=== PATIENT | male | born 1935 | race African-American/Black ===

== ENCOUNTER 2020-05-22 12:48 | Inpatient (IN) | payer MEDICARE ==
[2020-05-22] MEDS ORDERED: ACETAMINOPHEN 325 MG TABLET PO ONE (14:28)
--- NOTE | 2020-05-22 14:30 | ER Document Report ---
ED Medical Screen (RME) - General Chief Complaint: Weakness Stated Complaint: WEAKNESS,CHILLS,NO TASTE Time Seen by Provider: 05/22/20 14:18 Primary Care Provider: AMANDA HERNANDEZ MD [Primary Care Provider] - Follow up as needed Mode of Arrival: Wheelchair Information source: Patient, Relative Notes: HPI; 84-year-old male was brought to emergency room by his daughter complaining of decreased appetite, body aches, chills, loss of taste and smell for the past 5 days. Denies any fevers. No nausea, no vomiting, no shortness of breath, no chest pain complaining of generalized weakness. No COVID-19 exposure. PE: Alert and oriented x3. Lungs: Scattered rhonchi no wheezes no rales, heart: Tachycardic without murmurs, rubs, gallops. I have greeted and performed a rapid initial assessment of this patient. A comprehensive ED assessment and evaluation of the patient, analysis of test results and completion of the medical decision making process will be conducted by additional ED providers. I have specifically instructed the patient or family members with the patient to immediately return to any nursing staff should anything change in the patient's condition or with their chief complaint. TRAVEL OUTSIDE OF THE [place] IN LAST 30 DAYS: No - Related Data Allergies/Adverse Reactions: No Known Allergies Allergy (Unverified 04/03/11 12:44) Past Medical History - Past Medical History Cardiac Medical History: Reports: Hx Hypertension Pulmonary Medical History: Denies: Hx Tuberculosis GI Medical History: Reports: Hx Gastroesophageal Reflux Disease Musculoskeltal Medical History: Reports Hx Arthritis Past Surgical History: Denies: Hx Pacemaker - Immunizations Hx Diphtheria, Pertussis, Tetanus Vaccination: Yes Doctor's Discharge - Discharge Referrals: AMANDA HERNANDEZ MD [Primary Care Provider] - Follow up as needed
--- NOTE | 2020-05-22 16:14 | RADIOLOGY REPORT (SQ) ---
EXAM DESCRIPTION: CHEST SINGLE VIEW IMAGES COMPLETED DATE/TIME: 05/22/2020 2:32 pm REASON FOR STUDY: weakness COMPARISON: 04/09/2011 EXAM PARAMETERS: NUMBER OF VIEWS: One view. TECHNIQUE: Single frontal radiographic view of the chest acquired. RADIATION DOSE: NA LIMITATIONS: None. FINDINGS: LUNGS AND PLEURA: Lungs are hyperinflated. No opacities, masses or pneumothorax. No pleur al effusion. MEDIASTINUM AND HILAR STRUCTURES: No masses. Contour normal. HEART AND VASCULAR STRUCTURES: Heart normal in size. Normal vasculature. BONES: No acute findings. HARDWARE: None in the chest. OTHER: No other significant finding. IMPRESSION: NO ACUTE RADIOGRAPHIC FINDING IN THE CHEST. TECHNICAL DOCUMENTATION: JOB ID: [id number] 2010 [employer]- All Rights Reserved Reading location - IP/workstation name: [email or web address]
[2020-05-22] MEDS ORDERED: NORMAL SALINE 1000 ML 1,000 ML IV ONE (17:22)
--- NOTE | 2020-05-22 17:24 | ER Document Report ---
ED General - General Chief Complaint: General Weakness Stated Complaint: WEAKNESS,CHILLS,NO TASTE Time Seen by Provider: 05/22/20 14:18 Mode of Arrival: Wheelchair Information source: Patient Notes: This 84-year-old man presents to the emergency department with a history of decreased appetite and states that the smell of food makes him sick. He has had no nausea no vomiting or diarrhea. He has been very weak and lying around all week and sleeping. He also denies fever or contact with a known coronavirus positive individual. His family has insisted that he come to the emergency department for further evaluation and treatment. He denies chest pain or shortness of breath he denies cough or fever. TRAVEL OUTSIDE OF THE [place] IN LAST 30 DAYS: No - Related Data Allergies/Adverse Reactions: No Known Allergies Allergy (Verified 05/22/20 16:36) Past Medical History - General Information source: Patient, Relative - Social History Smoking Status: Former Smoker Chew tobacco use (# tins/day): No Frequency of alcohol use: None Drug Abuse: None Family History: Reviewed & Not Pertinent Patient has homicidal ideation: No - Past Medical History Cardiac Medical History: Reports: Hx Hypertension Pulmonary Medical History: Denies: Hx Tuberculosis GI Medical History: Reports: Hx Gastroesophageal Reflux Disease Musculoskeletal Medical History: Reports Hx Arthritis Past Surgical History: Denies: Hx Pacemaker - Immunizations Hx Diphtheria, Pertussis, Tetanus Vaccination: Yes Review of Systems - Review of Systems Notes: Constitutional: + Generalized weakness, + loss of appetite HENT: Negative for sore throat. Eyes: Negative for visual changes. Cardiovascular: Negative for chest pain. Respiratory: Negative for shortness of breath. Gastrointestinal: Negative for abdominal pain, vomiting or diarrhea. Genitourinary: Negative for dysuria. Musculoskeletal: Negative for back pain. Skin: Negative for rash. Neurological: Negative for headaches, weakness or numbness. 10 point ROS negative except as marked above and in HPI. Physical Exam - Vital signs Vitals: Temp Pulse Resp BP Pulse Ox 101.3 F H 111 H 22 H 135/87 H 95 05/22/20 15:58 05/22/20 15:58 05/22/20 15:58 05/22/20 15:58 05/22/20 15:58 - Notes Notes: PHYSICAL EXAMINATION: Physical Exam: General: Well-nourished well-developed 84-year-old man in no acute distress HEENT: NC/AT, pupils equal round and reactive to light, MM moist,nares clear, oropharynx clear, airway patent Neck: supple, no adenopathy, no masses. Good range of motion Lungs: clear, no wheezing, no rales no rhonchi CVS: Regular rate and rhythm no murmur gallop or rub Abdomen: Soft, active, nontender, no masses, no hepatosplenomegaly Ext: No edema, clubbing or cyanosis. Neuro: Alert and responsive, moving all 4 extremities on command, cranial nerves intact, no focal findings Skin: Intact no open lesions, no rash Course - Re-evaluation Re-evalutation: 05/23/20 00:28 Patient had presented with generalized weakness, loss of appetite, poor intake. While at the hospital his O2 sat which was at 95% decreased down to 89% on room air. Patient is now on 3 L of O2. His coronavirus test is positive CT scan reveals bibasilar changes greater on the right than left? Infiltrate., he was febrile 101, white blood cell count was normal. A ferritin, CRP, sed rate, LDH, and D-dimer are added to his lab work. I spoken with Dr Cordoba will admit the patient to [facility]. I will add Zithromax to the Decadron for treatment. Given the patient's age he is high risk. 05/22/20 22:35 05/23/20 00:28 - Vital Signs Vital signs: Temp Pulse Resp BP Pulse Ox 98.7 F 70 31 H 138/59 H 93 05/23/20 16:26 05/23/20 16:26 05/23/20 17:01 05/23/20 17:00 05/23/20 17:01 - Laboratory Results Result Diagrams: 05/22/20 16:22 05/22/20 16:22 Laboratory Results Interpreted: 05/22/20 05/22/20 05/22/20 16:22 16:22 16:22 RBC 5.62 H RDW 16.8 H Lymph % (Auto) 7.0 L Seg Neutrophils % 88.6 H ESR D-Dimer BUN 23 H Creatinine 1.40 H Est GFR ( Amer) 59 L Est GFR (MDRD) Non-Af 48 L Glucose 113 H Lactic Acid 3.8 H Ferritin C-Reactive Protein Urine Protein Urine Ketones 12/26/20 12/26/20 12/26/20 16:22 19:50 22:55 RBC RDW Lymph % (Auto) Seg Neutrophils % ESR 23 H D-Dimer BUN Creatinine Est GFR ( Amer) Est GFR (MDRD) Non-Af Glucose Lactic Acid Ferritin 1150.00 H C-Reactive Protein 219.9 H Urine Protein 100 H Urine Ketones TRACE H 05/22/20 22:55 RBC RDW Lymph % (Auto) Seg Neutrophils % ESR D-Dimer 0.65 H BUN Creatinine Est GFR ( Amer) Est GFR (MDRD) Non-Af Glucose Lactic Acid Ferritin C-Reactive Protein Urine Protein Urine Ketones Critical Laboratory Results Reviewed: Yes Attending or Supervising Physician who Reviewed Labs: ARLEY BOCANEGRA - Lactic acid of 3.8 - Radiology Results Radiology Results Interpreted: 05/22/20 22:35 Chest X-Ray 05/22/20 14:26 IMPRESSION: NO ACUTE RADIOGRAPHIC FINDING IN THE CHEST. Abdomen/Pelvis CT 05/22/20 17:23 IMPRESSION: Mild basilar atelectasis or infiltration, greater on the right. No acute abnormality is seen within the abdomen or pelvis. Additional, chronic-appearing findings are noted as above. TECHNICAL DOCUMENTATION: Quality ID # 436: Final reports with documentation of one or more dose reduction techniques (e.g., Automated exposure control, adjustment of the mA and/or kV according to patient size, use of iterative reconstruction technique) copyright 2011 [employer]- All Rights Reserved Critical Radiology Results Reviewed: Yes Attending or Supervising Physician who Reviewed Radiology: ARLEY BOCANEGRA - EKG Interpretation by Wi Rate: Tachycardia - EKG interpreted by Dr. Bocanegra: Sinus tachycardia, rate 117, CT interval 192 ms, QT 316, QTc 441, left axis deviation, no acute ST or T wave abnormalities, no ischemic findings, , there is no prior EKG for comparison. Interpretation: Abnormal EKG Critical Care Note - Critical Care Note Total time excluding time spent on procedures (mins): 60 - Critical care time spent obtaining history from patient or surrogate, discussions with consultants, development of treatment plan with patient or surrogate, evaluation of patient's response to treatment, examination of patient, ordering and performing treatments and interventions, ordering and review of laboratory studies, re-evaluation of patient's condition, ordering and review of radiographic studies and review of old charts Discharge - Discharge Clinical Impression: COVID-19 virus infection, Hypoxia, Elevated lactic acid level Pneumonia Qualifiers: Pneumonia type: due to unspecified organism Laterality: bilateral Lung location: lower lobe of lung Qualified Code(s): J18.9 - Pneumonia, unspecified organism Fever Qualifiers: Fever type: unspecified Qualified Code(s): R50.9 - Fever, unspecified Condition: Good Disposition: ADMITTED INPATIENT Admitting Provider: [facility] Admitted: [facility]
[2020-05-22 17:35] LABS: ABSOLUTE LYMPHOCYTES (AUTO) 0.5 10^3/uL (0.5-4.7); ABSOLUTE MONOCYTES (AUTO) 0.3 10^3/uL (0.1-1.4); ABSOLUTE NEUT (AUTO) 6.5 10^3/uL (1.7-8.2); BASOPHILS % (AUTO) 0.5 % (0-2); EOSINOPHILS % (AUTO) 0.1 % (0-6); HEMATOCRIT 47.3 % (37.9-51.0); HEMOGLOBIN 15.6 g/dL (13.5-17.0); MEAN CORPUSCULAR HEMOGLOBIN 27.8 pg (27.0-33.4); MEAN CORPUSCULAR VOLUME 84 fl (80-97); MONOCYTES % (AUTO) 3.8 % (3-13); RED BLOOD COUNT 5.62 10^6/uL (4.35-5.55); RED CELL DISTRIBUTION WIDTH 16.8 % (11.5-14.0); SEGMENTED NEUTROPHILS % (AUTO) 88.6 % (42-78); TOTAL CELLS COUNTED % (AUTO) 100 %; WHITE BLOOD COUNT 7.4 10^3/uL (4.0-10.5)
[2020-05-22 17:45] LABS: ALBUMIN 3.5 g/dL (3.5-5.0); ALKALINE PHOSPHATASE 74 U/L (38-126); ANION GAP 13 (5-19); ASPARTATE AMINO TRANSFERASE 41 U/L (17-59); BILIRUBIN,DIRECT 0.3 mg/dL (0.0-0.4); BILIRUBIN,TOTAL 0.6 mg/dL (0.2-1.3); BLOOD UREA NITROGEN 23 mg/dL (7-20); CALCIUM 8.9 mg/dL (8.4-10.2); CARBON DIOXIDE 25 mmol/L (22-30); CHLORIDE 102 mmol/L (98-107); GLUCOSE 113 mg/dL (75-110); POTASSIUM 4.1 mmol/L (3.6-5.0); TOTAL PROTEIN 7.1 g/dL (6.3-8.2)
[2020-05-22 17:54] LABS: PLATELET COUNT 200 10^3/uL (150-450)
[2020-05-22] MEDS ORDERED: NORMAL SALINE IV ONE (19:29)
--- NOTE | 2020-05-22 20:26 | RADIOLOGY REPORT (SQ) ---
EXAM DESCRIPTION: CT ABDOMEN PELVIS WITH IV CONTRAST COMPLETED DATE/TME: 05/22/2020 19:25 CLINICAL HISTORY: 84 years, Male, Weakness, nausea COMPARISON: None. TECHNIQUE: Postcontrast images of the abdomen and pelvis were obtained utilizing 100 mL Omnipaque 350 intravenously. Images stored on PACS. All CT scanners at this facility use dose modulation, iterative reconstruction, and/or weight based dosing when appropriate to reduce radiation dose to as low as reasonably achievable (ALARA). [facility]: Dose Right [facility]: CareDose [facility]: Dose Right [facility]: Teradose 4D [facility]: [employer] LIMITATIONS: None. FINDINGS: Initial images through the lung bases reveal mild bibasilar atelectasis or infiltration, greater on the right. Heart size is normal. There are no effusions within the lower chest. There is a small hiatal hernia. There are bilateral renal hypodensities, measuring up to 1.7 cm on the right and 0.8 cm on the left. Largest hypodensity within the right kidney has an internal Hounsfield density of 8, consistent with a cyst. The smaller renal hypodensities are too small to further characterize but most likely represent cysts as well. The spleen, adrenals, pancreas, and liver are within normal limits. Gallbladder is dilated to 4.4 cm but is otherwise grossly unremarkable. There is no evidence of abnormal biliary ductal dilation. There is no abnormal bowel dilation. There is colonic diverticulosis without evidence of diverticulitis. The prostate gland is mildly enlarged at 5 cm for which clinical correlation is recommended. There is no free fluid, free air, or lymphadenopathy. The appendix appears within normal limits. There is multilevel degenerative change about the spine. There is a small fat-containing umbilical hernia appear IMPRESSION: Mild basilar atelectasis or infiltration, greater on the right. No acute abnormality is seen within the abdomen or pelvis. Additional, chronic-appearing findings are noted as above. TECHNICAL DOCUMENTATION: Quality ID # 436: Final reports with documentation of one or more dose reduction techniques (e.g., Automated exposure control, adjustment of the mA and/or kV according to patient size, use of iterative reconstruction technique) copyright 2011 [employer]- All Rights Reserved
[2020-05-22 20:36] LABS: APPEARANCE,URINE SLIGHTLY-CLOUDY; BILIRUBIN,URINE NEGATIVE (NEGATIVE); COLOR,URINE DARK YELLOW; GLUCOSE, URINE NEGATIVE (NEGATIVE); KETONES,URINE TRACE mg/dL (NEGATIVE); PROTEIN,URINE 100 mg/dL (NEGATIVE); URINE SPECIFIC GRAVITY 1.026; UROBILINOGEN,URINE NEGATIVE mg/dL (<2.0)
--- NOTE | 2020-05-22 22:09 | EKG REPORT ---
SEVERITY:- ABNORMAL ECG - SINUS TACHYCARDIA LEFT ANTERIOR FASCICULAR BLOCK ABNRM R PROG, CONSIDER ASMI OR LEAD PLACEMENT : Confirmed by: Yomi Rodriguez MD 22-May-2020 22:08:59
[2020-05-22] MEDS ORDERED: DEXAMETHASONE SOD PHOS INJ 10 MG/1 ML VIAL IV ONE (22:19)
[2020-05-22] MEDS ORDERED: AZITHROMYCIN INJ 500 MG VIAL IV ONE (22:21)
[2020-05-22 23:29] LABS: C-REACTIVE PROTEIN 219.9 mg/L (<10.0)
[2020-05-23] MEDS: NORMAL SALINE 1000 ML 1,000 ML IV PRN ×2 (06:09→21:57)
[2020-05-23] MEDS ORDERED: NORMAL SALINE 250 ML IV PRN (07:58)
[2020-05-23] MEDS: ASPIRIN 81 MG TABLET, ENT COATED PO SCH (09:47)
[2020-05-23] MEDS: FAMOTIDINE 20 MG TABLET PO SCH ×2 (09:47→21:55)
[2020-05-23] MEDS: CHOLECALCIFEROL (D3) 1,000 UNIT (25 MCG) TABLET PO SCH (09:47)
[2020-05-23] MEDS: ASCORBIC ACID 500 MG TABLET PO SCH ×2 (09:47→18:56)
[2020-05-23] MEDS: ENOXAPARIN SODIUM INJ 40 MG/0.4 ML DISP.SYRIN SUBCUT SCH (09:48)
[2020-05-23] MEDS: DEXAMETHASONE SOD PHOS INJ 10 MG/1 ML VIAL IV SCH (09:48)
[2020-05-23] MEDS: ZINC SULFATE 220 MG CAPSULE PO SCH (09:49)
[2020-05-23] MEDS ORDERED: IVERMECTIN 3 MG TABLET PO ONE (10:00)
--- NOTE | 2020-05-23 14:24 | PDOC H&P ---
History of Present Illness Admission Date/PCP: 05/23/20 00:37 AMANDA HERNANDEZ MD Patient complains of: Generalized weakness History of Present Illness: DARSHANA SCOTT SR is a 84 year old male patient of Dr. Hernandez who presented to the ED with several days history of generalized weakness, lack on interest in his usual activity with family claiming that patient was just laying around at home. He reported loss of taste and poor oral intake for several days. He denied any nausea, vomiting, diarrhea, or abdominal pain. No fever or chills. He denied any dysuria, hematuria, or flank pain. He denied exposure to guerrero virus infected person or outside of his usual abode environment. His initial ED evaluation revealed positive COVID-19 infection status, elevated lactic acid level, elevated inflammatory indices, and slightly elevated D-Dimer. He was advised hospitalization for further evaluation and management. His morbidities are as listed below. Past Medical History Cardiac Medical History: Reports: Hypertension Pulmonary Medical History: Denies: Tuberculosis Renal/ Medical History: Reports: Other - BPH with LUTS GI Medical History: Reports: Gastroesophageal Reflux Disease Musculoskeltal Medical History: Reports: Arthritis Past Surgical History Past Surgical History: Denies: Pacemaker Social History Smoking Status: Former Smoker Electronic Cigarette use?: No Hx Recreational Drug Use: No Hx Prescription Drug Abuse: No - Advance Directive Resuscitation Status: Full Code Family History Parental Family History Reviewed: Yes Children Family History Reviewed: Yes Sibling(s) Family History Reviewed.: Yes Medication/Allergy Home Medications: Finasteride 5 mg PO DAILY 04/03/11 Omeprazole [Prilosec] 20 mg PO DAILY 04/03/11 Prednisone [Deltasone 10 mg Tablet] 10 mg PO DAILY 04/03/11 Amlodipine Besylate [Norvasc 10 mg Tablet] 10 mg PO DAILY 05/23/20 Metoprolol Succinate [Toprol Xl] 200 mg PO DAILY 05/23/20 Tamsulosin HCl [Flomax 0.4 mg Cap.sr] 0.4 mg PO DAILY 05/23/20 Valsartan/Hydrochlorothiazide [Valsartan-Hctz 160-12.5 mg Tab] 1 each PO DAILY 05/23/20 Allergies/Adverse Reactions: No Known Allergies Allergy (Verified 05/22/20 16:36) Review of Systems Constitutional: PRESENT: fatigue, weakness. ABSENT: chills, fever(s), headache(s) Eyes: ABSENT: visual disturbances Ears: ABSENT: hearing changes Nose, Mouth, and Throat: ABSENT: headache(s), sore throat Cardiovascular: ABSENT: chest pain, dyspnea on exertion, edema, orthropnea, palpitations Respiratory: ABSENT: cough, hemoptysis Gastrointestinal: ABSENT: abdominal pain, constipation, diarrhea, hematemesis, hematochezia, nausea, vomiting Genitourinary: ABSENT: dysuria, hematuria Musculoskeletal: ABSENT: joint swelling Integumentary: ABSENT: rash, wounds Neurological: ABSENT: abnormal gait, abnormal speech, confusion, dizziness, focal weakness, syncope Psychiatric: ABSENT: anxiety, depression, homidical ideation, suicidal ideation Endocrine: ABSENT: cold intolerance, heat intolerance, polydipsia, polyuria Hematologic/Lymphatic: ABSENT: easy bleeding, easy bruising, lymphadenopathy Allergic/Immunologic: ABSENT: seasonal rhinorrhea Physical Exam Vital Signs: Temp Pulse Resp BP Pulse Ox 98.7 F 87 17 114/60 96 05/23/20 06:10 05/22/20 19:43 05/23/20 07:01 05/23/20 07:00 05/23/20 07:01 Intake & Output 05/22/20 05/23/20 05/24/20 06:59 06:59 06:59 Intake Total 3370 Balance 3370 Weight 79 kg General appearance: PRESENT: mild distress - with worsening desaturation in his oxygen level with exertion Head exam: PRESENT: atraumatic, normocephalic Eye exam: PRESENT: conjunctiva pink, EOMI, PERRLA. ABSENT: scleral icterus Ear exam: PRESENT: normal external ear exam Mouth exam: PRESENT: dry mucosa, neck supple, tongue midline Neck exam: PRESENT: full ROM. ABSENT: carotid bruit, JVD, lymphadenopathy, thyr omegaly Respiratory exam: PRESENT: clear to auscultation sherin, decreased breath sounds - at lung bases Cardiovascular exam: PRESENT: RRR, +S1, +S2. ABSENT: diastolic murmur, rubs, systolic murmur Vascular exam: PRESENT: normal capillary refill. ABSENT: pallor GI/Abdominal exam: PRESENT: normal bowel sounds, soft. ABSENT: distended, guarding, mass, organolmegaly, rebound, tenderness Rectal exam: PRESENT: deferred Extremities exam: ABSENT: pedal edema Neurological exam: PRESENT: alert, awake, oriented to person, oriented to place, oriented to time, oriented to situation, CN II-XII grossly intact. ABSENT: motor sensory deficit Psychiatric exam: PRESENT: appropriate affect, normal mood. ABSENT: homicidal ideation, suicidal ideation Skin exam: PRESENT: dry, intact, warm. ABSENT: cyanosis, rash Results Laboratory Results: 05/22/20 16:22 05/22/20 16:22 05/22/20 05/22/20 05/22/20 16:22 16:22 16:22 WBC 7.4 RBC 5.62 H Hgb 15.6 Hct 47.3 MCV 84 MCH 27.8 MCHC 33.0 RDW 16.8 H Plt Count 200 Seg Neutrophils % 88.6 H Sodium 140.1 Potassium 4.1 Chloride 102 Carbon Dioxide 25 Anion Gap 13 BUN 23 H Creatinine 1.40 H Est GFR ( Amer) 59 L Glucose 113 H Lactic Acid 3.8 H Calcium 8.9 Ferritin Total Bilirubin 0.6 AST 41 Alkaline Phosphatase 74 C-Reactive Protein Total Protein 7.1 Albumin 3.5 Urine Color Urine Appearance Urine pH Ur Specific [place] Urine Protein Urine Glucose (UA) Urine Ketones Urine Blood Urine RBC (Auto) 05/22/20 05/22/20 05/22/20 16:22 19:50 21:35 WBC RBC Hgb Hct MCV MCH MCHC RDW Plt Count Seg Neutrophils % Sodium Potassium Chloride Carbon Dioxide Anion Gap BUN Creatinine Est GFR ( Amer) Glucose Lactic Acid 1.9 Calcium Ferritin 1150.00 H Total Bilirubin AST Alkaline Phosphatase C-Reactive Protein 219.9 H Total Protein Albumin Urine Color DARK YELLOW Urine Appearance SLIGHTLY-CLOUDY Urine pH 5.0 Ur Specific [place] 1.026 Urine Protein 100 H Urine Glucose (UA) NEGATIVE Urine Ketones TRACE H Urine Blood NEGATIVE Urine RBC (Auto) 1 05/22/20 16:22 Troponin I 0.029 Impressions: Chest X-Ray 05/22/20 14:26 IMPRESSION: NO ACUTE RADIOGRAPHIC FINDING IN THE CHEST. Abdomen/Pelvis CT 05/22/20 17:23 IMPRESSION: Mild basilar atelectasis or infiltration, greater on the right. No acute abnormality is seen within the abdomen or pelvis. Additional, chronic-appearing findings are noted as above. TECHNICAL DOCUMENTATION: Quality ID # 436: Final reports with documentation of one or more dose reduction techniques (e.g., Automated exposure control, adjustment of the mA and/or kV according to patient size, use of iterative reconstruction technique) copyright 2011 [employer]- All Rights Reserved Assessment & Plan - Diagnosis (1) COVID-19 virus infection Is this a current diagnosis for this admission?: Yes Plan: See covering admitting attending physician orders for details about care plan. (2) Pneumonia due to COVID-19 virus Is this a current diagnosis for this admission?: Yes Plan: See covering admitting attending physician orders for details about care plan. (3) HTN (hypertension) Qualifiers: Hypertension type: essential hypertension Qualified Code(s): I10 - Essential (primary) hypertension Is this a current diagnosis for this admission?: Yes Plan: See covering admitting attending physician orders for details about care plan. (4) BPH loc w urin obs/LUTS Is this a current diagnosis for this admission?: Yes Plan: See covering admitting attending physician orders for details about care plan. (5) Hypoxia Is this a current diagnosis for this admission?: Yes Plan: See covering admitting attending physician orders for details about care plan. (6) GERD (gastroesophageal reflux disease) Qualifiers: Esophagitis presence: esophagitis presence not specified Qualified Code(s): K21.9 - Gastro-esophageal reflux disease without esophagitis Is this a current diagnosis for this admission?: Yes Plan: See covering admitting attending physician orders for details about care plan. - Time Time Spent: 50 to 70 Minutes Medications reviewed and adjusted accordingly: Yes Anticipated Discharge Disposition: Home with Home Health Anticipated Discharge Timeframe: within 72 hours - Inpatient Certification Based on my medical assessment, after consideration of the patient's comorbidities, presenting symptoms, or acuity I expect that the services needed warrant INPATIENT care.: Yes I certify that my determination is in accordance with my understanding of Medicare's requirements for reasonable and necessary INPATIENT services [42 CFR 412.3e].: Yes Medical Necessity: Significant Comorbidiites Make Outpatient Treatment Too Risky, Need Close Monitoring Due to Risk of Patient Decompensation, Need For IV Fluids, Need For Continuous Telemetry Monitoring, Need for IV Antibiotics, Risk of Complication if Not Cared For in Hospital, Risk of Diagnosis Which Will Require Inpatient Eval/Care/Monitoring Post Hospital Care: D/C [facility] [employer] Documentation - Plan Summary Plan Summary: See covering admitting attending physician orders for details about care plan.
[2020-05-23] MEDS: MELATONIN 5 MG TABLET PO SCH (21:55)
[2020-05-23] MEDS: AZITHROMYCIN 500 MG in DEXTROSE 5%-WATER 250 ML IV SCH (21:59)
[2020-05-24 05:58] LABS: ABSOLUTE LYMPHOCYTES (AUTO) 0.7 10^3/uL (0.5-4.7); ABSOLUTE MONOCYTES (AUTO) 0.3 10^3/uL (0.1-1.4); ABSOLUTE NEUT (AUTO) 9.6 10^3/uL (1.7-8.2); BASOPHILS % (AUTO) 0.1 % (0-2); HEMATOCRIT 39.3 % (37.9-51.0); LYMPHOCYTES % (AUTO) 6.2 % (13-45); MEAN CORPUSCULAR HEMOGLOBIN 28.7 pg (27.0-33.4); MEAN CORPUSCULAR HGB CONC 34.2 g/dL (32.0-36.0); MEAN CORPUSCULAR VOLUME 84 fl (80-97); MONOCYTES % (AUTO) 3.1 % (3-13); PLATELET COUNT 270 10^3/uL (150-450); RED BLOOD COUNT 4.68 10^6/uL (4.35-5.55); RED CELL DISTRIBUTION WIDTH 16.7 % (11.5-14.0); SEGMENTED NEUTROPHILS % (AUTO) 90.6 % (42-78); TOTAL CELLS COUNTED % (AUTO) 100 %; WHITE BLOOD COUNT 10.6 10^3/uL (4.0-10.5)
[2020-05-24 05:59] LABS: HEMOGLOBIN 13.5 g/dL (13.5-17.0)
[2020-05-24 06:10] LABS: ALBUMIN 2.8 g/dL (3.5-5.0); ALKALINE PHOSPHATASE 60 U/L (38-126); ANION GAP 9 (5-19); ASPARTATE AMINO TRANSFERASE 42 U/L (17-59); BILIRUBIN,DIRECT 0.2 mg/dL (0.0-0.4); BILIRUBIN,TOTAL 0.4 mg/dL (0.2-1.3); BLOOD UREA NITROGEN 14 mg/dL (7-20); CALCIUM 8.3 mg/dL (8.4-10.2); CARBON DIOXIDE 24 mmol/L (22-30); CHLORIDE 107 mmol/L (98-107); CHOLESTEROL 118.08 mg/dL (0-200); GLUCOSE 114 mg/dL (75-110); POTASSIUM 3.9 mmol/L (3.6-5.0); TOTAL PROTEIN 5.9 g/dL (6.3-8.2); TRIGLYCERIDES 88 mg/dL (<150)
[2020-05-24 06:21] LABS: DIRECT LDL 32 mg/dL (<100)
[2020-05-24] MEDS: FINASTERIDE 5 MG TABLET PO SCH (09:40)
[2020-05-24] MEDS: CHOLECALCIFEROL (D3) 1,000 UNIT (25 MCG) TABLET PO SCH (09:40)
[2020-05-24] MEDS: TAMSULOSIN HCL 0.4 MG CAP.SR.24H PO SCH (09:40)
[2020-05-24] MEDS: ASPIRIN 81 MG TABLET, ENT COATED PO SCH (09:40)
[2020-05-24] MEDS: ASCORBIC ACID 500 MG TABLET PO SCH ×2 (09:40→18:29)
[2020-05-24] MEDS: FAMOTIDINE 20 MG TABLET PO SCH ×2 (09:40→22:22)
[2020-05-24] MEDS: DEXAMETHASONE SOD PHOS INJ 10 MG/1 ML VIAL IV SCH (09:40)
[2020-05-24] MEDS: ENOXAPARIN SODIUM INJ 40 MG/0.4 ML DISP.SYRIN SUBCUT SCH (09:40)
[2020-05-24] MEDS: AMLODIPINE BESYLATE 10 MG TABLET PO SCH (09:40)
[2020-05-24] MEDS: ZINC SULFATE 220 MG CAPSULE PO SCH (09:40)
[2020-05-24] MEDS: NORMAL SALINE 1000 ML 1,000 ML IV PRN ×2 (10:06→22:25)
[2020-05-24] MEDS ORDERED: REMDESIVIR 200 MG in NORMAL SALINE 250 ML IV ONE (11:00)
--- NOTE | 2020-05-24 20:23 | PDOC PROGRESS REPORT ---
Subjective Date:: 05/24/20 Subjective:: Patient was admitted yesterday for the management of Covid pneumonia, is seen to day by the bedside, he complain of lack of energy, loss of appetite, no desire to eat Reason For Visit: COVID PNEUMONIA, HTN Physical Exam Vital Signs: Temp Pulse Resp BP Pulse Ox 98.7 F 74 34 H 128/65 H 89 L 05/24/20 10:00 05/24/20 14:00 05/24/20 11:25 05/24/20 11:25 05/24/20 11:25 Intake & Output 05/23/20 05/24/20 05/25/20 06:59 06:59 06:59 Intake Total 3370 1453 1250 Output Total 700 225 Balance 3370 753 1025 Weight 79 kg 90.3 kg General appearance: PRESENT: no acute distress Eye exam: PRESENT: PERRLA Respiratory exam: PRESENT: clear to auscultation sherin Cardiovascular exam: PRESENT: +S1, +S2 GI/Abdominal exam: PRESENT: soft Neurological exam: PRESENT: alert Results Laboratory Results: 05/24/20 04:33 05/24/20 04:33 05/24/20 05/24/20 04:33 04:33 WBC 10.6 H RBC 4.68 Hgb 13.5 D Hct 39.3 MCV 84 MCH 28.7 MCHC 34.2 RDW 16.7 H Plt Count 270 Seg Neutrophils % 90.6 H Sodium 139.9 Potassium 3.9 Chloride 107 Carbon Dioxide 24 Anion Gap 9 BUN 14 Creatinine 0.95 Est GFR ( Amer) > 60 Glucose 114 H Calcium 8.3 L Total Bilirubin 0.4 AST 42 Alkaline Phosphatase 60 Total Protein 5.9 L Albumin 2.8 L Triglycerides 88 Cholesterol 118.08 LDL Cholesterol Direct 32 VLDL Cholesterol 18.0 HDL Cholesterol 49 05/22/20 21:35 Blood Blood Culture (PCR) - Final 05/22/20 16:22 Troponin I 0.029 Impressions: Chest X-Ray 05/22/20 14:26 IMPRESSION: NO ACUTE RADIOGRAPHIC FINDING IN THE CHEST. Abdomen/Pelvis CT 05/22/20 17:23 IMPRESSION: Mild basilar atelectasis or infiltration, greater on the right. No acute abnormality is seen within the abdomen or pelvis. Additional, chronic-appearing findings are noted as above. TECHNICAL DOCUMENTATION: Quality ID # 436: Final reports with documentation of one or more dose reduction techniques (e.g., Automated exposure control, adjustment of the mA and/or kV according to patient size, use of iterative reconstruction technique) copyright 2011 [employer]- All Rights Reserved Assessment & Plan - Diagnosis (1) COVID-19 virus infection Is this a current diagnosis for this admission?: Yes Plan: Patient will continue IV remdesivir, dexamethasone (2) Anorexia Is this a current diagnosis for this admission?: Yes Plan: Start Megace to encourage food intake (3) Pneumonia Qualifiers: Pneumonia type: due to unspecified organism Laterality: bilateral Lung location: lower lobe of lung Qualified Code(s): J18.9 - Pneumonia, unspecified organism Is this a current diagnosis for this admission?: Yes (4) Hypoxia Is this a current diagnosis for this admission?: Yes - Time Time Spent with patient: 35 or more minutes Level of Care: IMCU Medications reviewed and adjusted accordingly: Yes Anticipated discharge: Home Anticipated DC Timeframe: within 72 hours - Inpatient Certification Based on my medical assessment, after consideration of the patient's comorbidities, presenting symptoms, or acuity I expect that the services needed warrant INPATIENT care.: Yes I certify that my determination is in accordance with my understanding of Medicare's requirements for reasonable and necessary INPATIENT services [42 CFR 412.3e].: Yes
[2020-05-24] MEDS: MELATONIN 5 MG TABLET PO SCH (22:22)
[2020-05-24] MEDS: AZITHROMYCIN 500 MG in DEXTROSE 5%-WATER 250 ML IV SCH (22:22)
[2020-05-24] MEDS: MEGESTROL ACETATE 20 MG TABLET PO SCH (22:26)
[2020-05-25] MEDS: ACETAMINOPHEN 325 MG TABLET PO PRN (04:34)
[2020-05-25] MEDS: NORMAL SALINE 1000 ML 1,000 ML IV PRN ×2 (08:42→19:00)
[2020-05-25] MEDS: DEXAMETHASONE SOD PHOS INJ 10 MG/1 ML VIAL IV SCH (10:48)
[2020-05-25] MEDS: TAMSULOSIN HCL 0.4 MG CAP.SR.24H PO SCH (10:48)
[2020-05-25] MEDS: ASPIRIN 81 MG TABLET, ENT COATED PO SCH (10:48)
[2020-05-25] MEDS: AMLODIPINE BESYLATE 10 MG TABLET PO SCH (10:48)
[2020-05-25] MEDS: CHOLECALCIFEROL (D3) 1,000 UNIT (25 MCG) TABLET PO SCH (10:48)
[2020-05-25] MEDS: FINASTERIDE 5 MG TABLET PO SCH (10:48)
[2020-05-25] MEDS: ASCORBIC ACID 500 MG TABLET PO SCH ×2 (10:48→18:08)
[2020-05-25] MEDS: ZINC SULFATE 220 MG CAPSULE PO SCH (10:48)
[2020-05-25] MEDS: FAMOTIDINE 20 MG TABLET PO SCH ×2 (10:48→21:14)
[2020-05-25] MEDS: REMDESIVIR 100 MG in NORMAL SALINE 250 ML IV SCH (10:49)
[2020-05-25] MEDS: ENOXAPARIN SODIUM INJ 40 MG/0.4 ML DISP.SYRIN SUBCUT SCH (10:49)
[2020-05-25] MEDS: MEGESTROL ACETATE 20 MG TABLET PO SCH ×2 (10:49→21:14)
--- NOTE | 2020-05-25 20:07 | PDOC PROGRESS REPORT ---
Subjective Date:: 05/25/20 Subjective:: Patient seen by the bedside, yesterday he was started on Megace for appetite sti mulation, today is requiring more oxygen now on oxygen Oxymizer, admitted for Covid pneumonia, slight improvement in the appetite since started on Megace Reason For Visit: COVID PNEUMONIA, HTN Physical Exam Vital Signs: Temp Pulse Resp BP Pulse Ox 98.7 F 72 26 H 124/66 94 05/25/20 17:25 05/25/20 17:25 05/25/20 17:25 05/25/20 17:25 05/25/20 17:25 Intake & Output 05/24/20 05/25/20 05/26/20 06:59 06:59 06:59 Intake Total 1453 2500 1520 Output Total 700 600 800 Balance 753 1900 720 Weight 90.3 kg 92.7 kg General appearance: PRESENT: no acute distress Eye exam: PRESENT: PERRLA Respiratory exam: PRESENT: rhonchi Cardiovascular exam: PRESENT: +S1, +S2 GI/Abdominal exam: PRESENT: soft Neurological exam: PRESENT: alert Results Laboratory Results: 05/24/20 04:33 05/24/20 04:33 05/22/20 21:35 Blood Blood Culture (PCR) - Final 05/22/20 21:35 Blood Blood Culture - Final Micrococcus Species 05/22/20 16:22 Troponin I 0.029 Impressions: Chest X-Ray 05/22/20 14:26 IMPRESSION: NO ACUTE RADIOGRAPHIC FINDING IN THE CHEST. Abdomen/Pelvis CT 05/22/20 17:23 IMPRESSION: Mild basilar atelectasis or infiltration, greater on the right. No acute abnormality is seen within the abdomen or pelvis. Additional, chronic-appearing findings are noted as above. TECHNICAL DOCUMENTATION: Quality ID # 436: Final reports with documentation of one or more dose reduction techniques (e.g., Automated exposure control, adjustment of the mA and/or kV according to patient size, use of iterative reconstruction technique) copyright 2011 [employer]- All Rights Reserved Assessment & Plan - Diagnosis (1) COVID-19 virus infection Is this a current diagnosis for this admission?: Yes Plan: Patient will continue IV dexamethasone, remdesivir (2) Anorexia Is this a current diagnosis for this admission?: Yes (3) Pneumonia Qualifiers: Pneumonia type: due to unspecified organism Laterality: bilateral Lung location: lower lobe of lung Qualified Code(s): J18.9 - Pneumonia, unspecified organism Is this a current diagnosis for this admission?: Yes Plan: Continue IV antibiotic for possible bacterial pneumonia (4) Acute hypoxemic respiratory failure Is this a current diagnosis for this admission?: Yes Plan: Patient requirement for oxygen is increased now on Oxymizer, Get CT chest without contrast - Time Time Spent with patient: 35 or more minutes Level of Care: IMCU Medications reviewed and adjusted accordingly: Yes Anticipated discharge: Home Anticipated DC Timeframe: Other - Inpatient Certification Based on my medical assessment, after consideration of the patient's comorbidities, presenting symptoms, or acuity I expect that the services needed warrant INPATIENT care.: Yes I certify that my determination is in accordance with my understanding of Medicare's requirements for reasonable and necessary INPATIENT services [42 CFR 412.3e].: Yes
[2020-05-25] MEDS: MELATONIN 5 MG TABLET PO SCH (21:14)
[2020-05-25] MEDS: AZITHROMYCIN 500 MG in DEXTROSE 5%-WATER 250 ML IV SCH (22:53)
[2020-05-26] MEDS: REMDESIVIR 100 MG in NORMAL SALINE 250 ML IV SCH (10:41)
[2020-05-26] MEDS: MEGESTROL ACETATE 20 MG TABLET PO SCH ×2 (10:41→21:11)
[2020-05-26] MEDS: CHOLECALCIFEROL (D3) 1,000 UNIT (25 MCG) TABLET PO SCH (10:42)
[2020-05-26] MEDS: ENOXAPARIN SODIUM INJ 40 MG/0.4 ML DISP.SYRIN SUBCUT SCH (10:42)
[2020-05-26] MEDS: ASCORBIC ACID 500 MG TABLET PO SCH ×2 (10:42→18:02)
[2020-05-26] MEDS: TAMSULOSIN HCL 0.4 MG CAP.SR.24H PO SCH (10:42)
[2020-05-26] MEDS: FINASTERIDE 5 MG TABLET PO SCH (10:42)
[2020-05-26] MEDS: ASPIRIN 81 MG TABLET, ENT COATED PO SCH (10:42)
[2020-05-26] MEDS: DEXAMETHASONE SOD PHOS INJ 10 MG/1 ML VIAL IV SCH (10:42)
[2020-05-26] MEDS: AMLODIPINE BESYLATE 10 MG TABLET PO SCH (10:42)
[2020-05-26] MEDS: FAMOTIDINE 20 MG TABLET PO SCH ×2 (10:42→21:11)
[2020-05-26] MEDS: ZINC SULFATE 220 MG CAPSULE PO SCH (10:42)
--- NOTE | 2020-05-26 13:49 | RADIOLOGY REPORT (SQ) ---
EXAM DESCRIPTION: CT CHEST WITHOUT IMAGES COMPLETED DATE/TIME: 05/26/2020 1:27 pm REASON FOR STUDY: pneumonia COMPARISON: Conventional radiographs obtained earlier the same day. TECHNIQUE: CT scan performed of the chest without intravenous contrast. Images reviewed with lung, soft tissue and bone windows. Reconstructed coronal and sagittal MPR images reviewed. All images st ored on PACS. All CT scanners at this facility use dose modulation, iterative reconstruction, and/or weight based d osing when appropriate to reduce radiation dose to as low as reasonably achievable (ALARA). [facility]: Dose Right [facility]: CareDose [facility]: Dose Right [facility]: Teradose 4D [facility]: Smart EUROB[employer] RADIATION DOSE: CT Rad equipment meets quality standard of care and radiation dose reduction techniq ues were employed. CTDIvol: 15.4 mGy. DLP: 647 mGy-cm. mGy. LIMITATIONS: No technical limitations. FINDINGS: LUNGS AND PLEURA: There is diffuse bilateral ground-glass opacities consistent with either edema, atelectasis or pneumonia. Extensive bilateral centrilobular emphysematous changes. Probable underlying pulmonary fibrosis as well. Scattered subpleural blebs. Minimal focal consolidation in the periphery of the right lower lobe. Small pleural effusions. . HILAR AND MEDIASTINAL STRUCTURES: Nonspecific small mediastinal lymph nodes. Most likely reactive. HEART AND VASCULAR STRUCTURES: No aneurysm. No pericardial effusion. UPPER ABDOMEN: Mild peripancreatic inflammatory changes are now present new from the November 14 in [facility] for pancreatitis. Hyperattenuating right renal lesion most likely hemorrhagic cyst. Hounsfi eld units measure 64. THYROID AND OTHER SOFT TISSUES: No masses. No adenopathy. BONES: No significant finding. HARDWARE: None in the chest. OTHER: No other significant findings. IMPRESSION: Diffuse bilateral ground-glass opacities consistent with either edema, atelectasis or pn eumonia. Extensive centrilobular emphysematous changes. Probable underlying pulmonary fibrosis. Peripancreatic inflammatory changes suspicious for pancreatitis new from prior exam. Hyperattenuating lesion in the right kidney most likely hemorrhagic cyst. TECHNICAL DOCUMENTATION: JOB ID: [id number] Quality ID # 436: Final reports with documentation of one or more dose reduction techniques (e.g., Au tomated exposure control, adjustment of the mA and/or kV according to patient size, use of iterative reconstruction technique) 2010 [employer]- All Rights Reserved Reading location - IP/workstation name: [email or web address]
[2020-05-26 15:15] LABS: ARTERIAL BLOOD BASE EXCESS -2.3 mmol/L; ARTERIAL BLOOD H2CO3 0.77 mmol/L (1.05-1.35); ARTERIAL BLOOD HCO3 19.2 mmol/L (20-24); ARTERIAL BLOOD O2 SATURATION 86.3 % (94-98); ARTERIAL BLOOD PCO2 25.7 mmHg (35-45); ARTERIAL BLOOD PH 7.49 (7.35-7.45)
[2020-05-26 15:16] LABS: ARTERIAL BLOOD FIO2 15L
--- NOTE | 2020-05-26 17:04 | PDOC PROGRESS REPORT ---
Subjective Date:: 05/26/20 Subjective:: I saw patient by the bedside, is trying to compensate for breathing, he laid on his side, the arterial blood gas on FiO2 15 L, pH is 7.49, PO2 46 PCO2 25.7 bicarbonate is 19, consistent respiratory alkalosis with severe hypoxemia. The CAT scan of the chest without contrast demonstrated diffuse bilateral groundglass opacities consistent with edema, atelectasis or pneumonia. Ex tensive bilateral centrilobular emphysematous changes. Scattered subpleural blebs. Minimal focal consolidation in the periphery of the right lower lobe Reason For Visit: COVID PNEUMONIA, HTN Physical Exam Vital Signs: Temp Pulse Resp BP Pulse Ox 97.9 F 74 24 H 135/72 H 91 L 05/26/20 12:01 05/26/20 14:00 05/26/20 12:01 05/26/20 12:01 05/26/20 12:01 Intake & Output 05/25/20 05/26/20 05/27/20 06:59 06:59 06:59 Intake Total 2500 2770 Output Total 600 1200 Balance 1900 1570 Weight 92.7 kg 91.9 kg General appearance: PRESENT: no acute distress Eye exam: PRESENT: PERRLA Respiratory exam: PRESENT: clear to auscultation sherin, rhonchi Cardiovascular exam: PRESENT: +S1, +S2 GI/Abdominal exam: PRESENT: soft Neurological exam: PRESENT: alert, CN II-XII grossly intact Results Laboratory Results: 05/24/20 04:33 05/24/20 04:33 05/26/20 05/26/20 15:02 16:16 Carbonic Acid 0.77 L HCO3/H2CO3 Ratio 24:1 ABG pH 7.49 H ABG pCO2 25.7 L ABG pO2 46.0 L ABG HCO3 19.2 L ABG O2 Saturation 86.3 L ABG Base Excess -2.3 FiO2 15L Lipase 124.3 05/22/20 21:35 Blood Blood Culture (PCR) - Final 05/22/20 21:35 Blood Blood Culture - Final Micrococcus Species 05/22/20 16:22 Troponin I 0.029 Impressions: Chest X-Ray 05/22/20 14:26 IMPRESSION: NO ACUTE RADIOGRAPHIC FINDING IN THE CHEST. Abdomen/Pelvis CT 05/22/20 17:23 IMPRESSION: Mild basilar atelectasis or infiltration, greater on the right. No acute abnormality is seen within the abdomen or pelvis. Additional, chronic-appearing findings are noted as above. TECHNICAL DOCUMENTATION: Quality ID # 436: Final reports with documentation of one or more dose reduction techniques (e.g., Automated exposure control, adjustment of the mA and/or kV according to patient size, use of iterative reconstruction technique) copyright 2011 [employer]- All Rights Reserved Chest CT 05/26/20 00:00 IMPRESSION: Diffuse bilateral ground-glass opacities consistent with either edema, atelectasis or pneumonia. Extensive centrilobular emphysematous changes. Probable underlying pulmonary fibrosis. Peripancreatic inflammatory changes suspicious for pancreatitis new from prior exam. Hyperattenuating lesion in the right kidney most likely hemorrhagic cyst. Assessment & Plan - Diagnosis (1) Acute hypoxemic respiratory failure Is this a current diagnosis for this admission?: Yes Plan: He has severe hypoxemic respiratory failure,Start patient on BiPAP to support breathing (2) COVID-19 virus infection Is this a current diagnosis for this admission?: Yes Plan: Patient will continue IV dexamethasone, remdesivir (3) Anorexia Is this a current diagnosis for this admission?: Yes (4) Pneumonia Qualifiers: Pneumonia type: due to unspecified organism Laterality: bilateral Lung location: lower lobe of lung Qualified Code(s): J18.9 - Pneumonia, unspecified organism Is this a current diagnosis for this admission?: Yes Plan: Continue IV antibiotic for possible bacterial pneumonia (5) Chronic obstructive pulmonary disease (COPD) Qualifiers: COPD type: emphysema Emphysema type: centrilobular Qualified Code(s): J43.2 - Centrilobular emphysema Is this a current diagnosis for this admission?: Yes Plan: Start bronchodilators, Trelegy (6) Pancreatitis Qualifiers: Chronicity: acute Pancreatitis type: unspecified pancreatitis type Acute pancreatitis complication: unspecified Qualified Code(s): K85.90 - Acute pancreatitis without necrosis or infection, unspecified Is this a current diagnosis for this admission?: Yes Plan: CT scan suggests mild peripancreatic inflammatory changes - Time Time Spent with patient: 35 or more minutes Level of Care: IMCU Medications reviewed and adjusted accordingly: Yes Anticipated discharge: Home Anticipated DC Timeframe: Other - Inpatient Certification Based on my medical assessment, after consideration of the patient's comorbidities, presenting symptoms, or acuity I expect that the services needed warrant INPATIENT care.: Yes I certify that my determination is in accordance with my understanding of Medicare's requirements for reasonable and necessary INPATIENT services [42 CFR 412.3e].: Yes
[2020-05-26] MEDS: MELATONIN 5 MG TABLET PO SCH (21:11)
[2020-05-26] MEDS: AZITHROMYCIN 500 MG in DEXTROSE 5%-WATER 250 ML IV SCH (21:12)
[2020-05-27] MEDS: NORMAL SALINE 1000 ML 1,000 ML IV PRN (06:15)
[2020-05-27] MEDS: MEGESTROL ACETATE 20 MG TABLET PO SCH ×2 (10:15→21:12)
[2020-05-27] MEDS: ENOXAPARIN SODIUM INJ 40 MG/0.4 ML DISP.SYRIN SUBCUT SCH (10:58)
[2020-05-27] MEDS: CHOLECALCIFEROL (D3) 1,000 UNIT (25 MCG) TABLET PO SCH (10:58)
[2020-05-27] MEDS: REMDESIVIR 100 MG in NORMAL SALINE 250 ML IV SCH (10:58)
[2020-05-27] MEDS: DEXAMETHASONE SOD PHOS INJ 10 MG/1 ML VIAL IV SCH (10:58)
[2020-05-27] MEDS: ZINC SULFATE 220 MG CAPSULE PO SCH (10:59)
[2020-05-27] MEDS: FAMOTIDINE 20 MG TABLET PO SCH ×2 (10:59→21:12)
[2020-05-27] MEDS: FINASTERIDE 5 MG TABLET PO SCH (10:59)
[2020-05-27] MEDS: AMLODIPINE BESYLATE 10 MG TABLET PO SCH (10:59)
[2020-05-27] MEDS: ASCORBIC ACID 500 MG TABLET PO SCH ×2 (10:59→17:11)
[2020-05-27] MEDS: ASPIRIN 81 MG TABLET, ENT COATED PO SCH (11:00)
[2020-05-27] MEDS: TAMSULOSIN HCL 0.4 MG CAP.SR.24H PO SCH (11:00)
[2020-05-27] MEDS: DEXTROSE 5%-1/2 NORMAL SALINE 1,000 ML IV PRN (13:11)
--- NOTE | 2020-05-27 14:10 | PDOC PROGRESS REPORT ---
Subjective Date:: 05/27/20 Subjective:: Patient was seen by the bedside, He continues to require noninvasive positive pr essure ventilation BiPAP, the nurses said he has not been eating, he was started on appetite stimulant the last time he was evaluated. Reason For Visit: COVID PNEUMONIA, HTN Physical Exam Vital Signs: Temp Pulse Resp BP Pulse Ox 97.6 F 73 22 H 128/72 H 99 05/27/20 11:40 05/27/20 11:40 05/27/20 11:40 05/27/20 11:40 05/27/20 12:37 Intake & Output 05/26/20 05/27/20 05/28/20 06:59 06:59 06:59 Intake Total 3770 740 100 Output Total 1200 425 200 Balance 2570 315 -100 Weight 91.9 kg 94 kg General appearance: PRESENT: other - Patient is alert on NIPPV Eye exam: PRESENT: PERRLA Respiratory exam: PRESENT: clear to auscultation sherin, rhonchi Cardiovascular exam: PRESENT: +S1, +S2 GI/Abdominal exam: PRESENT: soft Neurological exam: PRESENT: alert Results Laboratory Results: 05/24/20 04:33 05/24/20 04:33 05/26/20 05/26/20 15:02 16:16 Carbonic Acid 0.77 L HCO3/H2CO3 Ratio 24:1 ABG pH 7.49 H ABG pCO2 25.7 L ABG pO2 46.0 L ABG HCO3 19.2 L ABG O2 Saturation 86.3 L ABG Base Excess -2.3 FiO2 15L Lipase 124.3 05/22/20 16:22 Troponin I 0.029 Impressions: Chest X-Ray 05/22/20 14:26 IMPRESSION: NO ACUTE RADIOGRAPHIC FINDING IN THE CHEST. Abdomen/Pelvis CT 05/22/20 17:23 IMPRESSION: Mild basilar atelectasis or infiltration, greater on the right. No acute abnormality is seen within the abdomen or pelvis. Additional, chronic-appearing findings are noted as above. TECHNICAL DOCUMENTATION: Quality ID # 436: Final reports with documentation of one or more dose reduction techniques (e.g., Automated exposure control, adjustment of the mA and/or kV according to patient size, use of iterative reconstruction technique) copyright 2011 [employer]- All Rights Reserved Chest CT 05/26/20 00:00 IMPRESSION: Diffuse bilateral ground-glass opacities consistent with either edema, atelectasis or pneumonia. Extensive centrilobular emphysematous changes. Probable underlying pulmonary fibrosis. Peripancreatic inflammatory changes suspicious for pancreatitis new from prior exam. Hyperattenuating lesion in the right kidney most likely hemorrhagic cyst. Assessment & Plan - Diagnosis (1) Acute hypoxemic respiratory failure Is this a current diagnosis for this admission?: Yes Plan: Patient continues to require noninvasive positive pressure ventilation BiPAP (2) COVID-19 virus infection Is this a current diagnosis for this admission?: Yes Plan: He has SARS-CoV-2 pneumonia, presently on IV dexamethasone, remdesivir, (3) Anorexia Is this a current diagnosis for this admission?: Yes Plan: Continue Megace (4) Pneumonia Qualifiers: Pneumonia type: due to unspecified organism Laterality: bilateral Lung location: lower lobe of lung Qualified Code(s): J18.9 - Pneumonia, unspecified organism Is this a current diagnosis for this admission?: Yes Plan: Patient also on antibiotic to cover bacterial pneumonia (5) Chronic obstructive pulmonary disease (COPD) Qualifiers: COPD type: emphysema Emphysema type: centrilobular Qualified Code(s): J43.2 - Centrilobular emphysema Is this a current diagnosis for this admission?: Yes Plan: He has centrilobular emphysema, the dexamethasone may also help his COPD (6) Pancreatitis Qualifiers: Chronicity: acute Pancreatitis type: unspecified pancreatitis type Acute pancreatitis complication: unspecified Qualified Code(s): K85.90 - Acute pancreatitis without necrosis or infection, unspecified Is this a current diagnosis for this admission?: Yes Plan: The lipase was normal, the CT scan suggest inflamed pancreas - Time Time Spent with patient: 35 or more minutes Level of Care: IMCU Medications reviewed and adjusted accordingly: Yes Anticipated discharge: Home Anticipated DC Timeframe: Other
[2020-05-27 14:36] LABS: HEMATOCRIT 43.6 % (37.9-51.0); HEMOGLOBIN 14.7 g/dL (13.5-17.0); MEAN CORPUSCULAR HGB CONC 33.7 g/dL (32.0-36.0); MEAN CORPUSCULAR VOLUME 83 fl (80-97); PLATELET COUNT 362 10^3/uL (150-450); RED BLOOD COUNT 5.25 10^6/uL (4.35-5.55); RED CELL DISTRIBUTION WIDTH 16.8 % (11.5-14.0); WHITE BLOOD COUNT 8.9 10^3/uL (4.0-10.5)
[2020-05-27 14:57] LABS: ALBUMIN 2.4 g/dL (3.5-5.0); ALKALINE PHOSPHATASE 61 U/L (38-126); ANION GAP 5 (5-19); ASPARTATE AMINO TRANSFERASE 45 U/L (17-59); BILIRUBIN,DIRECT 0.1 mg/dL (0.0-0.4); BILIRUBIN,TOTAL 0.5 mg/dL (0.2-1.3); BLOOD UREA NITROGEN 22 mg/dL (7-20); CALCIUM 8.4 mg/dL (8.4-10.2); CARBON DIOXIDE 25 mmol/L (22-30); CHLORIDE 107 mmol/L (98-107); GLUCOSE 132 mg/dL (75-110); POTASSIUM 4.3 mmol/L (3.6-5.0); TOTAL PROTEIN 5.5 g/dL (6.3-8.2)
[2020-05-27 15:06] LABS: ABSOLUTE LYMPHOCYTES# (MANUAL) 0.2 10^3/uL (0.5-4.7); ABSOLUTE MONOCYTES # (MANUAL) 0.4 10^3/uL (0.1-1.4); ANISOCYTOSIS 1+; BASOPHILS % (MANUAL) 0 % (0-2); EOSINOPHILS % (MANUAL) 2 % (0-6); LYMPHOCYTES % (MANUAL) 2 % (13-45); MONOCYTES % (MANUAL) 4 % (3-13); PLATELET COMMENT ADEQUATE; PLATELET LARGE PRESENT; SEGMENTED NEUTROPHILS % (MAN) 92 % (42-78); TOTAL CELLS COUNTED 100
[2020-05-27 15:07] LABS: BURR CELLS SLIGHT; HYPOCHROMASIA SLIGHT; POIKILOCYTOSIS SLIGHT
[2020-05-27] MEDS: ACETAMINOPHEN 325 MG TABLET PO PRN (16:38)
[2020-05-27] MEDS: MELATONIN 5 MG TABLET PO SCH (21:12)
[2020-05-27] MEDS: AZITHROMYCIN 500 MG in DEXTROSE 5%-WATER 250 ML IV SCH (21:12)
[2020-05-28] MEDS: DEXTROSE 5%-1/2 NORMAL SALINE 1,000 ML IV PRN (04:13)
[2020-05-28 04:49] LABS: ABSOLUTE LYMPHOCYTES (AUTO) 0.5 10^3/uL (0.5-4.7); ABSOLUTE MONOCYTES (AUTO) 0.3 10^3/uL (0.1-1.4); ABSOLUTE NEUT (AUTO) 6.2 10^3/uL (1.7-8.2); BASOPHILS % (AUTO) 0.5 % (0-2); EOSINOPHILS % (AUTO) 0.1 % (0-6); HEMATOCRIT 44.7 % (37.9-51.0); HEMOGLOBIN 15.1 g/dL (13.5-17.0); MEAN CORPUSCULAR HEMOGLOBIN 27.6 pg (27.0-33.4); MEAN CORPUSCULAR HGB CONC 33.7 g/dL (32.0-36.0); MEAN CORPUSCULAR VOLUME 82 fl (80-97); MONOCYTES % (AUTO) 4.5 % (3-13); PLATELET COUNT 421 10^3/uL (150-450); RED BLOOD COUNT 5.47 10^6/uL (4.35-5.55); RED CELL DISTRIBUTION WIDTH 17.2 % (11.5-14.0); SEGMENTED NEUTROPHILS % (AUTO) 87.9 % (42-78); TOTAL CELLS COUNTED % (AUTO) 100 %
[2020-05-28 05:04] LABS: ALBUMIN 2.6 g/dL (3.5-5.0); ALKALINE PHOSPHATASE 68 U/L (38-126); ANION GAP 6 (5-19); ASPARTATE AMINO TRANSFERASE 50 U/L (17-59); BILIRUBIN,DIRECT 0.2 mg/dL (0.0-0.4); BILIRUBIN,TOTAL 0.6 mg/dL (0.2-1.3); BLOOD UREA NITROGEN 20 mg/dL (7-20); CALCIUM 8.8 mg/dL (8.4-10.2); CARBON DIOXIDE 28 mmol/L (22-30); CHLORIDE 103 mmol/L (98-107); GLUCOSE 112 mg/dL (75-110); POTASSIUM 4.4 mmol/L (3.6-5.0); TOTAL PROTEIN 5.8 g/dL (6.3-8.2)
[2020-05-28] MEDS: CHOLECALCIFEROL (D3) 1,000 UNIT (25 MCG) TABLET PO SCH (10:24)
[2020-05-28] MEDS: FINASTERIDE 5 MG TABLET PO SCH (10:24)
[2020-05-28] MEDS: ZINC SULFATE 220 MG CAPSULE PO SCH (10:25)
[2020-05-28] MEDS: FAMOTIDINE 20 MG TABLET PO SCH ×2 (10:25→21:24)
[2020-05-28] MEDS: AMLODIPINE BESYLATE 10 MG TABLET PO SCH (10:25)
[2020-05-28] MEDS: ASPIRIN 81 MG TABLET, ENT COATED PO SCH (10:25)
[2020-05-28] MEDS: ASCORBIC ACID 500 MG TABLET PO SCH ×2 (10:25→18:07)
[2020-05-28] MEDS: TAMSULOSIN HCL 0.4 MG CAP.SR.24H PO SCH (10:25)
[2020-05-28] MEDS: DEXAMETHASONE SOD PHOS INJ 10 MG/1 ML VIAL IV SCH (10:26)
[2020-05-28] MEDS: ENOXAPARIN SODIUM INJ 40 MG/0.4 ML DISP.SYRIN SUBCUT SCH (10:27)
[2020-05-28] MEDS: MEGESTROL ACETATE 20 MG TABLET PO SCH ×2 (10:28→21:24)
[2020-05-28] MEDS: REMDESIVIR 100 MG in NORMAL SALINE 250 ML IV SCH (11:31)
[2020-05-28] MEDS ORDERED: GLUCAGON,HUMAN RECOMB 1 MG INJ IM PRN (13:23)
[2020-05-28] MEDS ORDERED: DEXTROSE 50%-WATER 25 GM/50 ML DISP.SYRIN IV PRN ×2 (13:23)
[2020-05-28] MEDS ORDERED: DEXTROSE 40% GEL 15 GM TUBE PO PRN ×2 (13:23)
[2020-05-28] MEDS ORDERED: DEXTROSE 10%-WATER 1,000 ML IV PRN (13:23)
[2020-05-28 14:37] LABS: ARTERIAL BLOOD BASE EXCESS 0.7 mmol/L; ARTERIAL BLOOD H2CO3 0.97 mmol/L (1.05-1.35); ARTERIAL BLOOD HCO3 23.3 mmol/L (20-24); ARTERIAL BLOOD O2 SATURATION 82.6 % (94-98); ARTERIAL BLOOD PCO2 32.2 mmHg (35-45); ARTERIAL BLOOD PH 7.48 (7.35-7.45); ARTERIAL BLOOD PO2 42.8 mmHg (80-100); ARTERIAL BLOOD TOTAL CO2 24.3 mmol/L (23-27)
[2020-05-28 14:38] LABS: ARTERIAL BLOOD FIO2 100%
[2020-05-28] MEDS: INSULIN REG, HUMAN 100 UNIT/ML 3 ML VIAL (PYX) SUBCUT SCH ×2 (15:02→18:06)
--- NOTE | 2020-05-28 20:16 | PDOC PROGRESS REPORT ---
Subjective Date:: 05/28/20 Subjective:: He has profound hypoxemia, he continues to require supplemental oxygen to Oxymiz er, arterial blood gas on FiO2 100%, PO2 42.8, HCO3, 23.3, PCO2 32.2, pH 7.48, there is no hypercapnia, patient is alert, the criteria needed to have patient intubated is hypercapnia plus or minus obtundation. Patient has not been able to eat since admission, will initiate TPN once a PICC line is inserted. Reason For Visit: COVID PNEUMONIA, HTN Physical Exam Vital Signs: Temp Pulse Resp BP Pulse Ox 97.7 F 95 27 H 141/74 H 95 05/28/20 03:34 05/28/20 14:00 05/28/20 19:34 05/28/20 03:34 05/28/20 19:34 Intake & Output 05/27/20 05/28/20 05/29/20 06:59 06:59 06:59 Intake Total 740 2980 0 Output Total 425 1560 300 Balance 315 1420 -300 Weight 94 kg 97.5 kg General appearance: PRESENT: other - Patient is alert, laying on his side, on ox ygen Respiratory exam: PRESENT: rhonchi Cardiovascular exam: PRESENT: +S1, +S2 GI/Abdominal exam: PRESENT: soft Neurological exam: PRESENT: alert Results Laboratory Results: 05/28/20 04:04 05/28/20 04:04 05/28/20 05/28/20 05/28/20 04:04 04:04 13:46 WBC 7.0 RBC 5.47 Hgb 15.1 Hct 44.7 MCV 82 MCH 27.6 MCHC 33.7 RDW 17.2 H Plt Count 421 Seg Neutrophils % 87.9 H Carbonic Acid 0.97 L HCO3/H2CO3 Ratio 24:1 ABG pH 7.48 H ABG pCO2 32.2 L ABG pO2 42.8 L ABG HCO3 23.3 ABG O2 Saturation 82.6 L ABG Base Excess 0.7 FiO2 100% Sodium 136.9 L Potassium 4.4 Chloride 103 Carbon Dioxide 28 Anion Gap 6 BUN 20 Creatinine 0.78 Est GFR ( Amer) > 60 Glucose 112 H Calcium 8.8 Total Bilirubin 0.6 AST 50 Alkaline Phosphatase 68 Total Protein 5.8 L Albumin 2.6 L 05/22/20 16:22 Blood Blood Culture - Final NO GROWTH IN 5 DAYS 05/22/20 16:22 Troponin I 0.029 Impressions: Chest X-Ray 05/22/20 14:26 IMPRESSION: NO ACUTE RADIOGRAPHIC FINDING IN THE CHEST. Abdomen/Pelvis CT 05/22/20 17:23 IMPRESSION: Mild basilar atelectasis or infiltration, greater on the right. No acute abnormality is seen within the abdomen or pelvis. Additional, chronic-appearing findings are noted as above. TECHNICAL DOCUMENTATION: Quality ID # 436: Final reports with documentation of one or more dose reduction techniques (e.g., Automated exposure control, adjustment of the mA and/or kV according to patient size, use of iterative reconstruction technique) copyright 2011 [employer]- All Rights Reserved Chest CT 05/26/20 00:00 IMPRESSION: Diffuse bilateral ground-glass opacities consistent with either edema, atelectasis or pneumonia. Extensive centrilobular emphysematous changes. Probable underlying pulmonary fibrosis. Peripancreatic inflammatory changes suspicious for pancreatitis new from prior exam. Hyperattenuating lesion in the right kidney most likely hemorrhagic cyst. Assessment & Plan - Diagnosis (1) Acute hypoxemic respiratory failure Is this a current diagnosis for this admission?: Yes Plan: Continue oxygen supplementation (2) COVID-19 virus infection Is this a current diagnosis for this admission?: Yes Plan: Continue IV dexamethasone, IV antibiotic (3) Anorexia Is this a current diagnosis for this admission?: Yes Plan: TPN to be initiated once PICC line is placed (4) Pneumonia Qualifiers: Pneumonia type: due to unspecified organism Laterality: bilateral Lung l ocation: lower lobe of lung Qualified Code(s): J18.9 - Pneumonia, unspecified organism Is this a current diagnosis for this admission?: Yes (5) Chronic obstructive pulmonary disease (COPD) Qualifiers: COPD type: emphysema Emphysema type: centrilobular Qualified Code(s): J43.2 - Centrilobular emphysema Is this a current diagnosis for this admission?: Yes Plan: He has centrilobular emphysema, the dexamethasone may also help his COPD (6) Pancreatitis Qualifiers: Chronicity: acute Pancreatitis type: unspecified pancreatitis type Acute pancreatitis complication: unspecified Qualified Code(s): K85.90 - Acute pancreatitis without necrosis or infection, unspecified Is this a current diagnosis for this admission?: Yes - Time Time Spent with patient: 35 or more minutes Level of Care: IMCU Medications reviewed and adjusted accordingly: Yes Anticipated discharge: Home Anticipated DC Timeframe: Other
[2020-05-28] MEDS: MELATONIN 5 MG TABLET PO SCH (21:23)
[2020-05-28] MEDS: AZITHROMYCIN 500 MG in DEXTROSE 5%-WATER 250 ML IV SCH (21:24)
[2020-05-28 23:48] LABS: INTERNATIONAL RATION (INR) 1.09; PROTHROMBIN TIME 14.3 SEC (11.4-15.4)
[2020-05-28 23:57] LABS: HEMATOCRIT 45.3 % (37.9-51.0); HEMOGLOBIN 15.2 g/dL (13.5-17.0); MEAN CORPUSCULAR HEMOGLOBIN 27.4 pg (27.0-33.4); MEAN CORPUSCULAR HGB CONC 33.6 g/dL (32.0-36.0); MEAN CORPUSCULAR VOLUME 82 fl (80-97); PLATELET COUNT 437 10^3/uL (150-450); RED BLOOD COUNT 5.55 10^6/uL (4.35-5.55); RED CELL DISTRIBUTION WIDTH 16.7 % (11.5-14.0); WHITE BLOOD COUNT 7.3 10^3/uL (4.0-10.5)
[2020-05-29] MEDS: INSULIN REG, HUMAN 100 UNIT/ML 3 ML VIAL (PYX) SUBCUT SCH ×4 (06:36→18:34)
[2020-05-29 08:31] LABS: ALBUMIN 2.3 g/dL (3.5-5.0); ALKALINE PHOSPHATASE 65 U/L (38-126); ASPARTATE AMINO TRANSFERASE 41 U/L (17-59); BILIRUBIN,DIRECT 0.2 mg/dL (0.0-0.4); BILIRUBIN,TOTAL 0.6 mg/dL (0.2-1.3); BLOOD UREA NITROGEN 22 mg/dL (7-20); CALCIUM 8.5 mg/dL (8.4-10.2); GLUCOSE 101 mg/dL (75-110); PHOSPHORUS 3.5 mg/dL (2.5-4.5); POTASSIUM 3.8 mmol/L (3.6-5.0); TOTAL PROTEIN 5.3 g/dL (6.3-8.2)
[2020-05-29 08:36] LABS: ANION GAP 5 (5-19); CARBON DIOXIDE 25 mmol/L (22-30); CHLORIDE 106 mmol/L (98-107)
--- NOTE | 2020-05-29 09:43 | RADIOLOGY REPORT (SQ) ---
EXAM DESCRIPTION: CHEST SINGLE VIEW IMAGES COMPLETED DATE/TIME: 05/29/2020 9:22 am REASON FOR STUDY: picc placement COMPARISON: 05/22/2020 NUMBER OF VIEWS: One view. TECHNIQUE: Single frontal radiographic image of the chest acquired. LIMITATIONS: None. FINDINGS: LUNGS AND PLEURA: Patchy bilateral ground-glass attenuation without focal consolidation. No large effusions. MEDIASTINUM AND HEART: Stable heart size and mediastinal structures. SUPPORT DEVICES: Right-sided PICC tip overlying SVC. BONY STRUCTURES: No acute findings. HARDWARE: None. OTHER: No other significant finding. IMPRESSION: Good position of PICC line. Reading location - IP/workstation name: [email or web address]
--- NOTE | 2020-05-29 10:36 | RADIOLOGY REPORT (SQ) ---
EXAM DESCRIPTION: PICC INSERTION; U/S GUIDE FOR VASCULAR ACCESS; FLUORO/CV PLACEMENT IMAGES COMPLETED DATE/TIME: 05/29/2020 10:25 am REASON FOR STUDY: iv access; PICC COMPARISON: None. FLUORO TIME: 0 1 images saved to PACS. LIMITATIONS: None. PROCEDURE: After obtaining informed consent, the patient was brought to the special procedures suite and was placed supine on the fluoroscopy table. The patient was prepped and draped in the usual gretel rile fashion . Ultrasound evaluation of potential access sites were performed. After successfully identifying a alberto nt right basilic, the percutaneous access site was anesthetized with 1 percent lidocaine. Real time u ltrasound guidance was used to access the vein using a 7 centimeter 21 gauge micropuncture needle under sonographic guidance. A .018 guidewire was advan thomas centrally. A peel-away sheath was advanced over the wire. The wire was used to measure appropria te catheter length and was removed. A dual lumen Morpheus PICC line was selected and the trimmed to the appropriate length of 41 centimeters. The PICC line wire were advanced through the sheath. The sheath was peeled leaving the tip of the catheter in SVC . The catheter was noted to flushed and aspi rated well. It was packed with heparinized saline and secured in place using a stat lock device. The patient tolerated the procedure well and left the department in satisfactory condition. Ultrasound images of the access vein and a spot film documenting final catheter position are stored in the PACs system. IMPRESSION: Successful placement of upper extremity PICC line using ultrasound guidance. COMMENT: Patient medication list reviewed: Yes-Quality ID# 130:Eligible professional attests to docu menting in the medical record they obtained, updated, or reviewed the patient's current medications. . Quality ID #76: The patient was prepped and draped using maximum sterile barrier technique including cap, mask, sterile gown, sterile gloves, a large sterile sheet, hand hygiene, and 2% Chlorhexidine fo r cutaneous antisepsis. When ultrasound is used, sterile ultrasound techniques are followed requiring sterile gel and sterile probes. Quality ID 145: Final reports for procedures using fluoroscopy that document radiation exposure raffaele maisha, or exposure time and number of fluorographic images (if radiation exposure indices are not avail able) TECHNICAL DOCUMENTATION: JOB ID: [id number] 2010 [employer]- All Rights Reserved rev-09/12 Reading location - IP/workstation name: [email or web address]
[2020-05-29] MEDS: FAMOTIDINE 20 MG TABLET PO SCH (10:43)
[2020-05-29] MEDS: CHOLECALCIFEROL (D3) 1,000 UNIT (25 MCG) TABLET PO SCH (10:43)
[2020-05-29] MEDS: ASPIRIN 81 MG TABLET, ENT COATED PO SCH (10:44)
[2020-05-29] MEDS: ASCORBIC ACID 500 MG TABLET PO SCH ×2 (10:44→17:47)
[2020-05-29] MEDS: ZINC SULFATE 220 MG CAPSULE PO SCH (10:44)
[2020-05-29] MEDS: AMLODIPINE BESYLATE 10 MG TABLET PO SCH (10:44)
[2020-05-29] MEDS: TAMSULOSIN HCL 0.4 MG CAP.SR.24H PO SCH (10:44)
[2020-05-29] MEDS: FINASTERIDE 5 MG TABLET PO SCH (10:44)
[2020-05-29] MEDS: MEGESTROL ACETATE 20 MG TABLET PO SCH (10:45)
[2020-05-29] MEDS: DEXAMETHASONE SOD PHOS INJ 10 MG/1 ML VIAL IV SCH (10:45)
[2020-05-29] MEDS ORDERED: NORMAL SALINE 10 ML SDV (AFTER EACH USE) IV PRN (16:00)
--- NOTE | 2020-05-29 16:59 | PDOC PROGRESS REPORT ---
Subjective Date:: 05/29/20 Subjective:: Patient seen by the bedside, he continued to require noninvasive positive pressure ventilation, BiPAP, he laid on his side, he had a PICC line today, will start TPN today Reason For Visit: COVID PNEUMONIA, HTN Physical Exam Vital Signs: Temp Pulse Resp BP Pulse Ox 97.6 F 91 35 H 110/58 L 95 05/29/20 08:42 05/29/20 14:00 05/29/20 13:51 05/29/20 08:42 05/29/20 13:51 Intake & Output 05/28/20 05/29/20 05/30/20 06:59 06:59 06:59 Intake Total 2980 1350 Output Total 1560 600 Balance 1420 750 Weight 97.5 kg 92.5 kg General appearance: PRESENT: no acute distress Eye exam: PRESENT: PERRLA Respiratory exam: PRESENT: decreased breath sounds, rhonchi Cardiovascular exam: PRESENT: +S1, +S2 GI/Abdominal exam: PRESENT: soft Neurological exam: PRESENT: alert, CN II-XII grossly intact Results Laboratory Results: 05/28/20 23:29 05/29/20 07:55 05/28/20 05/28/20 05/29/20 23:29 23:29 07:55 WBC 7.3 RBC 5.55 Hgb 15.2 Hct 45.3 MCV 82 MCH 27.4 MCHC 33.6 RDW 16.7 H Plt Count 437 Sodium 136.4 L Potassium 3.8 Chloride 106 Carbon Dioxide 25 Anion Gap 5 BUN 22 H Creatinine 0.64 Est GFR ( Amer) > 60 Glucose 101 Calcium 8.5 Phosphorus 3.5 Magnesium 1.9 Total Bilirubin 0.6 AST 41 Alkaline Phosphatase 65 Total Protein 5.3 L Albumin 2.3 L Prealbumin 12.0 L Triglycerides 67 05/22/20 16:22 Troponin I 0.029 Impressions: Abdomen/Pelvis CT 05/22/20 17:23 IMPRESSION: Mild basilar atelectasis or infiltration, greater on the right. No acute abnormality is seen within the abdomen or pelvis. Additional, chronic-appearing findings are noted as above. TECHNICAL DOCUMENTATION: Quality ID # 436: Final reports with documentation of one or more dose reduction techniques (e.g., Automated exposure control, adjustment of the mA and/or kV according to patient size, use of iterative reconstruction technique) copyright 2011 [employer]- All Rights Reserved Chest CT 05/26/20 00:00 IMPRESSION: Diffuse bilateral ground-glass opacities consistent with either edema, atelectasis or pneumonia. Extensive centrilobular emphysematous changes. Probable underlying pulmonary fibrosis. Peripancreatic inflammatory changes suspicious for pancreatitis new from prior exam. Hyperattenuating lesion in the right kidney most likely hemorrhagic cyst. Guidance Fluoroscopy 05/29/20 00:00 IMPRESSION: Successful placement of upper extremity PICC line using ultrasound guidance. Interventional Vascular Procedure 05/29/20 00:00 IMPRESSION: Successful placement of upper extremity PICC line using ultrasound guidance. PICC Line Insertion 05/29/20 00:00 IMPRESSION: Successful placement of upper extremity PICC line using ultrasound guidance. Chest X-Ray 05/29/20 09:04 IMPRESSION: Good position of PICC line. Assessment & Plan - Diagnosis (1) Acute hypoxemic respiratory failure Is this a current diagnosis for this admission?: Yes Plan: Patient will continue BiPAP (2) COVID-19 virus infection Is this a current diagnosis for this admission?: Yes Plan: Continue IV dexamethasone, IV antibiotic (3) Anorexia Is this a current diagnosis for this admission?: Yes Plan: Start TPN (4) Pneumonia Qualifiers: Pneumonia type: due to unspecified organism Laterality: bilateral Lung location: lower lobe of lung Qualified Code(s): J18.9 - Pneumonia, unspecified organism Is this a current diagnosis for this admission?: Yes (5) Chronic obstructive pulmonary disease (COPD) Qualifiers: COPD type: emphysema Emphysema type: centrilobular Qualified Code(s): J43.2 - Centrilobular emphysema Is this a current diagnosis for this admission?: Yes (6) Pancreatitis Qualifiers: Chronicity: acute Pancreatitis type: unspecified pancreatitis type Acute pancreatitis complication: unspecified Qualified Code(s): K85.90 - Acute pancreatitis without necrosis or infection, unspecified Is this a current diagnosis for this admission?: Yes - Time Time Spent with patient: 35 or more minutes Level of Care: IMCU Medications reviewed and adjusted accordingly: Yes Anticipated discharge: Home Anticipated DC Timeframe: Other
[2020-05-29] MEDS: AMINO ACIDS 5 %/DEXTROSE 20 % 1,000 ML IV PRN (17:47)
[2020-05-29] MEDS: AZITHROMYCIN 500 MG in DEXTROSE 5%-WATER 250 ML IV SCH (21:11)
[2020-05-29] MEDS: MELATONIN 5 MG TABLET PO SCH (21:11)
[2020-05-29] MEDS: NORMAL SALINE 10 ML SDV (SCHEDULED) IV SCH (21:12)
[2020-05-30] MEDS: INSULIN REG, HUMAN 100 UNIT/ML 3 ML VIAL (PYX) SUBCUT SCH ×4 (02:00→17:33)
[2020-05-30] MEDS: ASPIRIN 81 MG TABLET, ENT COATED PO SCH (10:29)
[2020-05-30] MEDS: DEXAMETHASONE SOD PHOS INJ 10 MG/1 ML VIAL IV SCH (10:29)
[2020-05-30] MEDS: ZINC SULFATE 220 MG CAPSULE PO SCH (10:29)
[2020-05-30] MEDS: CHOLECALCIFEROL (D3) 1,000 UNIT (25 MCG) TABLET PO SCH (10:29)
[2020-05-30] MEDS: ASCORBIC ACID 500 MG TABLET PO SCH ×2 (10:29→17:05)
[2020-05-30] MEDS: TAMSULOSIN HCL 0.4 MG CAP.SR.24H PO SCH (10:29)
[2020-05-30] MEDS: AMLODIPINE BESYLATE 10 MG TABLET PO SCH (10:29)
[2020-05-30] MEDS: NORMAL SALINE 10 ML SDV (SCHEDULED) IV SCH ×2 (10:30→21:24)
[2020-05-30] MEDS: FINASTERIDE 5 MG TABLET PO SCH (10:30)
[2020-05-30] MEDS: ENOXAPARIN SODIUM INJ 40 MG/0.4 ML DISP.SYRIN SUBCUT SCH (10:31)
[2020-05-30 13:04] LABS: ALBUMIN 2.3 g/dL (3.5-5.0); ALKALINE PHOSPHATASE 70 U/L (38-126); ASPARTATE AMINO TRANSFERASE 36 U/L (17-59); BILIRUBIN,DIRECT 0.2 mg/dL (0.0-0.4); BILIRUBIN,TOTAL 0.9 mg/dL (0.2-1.3); BLOOD UREA NITROGEN 21 mg/dL (7-20); CALCIUM 8.6 mg/dL (8.4-10.2); GLUCOSE 351 mg/dL (75-110); PHOSPHORUS 2.6 mg/dL (2.5-4.5); POTASSIUM 4.4 mmol/L (3.6-5.0); TOTAL PROTEIN 5.4 g/dL (6.3-8.2)
[2020-05-30 13:09] LABS: ANION GAP 6 (5-19); CARBON DIOXIDE 26 mmol/L (22-30); CHLORIDE 103 mmol/L (98-107)
[2020-05-30 13:11] LABS: PREALBUMIN 9.9 mg/dL (17.6-36.0)
--- NOTE | 2020-05-30 16:45 | PDOC PROGRESS REPORT ---
Subjective Date:: 05/30/20 Subjective:: Patient is seen by the bedside, he virtually depends on the noninvasive positive pressure ventilation BiPAP he is in semiprone position, patient is not able to eat by mouth because it cannot come off the BiPAP ,a PICC line was placed yesterday TPN initiated today to provide nutrition. He was admitted for COVID- positive test (U07.1, COVID-19) with Acute Pneumonia (J12.89, Other viral pneumonia)(If respiratory failure or sepsis present, add as separate assessment) Complicated with severe hypoxemic respiratory failure. Reason For Visit: COVID PNEUMONIA, HTN Physical Exam Vital Signs: Temp Pulse Resp BP Pulse Ox 98.6 F 115 H 34 H 112/70 94 05/30/20 16:06 05/30/20 16:06 05/30/20 16:08 05/30/20 16:06 05/30/20 16:08 Intake & Output 05/29/20 05/30/20 05/31/20 06:59 06:59 06:59 Intake Total 1350 370 Output Total 600 875 Balance 750 -505 Weight 92.5 kg 91.1 kg General appearance: PRESENT: other - Patient on BiPAP Eye exam: PRESENT: PERRLA Respiratory exam: PRESENT: decreased breath sounds Cardiovascular exam: PRESENT: +S1, +S2 GI/Abdominal exam: PRESENT: soft Neurological exam: PRESENT: alert Results Laboratory Results: 05/28/20 23:29 05/30/20 12:08 05/30/20 05/30/20 07:00 12:08 Sodium Cancelled 134.9 L Potassium Cancelled 4.4 Chloride Cancelled 103 Carbon Dioxide Cancelled 26 Anion Gap Cancelled 6 BUN Cancelled 21 H Creatinine Cancelled 0.73 Est GFR ( Amer) Cancelled > 60 Est GFR (Non-Af Amer) Cancelled Glucose Cancelled 351 H Calcium Cancelled 8.6 Phosphorus Cancelled 2.6 Total Bilirubin Cancelled 0.9 AST Cancelled 36 Alkaline Phosphatase Cancelled 70 Total Protein Cancelled 5.4 L Albumin Cancelled 2.3 L Prealbumin Cancelled 9.9 L 05/22/20 16:22 Troponin I 0.029 Impressions: Abdomen/Pelvis CT 05/22/20 17:23 IMPRESSION: Mild basilar atelectasis or infiltration, greater on the right. No acute abnormality is seen within the abdomen or pelvis. Additional, chronic-appearing findings are noted as above. TECHNICAL DOCUMENTATION: Quality ID # 436: Final reports with documentation of one or more dose reduction techniques (e.g., Automated exposure control, adjustment of the mA and/or kV according to patient size, use of iterative reconstruction technique) copyright 2011 [employer]- All Rights Reserved Chest CT 05/26/20 00:00 IMPRESSION: Diffuse bilateral ground-glass opacities consistent with either edema, atelectasis or pneumonia. Extensive centrilobular emphysematous changes. Probable underlying pulmonary fibrosis. Peripancreatic inflammatory changes suspicious for pancreatitis new from prior exam. Hyperattenuating lesion in the right kidney most likely hemorrhagic cyst. Guidance Fluoroscopy 05/29/20 00:00 IMPRESSION: Successful placement of upper extremity PICC line using ultrasound guidance. Interventional Vascular Procedure 05/29/20 00:00 IMPRESSION: Successful placement of upper extremity PICC line using ultrasound guidance. PICC Line Insertion 05/29/20 00:00 IMPRESSION: Successful placement of upper extremity PICC line using ultrasound guidance. Chest X-Ray 05/29/20 09:04 IMPRESSION: Good position of PICC line. Assessment & Plan - Diagnosis (1) Acute hypoxemic respiratory failure Is this a current diagnosis for this admission?: Yes Plan: Patient continues to require BiPAP (2) COVID-19 virus infection Is this a current diagnosis for this admission?: Yes Plan: Continue IV dexamethasone, IV antibiotic (3) Anorexia Is this a current diagnosis for this admission?: Yes Plan: Patient on TPN (4) Pneumonia Qualifiers: Pneumonia type: due to unspecified organism Laterality: bilateral Lung location: lower lobe of lung Qualified Code(s): J18.9 - Pneumonia, unspecified organism Is this a current diagnosis for this admission?: Yes (5) Chronic obstructive pulmonary disease (COPD) Qualifiers: COPD type: emphysema Emphysema type: centrilobular Qualified Code(s): J43.2 - Centrilobular emphysema Is this a current diagnosis for this admission?: Yes Plan: He has underlining chronic obstructive lung disease (6) Pancreatitis Qualifiers: Chronicity: acute Pancreatitis type: unspecified pancreatitis type Acute pancreatitis complication: unspecified Qualified Code(s): K85.90 - Acute pancr eatitis without necrosis or infection, unspecified Is this a current diagnosis for this admission?: Yes - Time Time Spent with patient: 35 or more minutes Level of Care: IMCU Medications reviewed and adjusted accordingly: Yes Anticipated discharge: Home Anticipated DC Timeframe: within 72 hours
[2020-05-30] MEDS: AMINO ACIDS 5 %/DEXTROSE 20 % 1,000 ML IV PRN (17:04)
[2020-05-30] MEDS: ACETAMINOPHEN 325 MG TABLET PO PRN (17:15)
[2020-05-30] MEDS: MELATONIN 5 MG TABLET PO SCH (21:24)
[2020-05-31 06:38] LABS: PROTHROMBIN TIME 19.2 SEC (11.4-15.4)
[2020-05-31] MEDS: INSULIN REG, HUMAN 100 UNIT/ML 3 ML VIAL (PYX) SUBCUT SCH ×4 (10:09→18:30)
[2020-05-31] MEDS: TAMSULOSIN HCL 0.4 MG CAP.SR.24H PO SCH (10:19)
[2020-05-31] MEDS: DEXAMETHASONE SOD PHOS INJ 10 MG/1 ML VIAL IV SCH (10:19)
[2020-05-31] MEDS: AMLODIPINE BESYLATE 10 MG TABLET PO SCH (10:19)
[2020-05-31] MEDS: ASPIRIN 81 MG TABLET, ENT COATED PO SCH (10:19)
[2020-05-31] MEDS: ASCORBIC ACID 500 MG TABLET PO SCH ×2 (10:20→18:31)
[2020-05-31] MEDS: FINASTERIDE 5 MG TABLET PO SCH (10:20)
[2020-05-31] MEDS: CHOLECALCIFEROL (D3) 1,000 UNIT (25 MCG) TABLET PO SCH (10:20)
[2020-05-31] MEDS: ZINC SULFATE 220 MG CAPSULE PO SCH (10:21)
[2020-05-31] MEDS: NORMAL SALINE 10 ML SDV (SCHEDULED) IV SCH ×2 (10:22→21:30)
[2020-05-31] MEDS: ENOXAPARIN SODIUM INJ 40 MG/0.4 ML DISP.SYRIN SUBCUT SCH (10:22)
[2020-05-31] MEDS: FAT EMULSIONS 250 ML IV SCH (10:22)
[2020-05-31 10:32] LABS: ALBUMIN 2.7 g/dL (3.5-5.0); ALKALINE PHOSPHATASE 72 U/L (38-126); ANION GAP 7 (5-19); ASPARTATE AMINO TRANSFERASE 30 U/L (17-59); BILIRUBIN,DIRECT 0.3 mg/dL (0.0-0.4); BILIRUBIN,TOTAL 0.7 mg/dL (0.2-1.3); BLOOD UREA NITROGEN 25 mg/dL (7-20); CALCIUM 8.8 mg/dL (8.4-10.2); CARBON DIOXIDE 25 mmol/L (22-30); CHLORIDE 106 mmol/L (98-107); GLUCOSE 128 mg/dL (75-110); PHOSPHORUS 2.8 mg/dL (2.5-4.5); POTASSIUM 4.2 mmol/L (3.6-5.0); TOTAL PROTEIN 6.1 g/dL (6.3-8.2); TRIGLYCERIDES 44 mg/dL (<150)
[2020-05-31 10:45] LABS: PREALBUMIN 8.7 mg/dL (17.6-36.0)
[2020-05-31 13:29] LABS: HEMATOCRIT 41.7 % (37.9-51.0); HEMOGLOBIN 13.8 g/dL (13.5-17.0); MEAN CORPUSCULAR HGB CONC 33.1 g/dL (32.0-36.0); MEAN CORPUSCULAR VOLUME 82 fl (80-97); PLATELET COUNT 263 10^3/uL (150-450); RED BLOOD COUNT 5.11 10^6/uL (4.35-5.55); RED CELL DISTRIBUTION WIDTH 17.1 % (11.5-14.0)
[2020-05-31 13:30] LABS: WHITE BLOOD COUNT 15.7 10^3/uL (4.0-10.5)
[2020-05-31] MEDS: AMINO ACIDS 5 %/DEXTROSE 20 % 1,000 ML IV PRN (16:21)
--- NOTE | 2020-05-31 20:09 | PDOC PROGRESS REPORT ---
Subjective Date:: 05/31/20 Subjective:: Patient is seen by the bedside, he virtually depends on the noninvasive positive pressure ventilation BiPAP he is in semiprone position, patient is not able to eat by mouth because it cannot come off the BiPAP ,a PICC line was placed yesterday TPN initiated today to provide nutrition. He was admitted for COVID- positive test (U07.1, COVID-19) with Acute Pneumonia (J12.89, Other viral pneumonia)(If respiratory failure or sepsis present, add as separate assessment) Complicated with severe hypoxemic respiratory failure. 05/31/2020 Patient continues to require BiPAP, FiO2 100%, oxygen saturation is in the early 90s,Patient responds to verbal command, on TPN Reason For Visit: COVID PNEUMONIA, HTN Physical Exam Vital Signs: Temp Pulse Resp BP Pulse Ox 97.4 F 102 H 29 H 120/65 98 05/31/20 16:47 05/31/20 16:47 05/31/20 19:30 05/31/20 16:47 05/31/20 19:30 Intake & Output 05/30/20 05/31/20 06/01/20 06:59 06:59 06:59 Intake Total 370 0 250 Output Total 875 750 300 Balance -505 -750 -50 Weight 91.1 kg 89 kg General appearance: PRESENT: other - Patient is on BiPAP machine, is alert ,responsive Eye exam: PRESENT: PERRLA Respiratory exam: PRESENT: rhonchi Cardiovascular exam: PRESENT: +S1, +S2 GI/Abdominal exam: PRESENT: soft Neurological exam: PRESENT: alert Results Laboratory Results: 05/31/20 13:21 05/31/20 09:50 05/31/20 05/31/20 05/31/20 06:00 06:00 07:24 WBC Cancelled RBC Cancelled Hgb Cancelled Hct Cancelled MCV Cancelled MCH Cancelled MCHC Cancelled RDW Cancelled Plt Count Cancelled Sodium Cancelled Cancelled Potassium Cancelled Cancelled Chloride Cancelled Cancelled Carbon Dioxide Cancelled Cancelled Anion Gap Cancelled Cancelled BUN Cancelled Cancelled Creatinine Cancelled Cancelled Est GFR ( Amer) Cancelled Cancelled Est GFR (Non-Af Amer) Cancelled Cancelled Glucose Cancelled Cancelled Calcium Cancelled Cancelled Phosphorus Cancelled Cancelled Magnesium Cancelled Cancelled Total Bilirubin Cancelled Cancelled AST Cancelled Cancelled Alkaline Phosphatase Cancelled Cancelled Total Protein Cancelled Cancelled Albumin Cancelled Cancelled Prealbumin Cancelled Cancelled Triglycerides Cancelled Cancelled 05/31/20 05/31/20 05/31/20 08:25 09:50 13:21 WBC 15.7 H D RBC 5.11 Hgb 13.8 Hct 41.7 MCV 82 MCH 27.0 MCHC 33.1 RDW 17.1 H Plt Count 263 Sodium Cancelled 138.3 Potassium Cancelled 4.2 Chloride Cancelled 106 Carbon Dioxide Cancelled 25 Anion Gap Cancelled 7 BUN Cancelled 25 H Creatinine Cancelled 0.62 Est GFR ( Amer) Cancelled > 60 Est GFR (Non-Af Amer) Cancelled Glucose Cancelled 128 H Calcium Cancelled 8.8 Phosphorus Cancelled 2.8 Magnesium Cancelled 2.3 Total Bilirubin Cancelled 0.7 AST Cancelled 30 Alkaline Phosphatase Cancelled 72 Total Protein Cancelled 6.1 L Albumin Cancelled 2.7 L Prealbumin Cancelled 8.7 L Triglycerides Cancelled 44 05/22/20 16:22 Troponin I 0.029 Impressions: Abdomen/Pelvis CT 05/22/20 17:23 IMPRESSION: Mild basilar atelectasis or infiltration, greater on the right. No acute abnormality is seen within the abdomen or pelvis. Additional, chronic-appearing findings are noted as above. TECHNICAL DOCUMENTATION: Quality ID # 436: Final reports with documentation of one or more dose reduction techniques (e.g., Automated exposure control, adjustment of the mA and/or kV according to patient size, use of iterative reconstruction technique) copyright 2011 [employer]- All Rights Reserved Chest CT 05/26/20 00:00 IMPRESSION: Diffuse bilateral ground-glass opacities consistent with either edema, atelectasis or pneumonia. Extensive centrilobular emphysematous changes. Probable underlying pulmonary fibrosis. Peripancreatic inflammatory changes suspicious for pancreatitis new from prior exam. Hyperattenuating lesion in the right kidney most likely hemorrhagic cyst. Guidance Fluoroscopy 05/29/20 00:00 IMPRESSION: Successful placement of upper extremity PICC line using ultrasound guidance. Interventional Vascular Procedure 05/29/20 00:00 IMPRESSION: Successful placement of upper extremity PICC line using ultrasound guidance. PICC Line Insertion 05/29/20 00:00 IMPRESSION: Successful placement of upper extremity PICC line using ultrasound guidance. Chest X-Ray 05/29/20 09:04 IMPRESSION: Good position of PICC line. Assessment & Plan - Diagnosis (1) Acute hypoxemic respiratory failure Is this a current diagnosis for this admission?: Yes Plan: Continue noninvasive positive pressure ventilation, BiPAP (2) COVID-19 virus infection Is this a current diagnosis for this admission?: Yes Plan: Continue IV dexamethasone, IV antibiotic (3) Anorexia Is this a current diagnosis for this admission?: Yes Plan: Patient on TPN (4) Pneumonia Qualifiers: Pneumonia type: due to unspecified organism Laterality: bilateral Lung location: lower lobe of lung Qualified Code(s): J18.9 - Pneumonia, unspecified organism Is this a current diagnosis for this admission?: Yes (5) Chronic obstructive pulmonary disease (COPD) Qualifiers: COPD type: emphysema Emphysema type: centrilobular Qualified Code(s): J43.2 - Centrilobular emphysema Is this a current diagnosis for this admission?: Yes Plan: He has underlining chronic obstructive lung disease (6) Pancreatitis Qualifiers: Chronicity: acute Pancreatitis type: unspecified pancreatitis type Acute pancreatitis complication: unspecified Qualified Code(s): K85.90 - Acute pancreatitis without necrosis or infection, unspecified Is this a current diagnosis for this admission?: Yes - Time Time Spent with patient: 35 or more minutes Level of Care: IMCU Medications reviewed and adjusted accordingly: Yes Anticipated discharge: Home Anticipated DC Timeframe: Other
[2020-05-31] MEDS: MELATONIN 5 MG TABLET PO SCH (21:28)
--- NOTE | 2020-05-31 21:37 | RADIOLOGY REPORT (SQ) ---
EXAM DESCRIPTION: Site: CHEST SINGLE VIEW RP: XR CHEST 1 VIEW CLINICAL HISTORY: 84 years Male; pneumonian FINDINGS: Since 05/29/2020, right PICC line remains in place, tip in the SVC. Right upper lobe infiltrate is unchanged. There is slightly increased infiltrate in the right middle/lower lobes. Left lung is unchanged. No mediastinal shift. IMPRESSION: Slightly increased right middle lobe and/or right lower lobe infiltrate
[2020-06-01] MEDS: INSULIN REG, HUMAN 100 UNIT/ML 3 ML VIAL (PYX) SUBCUT SCH ×4 (01:09→19:01)
[2020-06-01 08:45] LABS: ARTERIAL BLOOD BASE EXCESS -1.2 mmol/L; ARTERIAL BLOOD FIO2 100%; ARTERIAL BLOOD H2CO3 1.17 mmol/L (1.05-1.35); ARTERIAL BLOOD HCO3 23.4 mmol/L (20-24); ARTERIAL BLOOD O2 SATURATION 79.2 % (94-98); ARTERIAL BLOOD PCO2 38.9 mmHg (35-45); ARTERIAL BLOOD PO2 43.3 mmHg (80-100); ARTERIAL BLOOD TOTAL CO2 24.6 mmol/L (23-27)
[2020-06-01] MEDS: IPRATROPIUM/ALBUTEROL 0.5-2.5 MG/3 ML AMPUL NEB PRN ×2 (08:50→21:15)
[2020-06-01] MEDS ORDERED: MORPHINE SULFATE 10 MG/ML INJ ONE ×2 (08:59→09:06)
[2020-06-01] MEDS ORDERED: FUROSEMIDE INJ/PF 20 MG/2 ML SDV IV ONE (09:02)
[2020-06-01] MEDS ORDERED: FUROSEMIDE INJ/PF 20 MG/2 ML SDV ONE (09:03)
[2020-06-01] MEDS ORDERED: METHYLPREDNISOLONE INJ 125 MG/2 ML SDV ONE (09:21)
[2020-06-01] MEDS ORDERED: METOPROLOL TARTRATE PF/INJ 5 MG/5 ML SDV IV ONE ×3 (09:25→10:45)
[2020-06-01 09:28] LABS: HEMATOCRIT 43.5 % (37.9-51.0); HEMOGLOBIN 14.5 g/dL (13.5-17.0); MEAN CORPUSCULAR HEMOGLOBIN 27.3 pg (27.0-33.4); MEAN CORPUSCULAR HGB CONC 33.3 g/dL (32.0-36.0); MEAN CORPUSCULAR VOLUME 82 fl (80-97); PLATELET COUNT 310 10^3/uL (150-450); WHITE BLOOD COUNT 11.8 10^3/uL (4.0-10.5)
[2020-06-01 09:48] LABS: ABSOLUTE LYMPHOCYTES# (MANUAL) 0.8 10^3/uL (0.5-4.7); ABSOLUTE MONOCYTES # (MANUAL) 0.8 10^3/uL (0.1-1.4); BASOPHILS % (MANUAL) 0 % (0-2); EOSINOPHILS % (MANUAL) 0 % (0-6); LYMPHOCYTES % (MANUAL) 7 % (13-45); MONOCYTES % (MANUAL) 7 % (3-13); SEGMENTED NEUTROPHILS % (MAN) 86 % (42-78); TOTAL CELLS COUNTED 100
[2020-06-01 09:49] LABS: ANISOCYTOSIS 1+; BURR CELLS SLIGHT; OVALOCYTES SLIGHT; PLATELET COMMENT ADEQUATE; TOXIC VACUOLATION PRESENT
[2020-06-01 09:54] LABS: ALBUMIN 2.5 g/dL (3.5-5.0); ALKALINE PHOSPHATASE 101 U/L (38-126); ANION GAP 10 (5-19); ASPARTATE AMINO TRANSFERASE 38 U/L (17-59); BILIRUBIN,DIRECT 0.5 mg/dL (0.0-0.4); BILIRUBIN,TOTAL 0.9 mg/dL (0.2-1.3); BLOOD UREA NITROGEN 26 mg/dL (7-20); CALCIUM 8.7 mg/dL (8.4-10.2); CARBON DIOXIDE 21 mmol/L (22-30); CHLORIDE 108 mmol/L (98-107); GLUCOSE 155 mg/dL (75-110); POTASSIUM 4.3 mmol/L (3.6-5.0); TOTAL PROTEIN 6.1 g/dL (6.3-8.2)
--- NOTE | 2020-06-01 09:54 | RADIOLOGY REPORT (SQ) ---
EXAM DESCRIPTION: CHEST SINGLE VIEW IMAGES COMPLETED DATE/TIME: 06/01/2020 9:46 am REASON FOR STUDY: hypoxemia COMPARISON: 05/31/2020. EXAM PARAMETERS: NUMBER OF VIEWS: One view. TECHNIQUE: Single frontal radiographic view of the chest acquired. RADIATION DOSE: NA LIMITATIONS: None. FINDINGS: LUNGS AND PLEURA: Diffuse bilateral airspace disease. No significant interval change. MEDIASTINUM AND HILAR STRUCTURES: No masses. Contour normal. HEART AND VASCULAR STRUCTURES: Heart normal in size. Normal vasculature. BONES: No acute findings. HARDWARE: PICC line. OTHER: No other significant finding. IMPRESSION: DIFFUSE BILATERAL AIRSPACE DISEASE. NO SIGNIFICANT INTERVAL CHANGE. TECHNICAL DOCUMENTATION: JOB ID: [id number] 2010 [employer]- All Rights Reserved Reading location - IP/workstation name: [email or web address]
[2020-06-01] MEDS ORDERED: DILTIAZEM HCL/D5W 125 MG/125 ML RTUINJ IV ONE (10:06)
[2020-06-01] MEDS ORDERED: METHYLPREDNISOLONE INJ 125 MG/2 ML SDV IV ONE (10:45)
[2020-06-01] MEDS ORDERED: METOPROLOL TARTRATE PF/INJ 5 MG/5 ML SDV IV SCH (10:45)
[2020-06-01] MEDS ORDERED: MORPHINE SULFATE 10 MG/ML INJ IV ONE ×2 (11:00)
[2020-06-01] MEDS: DILTIAZEM HCL/D5W 125 MG/125 ML RTUINJ IV PRN (11:40)
[2020-06-01] MEDS: ZINC SULFATE 220 MG CAPSULE PO SCH (11:53)
[2020-06-01] MEDS: ASCORBIC ACID 500 MG TABLET PO SCH ×2 (11:56→18:22)
[2020-06-01] MEDS: FINASTERIDE 5 MG TABLET PO SCH (11:56)
[2020-06-01] MEDS: CHOLECALCIFEROL (D3) 1,000 UNIT (25 MCG) TABLET PO SCH (11:56)
[2020-06-01] MEDS: ASPIRIN 81 MG TABLET, ENT COATED PO SCH (11:57)
[2020-06-01] MEDS: TAMSULOSIN HCL 0.4 MG CAP.SR.24H PO SCH (11:57)
[2020-06-01] MEDS: AMLODIPINE BESYLATE 10 MG TABLET PO SCH (11:57)
[2020-06-01] MEDS: NORMAL SALINE 10 ML SDV (SCHEDULED) IV SCH ×2 (11:58→21:38)
[2020-06-01] MEDS: DEXAMETHASONE SOD PHOS INJ 10 MG/1 ML VIAL IV SCH ×2 (11:59→16:07)
[2020-06-01] MEDS: ENOXAPARIN SODIUM INJ 40 MG/0.4 ML DISP.SYRIN SUBCUT SCH (12:00)
[2020-06-01] MEDS ORDERED: HEPARIN SOD (PORCINE) 1,000 UNIT/ML 10 ML VIAL IV ONE (13:08)
--- NOTE | 2020-06-01 13:14 | CRITICAL CARE ADMISSION REPORT ---
HPI Date:: 06/01/20 Time:: 12:43 Reason for ICU Reason:: Acute hypoxemic respiratory failure; COVID-19 pneumonia; atrial fibrillation with rapid ventricular response Admission Date/Time & PCP: Admission Date/Time: 05/23/20 00:37 Primary Care Provider: AMANDA HERNANDEZ MD HPI: This obese 84-year-old -[place] male is seen in consultation at the request of Dr. Hernandez for recommendations on further evaluation and management of hypoxia. In fact, rapid response team was called to the bedside earlier this morning for oxygen desaturation. The patient was admitted on 05/22/2020 with a confirmed diagnosis of COVID-19 pneumonia. At the time of clinical interview, the patient is awake, alert and obviously dyspneic. He is able to answer yes and no questions. Based on bedside report, the patient has had a rapidly increasing oxygen requirement. At the time of clinical interview, the patient is on high BiPAP pressure settings with an FiO2 100%. His respiratory does fine (approximately 40/min). Tidal volumes are 4876-9026 mL/breath. ABG was obtained at the initiation of the rapid response request: 7.43. The patient does endorse dyspnea. Occasional cough. Denies chest pain. He is tired. But denies presyncope or syncope. Bedside telemetry reveals atrial fibrillation with rapid ventricular response with a particular rate as high as 180. SPO2 in the 70s despite BiPAP with FiO2 100%. At the bedside, the patient's home meds were reviewed, and it was determined that the patient takes Toprol-XL 200 mg daily; however, he has been unable to take this medication by mouth due to his BiPAP dependence. The patient was given 2 doses of Lopressor IV 5 mg, which did result in slowing of his ventricular rate to the 120s to 130s. SPO2 subsequently improved to 90%. Additionally, BiPAP was changed to CPAP 16. History obtained from:: Patient, bedside nurse, Dr. Hernandez, review of chart - Diagnosis/Plan (1) Acute hypoxemic respiratory failure Is this a current diagnosis for this admission?: Yes Plan: * Set FiO2 100%. * Wean CPAP pressure as tolerated. * Maintain SPO2 88+%. * At this point, it appears that the patient's oxygen desaturation is closely related to poorly tolerated rapid ventricular rate. In addition, COVID-19 pneumonia is obviously contributing to this problem. (2) Pneumonia due to COVID-19 virus Is this a current diagnosis for this admission?: Yes Plan: * Already received remdesivir and ivermectin. * Increase Decadron to 6 mg IV every 12 hours. * Increase vitamin C to 1000 mg p.o. 3 times daily. * Increase vitamin D3 to 5000 units p.o. daily. * Continue zinc sulfate. (3) Atrial fibrillation with rapid ventricular response Is this a current diagnosis for this admission?: Yes Plan: * Start heparin infusion. * 12-lead EKG in a.m. * Check troponin. * In light of his home regimen of Toprol-XL 200 mg p.o. daily, continue Lopressor 5 mg IV every 6 hours while BiPAP dependent. * Continue Cardizem drip for rate control. (4) Chronic obstructive pulmonary disease (COPD) Qualifiers: COPD type: emphysema Emphysema type: centrilobular Qualified Code(s): J43.2 - Centrilobular emphysema Is this a current diagnosis for this admission?: Yes (5) GERD (gastroesophageal reflux disease) Qualifiers: Esophagitis presence: esophagitis presence not specified Qualified Code(s): K21.9 - Gastro-esophageal reflux disease without esophagitis Is this a current diagnosis for this admission?: Yes Plan Summary: Transfer to ICU for higher level of care. Past Medical History Cardiac Medical History: Reports: Hypertension Pulmonary Medical History: Denies: Tuberculosis Renal/ Medical History: Reports: Other - BPH with LUTS GI Medical History: Reports: Gastroesophageal Reflux Disease Musculoskeltal Medical History: Reports: Arthritis Psychiatric Medical History: Denies: Depression Past Surgical History Past Surgical History: Denies: Pacemaker Social/Family History - Social History Smoking Status: Former Smoker Frequency of Alcohol Use: None Hx Recreational Drug Use: No Drugs: None Hx Prescription Drug Abuse: No - Medication/Allergies Home Medications: Finasteride 5 mg PO DAILY 04/03/11 Omeprazole [Prilosec] 20 mg PO DAILY 04/03/11 Prednisone [Deltasone 10 mg Tablet] 10 mg PO DAILY 04/03/11 Amlodipine Besylate [Norvasc 10 mg Tablet] 10 mg PO DAILY 05/23/20 Metoprolol Succinate [Toprol Xl] 200 mg PO DAILY 05/23/20 Tamsulosin HCl [Flomax 0.4 mg Cap.sr] 0.4 mg PO DAILY 05/23/20 Valsartan/Hydrochlorothiazide [Valsartan-Hctz 160-12.5 mg Tab] 1 each PO DAILY 05/23/20 Allergies/Adverse Reactions: No Known Allergies Allergy (Verified 05/22/20 16:36) Review of Systems ROS unobtainable: Other Constitutional: PRESENT: fatigue, weakness. ABSENT: chills, fever(s) Respiratory: PRESENT: cough, dyspnea. ABSENT: hemoptysis, sputum Gastrointestinal: ABSENT: abdominal pain, heartburn, nausea, vomiting Neurological: PRESENT: dizziness. ABSENT: abnormal gait, abnormal movements, confusion, convulsions, focal weakness, syncope Psychiatric: PRESENT: anxiety. ABSENT: depression, hallucinations Physical Exam Vital Signs: Temp Pulse Resp BP Pulse Ox 98.3 F 162 H 45 H 138/86 H 81 L 06/01/20 03:21 06/01/20 08:50 06/01/20 08:50 06/01/20 03:21 06/01/20 08:50 Intake & Output 05/31/20 06/01/20 06/02/20 06:59 06:59 06:59 Intake Total 0 250 Output Total 750 1025 Balance -750 -775 Weight 89 kg 90.3 kg Weight/Height Weight 90.3 kg Height 1.7 m General appearance: PRESENT: no acute distress Head exam: PRESENT: atraumatic, normocephalic Eye exam: PRESENT: conjunctiva pink, EOMI, PERRLA. ABSENT: scleral icterus Neck exam: ABSENT: carotid bruit, JVD, lymphadenopathy, thyromegaly Respiratory exam: PRESENT: clear to auscultation sherin, symmetrical, tachypnea. ABSENT: rales, rhonchi, wheezes Cardiovascular exam: PRESENT: irregular rhythm, tachycardia. ABSENT: diastolic murmur, rubs, systolic murmur Pulses: PRESENT: normal dorsalis pedis pul GI/Abdominal exam: PRESENT: normal bowel sounds, soft. ABSENT: distended, gu arding, mass, organolmegaly, rebound, tenderness Rectal exam: PRESENT: deferred Extremities exam: PRESENT: full ROM. ABSENT: calf tenderness, clubbing, pedal edema Musculoskeletal exam: PRESENT: normal inspection. ABSENT: deformity Neurological exam: PRESENT: alert, awake, oriented to person, oriented to place, oriented to time, oriented to situation, reflexes normal, CN II-XII grossly intact. ABSENT: motor sensory deficit Psychiatric exam: PRESENT: agitated, anxious Skin exam: PRESENT: dry, intact, warm. ABSENT: cyanosis, rash Laboratory/Radiographs Laboratory Results: 06/01/20 09:11 06/01/20 09:11 05/31/20 06/01/20 06/01/20 13:21 08:37 09:11 WBC 15.7 H D 11.8 H RBC 5.11 5.30 Hgb 13.8 14.5 Hct 41.7 43.5 MCV 82 82 MCH 27.0 27.3 MCHC 33.1 33.3 RDW 17.1 H 17.0 H Plt Count 263 310 Seg Neutrophils % Not Reportable Carbonic Acid 1.17 HCO3/H2CO3 Ratio 20:1 ABG pH 7.40 ABG pCO2 38.9 ABG pO2 43.3 L ABG HCO3 23.4 ABG O2 Saturation 79.2 L ABG Base Excess -1.2 FiO2 100% Sodium Potassium Chloride Carbon Dioxide Anion Gap BUN Creatinine Est GFR ( Amer) Glucose Calcium Total Bilirubin AST Alkaline Phosphatase Total Protein Albumin 06/01/20 09:11 WBC RBC Hgb Hct MCV MCH MCHC RDW Plt Count Seg Neutrophils % Carbonic Acid HCO3/H2CO3 Ratio ABG pH ABG pCO2 ABG pO2 ABG HCO3 ABG O2 Saturation ABG Base Excess FiO2 Sodium 139.4 Potassium 4.3 Chloride 108 H Carbon Dioxide 21 L Anion Gap 10 BUN 26 H Creatinine 0.66 Est GFR ( Amer) > 60 Glucose 155 H Calcium 8.7 Total Bilirubin 0.9 AST 38 Alkaline Phosphatase 101 Total Protein 6.1 L Albumin 2.5 L 05/22/20 16:22 Troponin I 0.029 Impressions: Abdomen/Pelvis CT 05/22/20 17:23 IMPRESSION: Mild basilar atelectasis or infiltration, greater on the right. No acute abnormality is seen within the abdomen or pelvis. Additional, chronic-appearing findings are noted as above. TECHNICAL DOCUMENTATION: Quality ID # 436: Final reports with documentation of one or more dose reduction techniques (e.g., Automated exposure control, adjustment of the mA and/or kV according to patient size, use of iterative reconstruction technique) copyright 2011 [employer]- All Rights Reserved Chest CT 05/26/20 00:00 IMPRESSION: Diffuse bilateral ground-glass opacities consistent with either edema, atelectasis or pneumonia. Extensive centrilobular emphysematous changes. Probable underlying pulmonary fibrosis. Peripancreatic inflammatory changes suspicious for pancreatitis new from prior exam. Hyperattenuating lesion in the right kidney most likely hemorrhagic cyst. Guidance Fluoroscopy 05/29/20 00:00 IMPRESSION: Successful placement of upper extremity PICC line using ultrasound guidance. Interventional Vascular Procedure 05/29/20 00:00 IMPRESSION: Successful placement of upper extremity PICC line using ultrasound guidance. PICC Line Insertion 05/29/20 00:00 IMPRESSION: Successful placement of upper extremity PICC line using ultrasound guidance. Chest X-Ray 06/01/20 00:00 IMPRESSION: DIFFUSE BILATERAL AIRSPACE DISEASE. NO SIGNIFICANT INTERVAL CHANGE. All labs, radiographs, diagnostic studies and EKGs were personally reviewed: Yes In addition, reports of radiographic and diagnostic studies were read: Yes Critical Time Critical Time (minutes): 60 -: The care of a critically ill patient is dynamic. This note represents a static moment in the admission process. Orders and treatments may be given simultaneously and urgently, and time is not sales representative adding machines of the treatment process. This patient requires Critical Care secondary to life threatening organ or limb dysfunction. Without Critical Care services, the patient is at risk for increased mortality and morbidity.
[2020-06-01 13:57] LABS: INTERNATIONAL RATION (INR) 1.17; PROTHROMBIN TIME 15.1 SEC (11.4-15.4)
[2020-06-01 14:12] LABS: HEMATOCRIT 42.4 % (37.9-51.0); HEMOGLOBIN 14.2 g/dL (13.5-17.0); MEAN CORPUSCULAR HEMOGLOBIN 27.4 pg (27.0-33.4); MEAN CORPUSCULAR HGB CONC 33.4 g/dL (32.0-36.0); MEAN CORPUSCULAR VOLUME 82 fl (80-97); PLATELET COUNT 224 10^3/uL (150-450); RED BLOOD COUNT 5.17 10^6/uL (4.35-5.55); RED CELL DISTRIBUTION WIDTH 17.3 % (11.5-14.0); WHITE BLOOD COUNT 11.9 10^3/uL (4.0-10.5)
[2020-06-01 14:16] LABS: ABSOLUTE LYMPHOCYTES# (MANUAL) 0.1 10^3/uL (0.5-4.7); ABSOLUTE MONOCYTES # (MANUAL) 0.5 10^3/uL (0.1-1.4); BASOPHILS % (MANUAL) 0 % (0-2); EOSINOPHILS % (MANUAL) 1 % (0-6); LYMPHOCYTES % (MANUAL) 1 % (13-45); MONOCYTES % (MANUAL) 4 % (3-13); SEGMENTED NEUTROPHILS % (MAN) 94 % (42-78); TOTAL CELLS COUNTED 100
[2020-06-01 14:18] LABS: ANISOCYTOSIS 1+; BURR CELLS SLIGHT; OVALOCYTES SLIGHT; PLATELET CLUMPS PRESENT; PLATELET COMMENT ADEQUATE; TOXIC VACUOLATION PRESENT
[2020-06-01 14:31] LABS: TROPONIN I 0.141 ng/mL
[2020-06-01] MEDS: AMINO ACIDS 5 %/DEXTROSE 20 % 1,000 ML IV PRN (16:06)
[2020-06-01] MEDS: HEPARIN SODIUM,PORCINE/D5W 25,000 UNIT/250 ML RTUINJ IV PRN (16:40)
[2020-06-01] MEDS: METOPROLOL TARTRATE PF/INJ 5 MG/5 ML SDV IV SCH ×2 (17:48→21:38)
--- NOTE | 2020-06-01 19:15 | Progress Note ---
Provider Note Provider Note: Case discussed with Dr. Joaquin. The patient has been started on Cardizem infusion and scheduled IV metoprolol to achieve better rate control of his atrial fibrillation. Patient is on CPAP 16. FiO2 100%. SPO2 has been stable at 95% throughout the day. Due to limitations in staffing and bed availability, I have asked Dr. Joaquin to resume care this patient. We do remain available if needed for critical care consultation.
--- NOTE | 2020-06-01 20:31 | PDOC PROGRESS REPORT ---
Subjective Date:: 06/01/20 Subjective:: Patient is seen by the bedside, he virtually depends on the noninvasive positive pressure ventilation BiPAP he is in semiprone position, patient is not able to eat by mouth because it cannot come off the BiPAP ,a PICC line was placed yesterday TPN initiated today to provide nutrition. He was admitted for COVID- positive test (U07.1, COVID-19) with Acute Pneumonia (J12.89, Other viral pneumonia)(If respiratory failure or sepsis present, add as separate assessment) Complicated with severe hypoxemic respiratory failure. 05/31/2020 Patient continues to require BiPAP, FiO2 100%, oxygen saturation is in the early 90s,Patient responds to verbal command, on TPN 06/01/2020 Patient continues to require BiPAP, he developed paroxysmal atrial fibrillation with RVR, chest x-ray showed diffuse bilateral infiltrates with hypoxemia consistent with ARDS, consultation requested from ICU for transfer out to the unit.Patient may require mechanical ventilation Reason For Visit: COVID PNEUMONIA, HTN Physical Exam Vital Signs: Temp Pulse Resp BP Pulse Ox 98.6 F 94 32 H 149/84 H 95 06/01/20 07:51 06/01/20 19:09 06/01/20 17:19 06/01/20 07:51 06/01/20 17:19 Intake & Output 05/31/20 06/01/20 06/02/20 06:59 06:59 06:59 Intake Total 0 250 Output Total 750 1025 200 Balance -750 -775 -200 Weight 89 kg 90.3 kg General appearance: PRESENT: other - Patient on BiPAP machine Eye exam: PRESENT: PERRLA Respiratory exam: PRESENT: rhonchi Cardiovascular exam: PRESENT: +S1, +S2 GI/Abdominal exam: PRESENT: soft Neurological exam: PRESENT: alert Results Laboratory Results: 06/01/20 13:34 06/01/20 09:11 06/01/20 06/01/20 06/01/20 08:37 09:11 09:11 WBC 11.8 H RBC 5.30 Hgb 14.5 Hct 43.5 MCV 82 MCH 27.3 MCHC 33.3 RDW 17.0 H Plt Count 310 Seg Neutrophils % Not Reportable Carbonic Acid 1.17 HCO3/H2CO3 Ratio 20:1 ABG pH 7.40 ABG pCO2 38.9 ABG pO2 43.3 L ABG HCO3 23.4 ABG O2 Saturation 79.2 L ABG Base Excess -1.2 FiO2 100% Sodium 139.4 Potassium 4.3 Chloride 108 H Carbon Dioxide 21 L Anion Gap 10 BUN 26 H Creatinine 0.66 Est GFR ( Amer) > 60 Glucose 155 H Calcium 8.7 Total Bilirubin 0.9 AST 38 Alkaline Phosphatase 101 C-Reactive Protein Total Protein 6.1 L Albumin 2.5 L 06/01/20 06/01/20 13:34 13:34 WBC 11.9 H RBC 5.17 Hgb 14.2 Hct 42.4 MCV 82 MCH 27.4 MCHC 33.4 RDW 17.3 H Plt Count 224 Seg Neutrophils % Not Reportable Carbonic Acid HCO3/H2CO3 Ratio ABG pH ABG pCO2 ABG pO2 ABG HCO3 ABG O2 Saturation ABG Base Excess FiO2 Sodium Potassium Chloride Carbon Dioxide Anion Gap BUN Creatinine Est GFR ( Amer) Glucose Calcium Total Bilirubin AST Alkaline Phosphatase C-Reactive Protein 149.8 H Total Protein Albumin 05/22/20 06/01/20 16:22 13:34 Troponin I 0.029 0.141 NT-Pro-B Natriuret Pep 510 H Impressions: Abdomen/Pelvis CT 05/22/20 17:23 IMPRESSION: Mild basilar atelectasis or infiltration, greater on the right. No acute abnormality is seen within the abdomen or pelvis. Additional, chronic-appearing findings are noted as above. TECHNICAL DOCUMENTATION: Quality ID # 436: Final reports with documentation of one or more dose reduction techniques (e.g., Automated exposure control, adjustment of the mA and/or kV according to patient size, use of iterative reconstruction technique) copyright 2011 [employer]- All Rights Reserved Chest CT 05/26/20 00:00 IMPRESSION: Diffuse bilateral ground-glass opacities consistent with either edema, atelectasis or pneumonia. Extensive centrilobular emphysematous changes. Probable underlying pulmonary fibrosis. Peripancreatic inflammatory changes suspicious for pancreatitis new from prior exam. Hyperattenuating lesion in the right kidney most likely hemorrhagic cyst. Guidance Fluoroscopy 05/29/20 00:00 IMPRESSION: Successful placement of upper extremity PICC line using ultrasound guidance. Interventional Vascular Procedure 05/29/20 00:00 IMPRESSION: Successful placement of upper extremity PICC line using ultrasound guidance. PICC Line Insertion 05/29/20 00:00 IMPRESSION: Successful placement of upper extremity PICC line using ultrasound guidance. Chest X-Ray 06/01/20 00:00 IMPRESSION: DIFFUSE BILATERAL AIRSPACE DISEASE. NO SIGNIFICANT INTERVAL CHANGE. Assessment & Plan - Diagnosis (1) Acute hypoxemic respiratory failure Is this a current diagnosis for this admission?: Yes Plan: Patient will continue present NIPPV the plan was for transfer to ICU, there is no bed available at this moment (2) COVID-19 virus infection Is this a current diagnosis for this admission?: Yes Plan: Continue IV dexamethasone, IV antibiotic (3) Anorexia Is this a current diagnosis for this admission?: Yes Plan: Patient on TPN (4) Pneumonia Qualifiers: Pneumonia type: due to unspecified organism Laterality: bilateral Lung location: lower lobe of lung Qualified Code(s): J18.9 - Pneumonia, unspecified organism Is this a current diagnosis for this admission?: Yes (5) Chronic obstructive pulmonary disease (COPD) Qualifiers: COPD type: emphysema Emphysema type: centrilobular Qualified Code(s): J43.2 - Centrilobular emphysema Is this a current diagnosis for this admission?: Yes (6) Pancreatitis Qualifiers: Chronicity: acute Pancreatitis type: unspecified pancreatitis type Acute pancreatitis complication: unspecified Qualified Code(s): K85.90 - Acute pancreatitis without necrosis or infection, unspecified Is this a current diagnosis for this admission?: Yes (7) Atrial fibrillation with rapid ventricular response Is this a current diagnosis for this admission?: Yes Plan: Patient on Cardizem drip - Time Time Spent with patient: 35 or more minutes Level of Care: IMCU Medications reviewed and adjusted accordingly: Yes - Inpatient Certification Based on my medical assessment, after consideration of the patient's comorbidities, presenting symptoms, or acuity I expect that the services needed warrant INPATIENT care.: Yes I certify that my determination is in accordance with my understanding of Medicare's requirements for reasonable and necessary INPATIENT services [42 CFR 412.3e].: Yes
[2020-06-01] MEDS: BUDESONIDE NEB 0.25 MG/2 ML AMPUL NEB SCH (21:15)
[2020-06-01] MEDS: MELATONIN 5 MG TABLET PO SCH (21:38)
[2020-06-02] MEDS: INSULIN REG, HUMAN 100 UNIT/ML 3 ML VIAL (PYX) SUBCUT SCH ×4 (00:14→19:08)
[2020-06-02] MEDS: DEXAMETHASONE SOD PHOS INJ 10 MG/1 ML VIAL IV SCH ×2 (00:37→15:26)
[2020-06-02] MEDS: METOPROLOL TARTRATE PF/INJ 5 MG/5 ML SDV IV SCH ×4 (04:00→21:46)
[2020-06-02 06:22] LABS: HEMATOCRIT 41.6 % (37.9-51.0); HEMOGLOBIN 14.3 g/dL (13.5-17.0); MEAN CORPUSCULAR HEMOGLOBIN 27.9 pg (27.0-33.4); MEAN CORPUSCULAR HGB CONC 34.3 g/dL (32.0-36.0); MEAN CORPUSCULAR VOLUME 82 fl (80-97); PLATELET COUNT 202 10^3/uL (150-450); RED BLOOD COUNT 5.11 10^6/uL (4.35-5.55); RED CELL DISTRIBUTION WIDTH 17.6 % (11.5-14.0); WHITE BLOOD COUNT 10.5 10^3/uL (4.0-10.5)
[2020-06-02] MEDS: HEPARIN SOD (PORCINE) 1,000 UNIT/ML 10 ML VIAL IV PRN ×2 (06:58→19:27)
[2020-06-02] MEDS: IPRATROPIUM/ALBUTEROL 0.5-2.5 MG/3 ML AMPUL NEB PRN (07:34)
[2020-06-02] MEDS: BUDESONIDE NEB 0.25 MG/2 ML AMPUL NEB SCH ×2 (07:34→19:58)
[2020-06-02 08:24] LABS: APPEARANCE,URINE CLOUDY; BILIRUBIN,URINE NEGATIVE (NEGATIVE); GLUCOSE, URINE NEGATIVE (NEGATIVE); KETONES,URINE NEGATIVE (NEGATIVE); LEUKOCYTE ESTERASE,URINE MODERATE (NEGATIVE); NITRITE,URINE POSITIVE (NEGATIVE); PROTEIN,URINE 100 mg/dL (NEGATIVE); URINE SPECIFIC GRAVITY 1.019
[2020-06-02 08:25] LABS: COLOR,URINE DARK YELLOW
[2020-06-02] MEDS: DILTIAZEM HCL/D5W 125 MG/125 ML RTUINJ IV PRN ×2 (09:57→18:47)
[2020-06-02] MEDS: ASPIRIN 81 MG TABLET, ENT COATED PO SCH (11:14)
[2020-06-02] MEDS: AMLODIPINE BESYLATE 10 MG TABLET PO SCH (11:15)
[2020-06-02] MEDS: TAMSULOSIN HCL 0.4 MG CAP.SR.24H PO SCH (11:15)
[2020-06-02] MEDS: FINASTERIDE 5 MG TABLET PO SCH (11:16)
[2020-06-02] MEDS: CHOLECALCIFEROL (D3) 1,000 UNIT (25 MCG) TABLET PO SCH (11:17)
[2020-06-02] MEDS: ASCORBIC ACID 500 MG TABLET PO SCH ×2 (11:17→19:07)
[2020-06-02] MEDS: ZINC SULFATE 220 MG CAPSULE PO SCH (11:17)
[2020-06-02] MEDS: NORMAL SALINE 10 ML SDV (SCHEDULED) IV SCH ×2 (11:18→21:47)
[2020-06-02] MEDS ORDERED: FUROSEMIDE INJ/PF 40 MG/4 ML SDV IV ONE (13:57)
[2020-06-02] MEDS ORDERED: MORPHINE SULFATE 10 MG/ML INJ IV ONE ×2 (13:58→20:00)
[2020-06-02] MEDS ORDERED: FUROSEMIDE INJ/PF 40 MG/4 ML SDV ONE (13:59)
[2020-06-02] MEDS ORDERED: MORPHINE SULFATE 10 MG/ML INJ ONE (13:59)
[2020-06-02] MEDS: LEVALBUTEROL HCL NEB 1.25 MG/3 ML AMPUL NEB PRN ×2 (14:13→19:58)
--- NOTE | 2020-06-02 14:58 | PDOC PROGRESS REPORT ---
Subjective Date:: 06/02/20 Subjective:: Patient seen by the bedside, continues to require noninvasive positive pressure ventilation, BiPAP, patient ICU appropriate but there is no ICU bed available, he has ARDS Reason For Visit: COVID PNEUMONIA, HTN Physical Exam Vital Signs: Temp Pulse Resp BP Pulse Ox 97.9 F 111 H 34 H 122/68 91 L 06/02/20 04:05 06/02/20 13:00 06/02/20 14:13 06/02/20 06:30 06/02/20 14:13 Intake & Output 06/01/20 06/02/20 06/03/20 06:59 06:59 06:59 Intake Total 250 268 Output Total 1025 1425 Balance -775 -1425 268 Weight 90.3 kg 89.1 kg General appearance: PRESENT: other - Patient on BiPAP Respiratory exam: PRESENT: decreased breath sounds Cardiovascular exam: PRESENT: +S1, +S2 Neurological exam: PRESENT: altered Results Laboratory Results: 06/02/20 05:10 06/01/20 09:11 06/01/20 06/02/20 06/02/20 13:34 05:10 06:05 WBC 10.5 RBC 5.11 Hgb 14.3 Hct 41.6 MCV 82 MCH 27.9 MCHC 34.3 RDW 17.6 H Plt Count 202 C-Reactive Protein 149.8 H Urine Color DARK YELLOW Urine Appearance CLOUDY Urine pH 5.0 Ur Specific [place] 1.019 Urine Protein 100 H Urine Glucose (UA) NEGATIVE Urine Ketones NEGATIVE Urine Blood LARGE H Urine Nitrite POSITIVE H Ur Leukocyte Esterase MODERATE H Urine WBC (Auto) >182 Urine RBC (Auto) >182 05/22/20 06/01/20 16:22 13:34 Troponin I 0.029 0.141 NT-Pro-B Natriuret Pep 510 H Impressions: Abdomen/Pelvis CT 05/22/20 17:23 IMPRESSION: Mild basilar atelectasis or infiltration, greater on the right. No acute abnormality is seen within the abdomen or pelvis. Additional, chronic-appearing findings are noted as above. TECHNICAL DOCUMENTATION: Quality ID # 436: Final reports with documentation of one or more dose reduction techniques (e.g., Automated exposure control, adjustment of the mA and/or kV according to patient size, use of iterative reconstruction technique) copyright 2011 [employer]- All Rights Reserved Chest CT 05/26/20 00:00 IMPRESSION: Diffuse bilateral ground-glass opacities consistent with either edema, atelectasis or pneumonia. Extensive centrilobular emphysematous changes. Probable underlying pulmonary fibrosis. Peripancreatic inflammatory changes suspicious for pancreatitis new from prior exam. Hyperattenuating lesion in the right kidney most likely hemorrhagic cyst. Guidance Fluoroscopy 05/29/20 00:00 IMPRESSION: Successful placement of upper extremity PICC line using ultrasound guidance. Interventional Vascular Procedure 05/29/20 00:00 IMPRESSION: Successful placement of upper extremity PICC line using ultrasound guidance. PICC Line Insertion 05/29/20 00:00 IMPRESSION: Successful placement of upper extremity PICC line using ultrasound guidance. Chest X-Ray 06/01/20 00:00 IMPRESSION: DIFFUSE BILATERAL AIRSPACE DISEASE. NO SIGNIFICANT INTERVAL CHANGE. Assessment & Plan - Diagnosis (1) Acute hypoxemic respiratory failure Is this a current diagnosis for this admission?: Yes Plan: He has acute hypoxemic respiratory failure due to ARDS, patient need mechanical ventilation, There is no ICU bed patient on NIPPV (2) COVID-19 virus infection Is this a current diagnosis for this admission?: Yes Plan: Continue IV dexamethasone, IV antibiotic (3) Anorexia Is this a current diagnosis for this admission?: Yes Plan: Patient on TPN (4) Pneumonia Qualifiers: Pneumonia type: due to unspecified organism Laterality: bilateral Lung location: lower lobe of lung Qualified Code(s): J18.9 - Pneumonia, unspecified organism Is this a current diagnosis for this admission?: Yes (5) Chronic obstructive pulmonary disease (COPD) Qualifiers: COPD type: emphysema Emphysema type: centrilobular Qualified Code(s): J43.2 - Centrilobular emphysema Is this a current diagnosis for this admission?: Yes (6) Pancreatitis Qualifiers: Chronicity: acute Pancreatitis type: unspecified pancreatitis type Acute pancreatitis complication: unspecified Qualified Code(s): K85.90 - Acute pancreatitis without necrosis or infection, unspecified Is this a current diagnosis for this admission?: Yes (7) Atrial fibrillation with rapid ventricular response Is this a current diagnosis for this admission?: Yes Plan: Patient on Cardizem drip (8) Elevated d-dimer Is this a current diagnosis for this admission?: Yes Plan: The serum D-dimer is more than 20, presently on IV heparin for presumptive PE, could not confirm PE because of patient unstable respiratory status (9) ARDS (adult respiratory distress syndrome) Is this a current diagnosis for this admission?: Yes Plan: Patient with ARDS, he requires mechanical ventilation,NO ICU bed - Time Time Spent with patient: 35 or more minutes Level of Care: IMCU Medications reviewed and adjusted accordingly: Yes Anticipated discharge: Home - Inpatient Certification Based on my medical assessment, after consideration of the patient's co morbidities, presenting symptoms, or acuity I expect that the services needed warrant INPATIENT care.: Yes I certify that my determination is in accordance with my understanding of Medicare's requirements for reasonable and necessary INPATIENT services [42 CFR 412.3e].: Yes
[2020-06-02 15:02] LABS: ARTERIAL BLOOD BASE EXCESS 0 mmol/L; ARTERIAL BLOOD H2CO3 1.15 mmol/L (1.05-1.35); ARTERIAL BLOOD HCO3 24.2 mmol/L (20-24); ARTERIAL BLOOD O2 SATURATION 88.6 % (94-98); ARTERIAL BLOOD PCO2 38.1 mmHg (35-45); ARTERIAL BLOOD PH 7.42 (7.35-7.45); ARTERIAL BLOOD PO2 53.6 mmHg (80-100); ARTERIAL BLOOD TOTAL CO2 25.3 mmol/L (23-27)
[2020-06-02 15:03] LABS: ARTERIAL BLOOD FIO2 100%
--- NOTE | 2020-06-02 15:31 | RADIOLOGY REPORT (SQ) ---
EXAM DESCRIPTION: CHEST SINGLE VIEW IMAGES COMPLETED DATE/TIME: 06/02/2020 2:56 pm REASON FOR STUDY: SOB COMPARISON: 06/01/2020 EXAM PARAMETERS: NUMBER OF VIEWS: One view. TECHNIQUE: Single frontal radiographic view of the chest acquired. RADIATION DOSE: NA LIMITATIONS: None. FINDINGS: LUNGS AND PLEURA: Stable pulmonary exam demonstrating asymmetric airspace opacities (right greater than left). No pneumothorax. MEDIASTINUM AND HILAR STRUCTURES: No masses. Contour normal. HEART AND VASCULAR STRUCTURES: Heart normal in size. Normal vasculature. BONES: No acute findings. HARDWARE: Right upper extremity PICC, stable. OTHER: No other significant finding. IMPRESSION: Stable radiographic appearance of the chest demonstrating multifocal airspace opacities and a right upper extremity PICC. TECHNICAL DOCUMENTATION: JOB ID: [id number] [employer]- All Rights Reserved Reading location - IP/workstation name: [email or web address]
[2020-06-02] MEDS: HEPARIN SODIUM,PORCINE/D5W 25,000 UNIT/250 ML RTUINJ IV PRN (16:50)
[2020-06-02 18:29] LABS: ALBUMIN 2.5 g/dL (3.5-5.0); ALKALINE PHOSPHATASE 114 U/L (38-126); ANION GAP 9 (5-19); ASPARTATE AMINO TRANSFERASE 30 U/L (17-59); BILIRUBIN,DIRECT 0.5 mg/dL (0.0-0.4); BILIRUBIN,TOTAL 0.9 mg/dL (0.2-1.3); BLOOD UREA NITROGEN 29 mg/dL (7-20); CALCIUM 8.7 mg/dL (8.4-10.2); CARBON DIOXIDE 29 mmol/L (22-30); CHLORIDE 105 mmol/L (98-107); GLUCOSE 194 mg/dL (75-110); POTASSIUM 4.2 mmol/L (3.6-5.0)
[2020-06-02] MEDS: MELATONIN 5 MG TABLET PO SCH (21:47)
--- NOTE | 2020-06-02 23:40 | EKG REPORT ---
SEVERITY:- ABNORMAL ECG - SINUS RHYTHM PROBABLE ANTEROSEPTAL INFARCT, OLD : Confirmed by: Amandeep Miles 02-Jun-2020 23:39:57
[2020-06-03] MEDS: DEXAMETHASONE SOD PHOS INJ 10 MG/1 ML VIAL IV SCH ×2 (01:25→13:51)
[2020-06-03] MEDS: INSULIN REG, HUMAN 100 UNIT/ML 3 ML VIAL (PYX) SUBCUT SCH ×5 (06:27→23:12)
[2020-06-03] MEDS: METOPROLOL TARTRATE PF/INJ 5 MG/5 ML SDV IV SCH ×4 (06:28→21:08)
[2020-06-03] MEDS: HEPARIN SODIUM,PORCINE/D5W 25,000 UNIT/250 ML RTUINJ IV PRN ×2 (06:49→18:04)
[2020-06-03] MEDS: DILTIAZEM HCL/D5W 125 MG/125 ML RTUINJ IV PRN ×3 (06:52→18:04)
[2020-06-03 07:11] LABS: PARTIAL THROMBOPLASTIN TIME 88.7 SEC (23.5-35.8)
[2020-06-03] MEDS: LEVALBUTEROL HCL NEB 1.25 MG/3 ML AMPUL NEB PRN ×2 (07:37→11:03)
[2020-06-03] MEDS: BUDESONIDE NEB 0.25 MG/2 ML AMPUL NEB SCH ×2 (07:37→20:45)
[2020-06-03 07:43] LABS: ALBUMIN 2.4 g/dL (3.5-5.0); ALKALINE PHOSPHATASE 119 U/L (38-126); ANION GAP 7 (5-19); ASPARTATE AMINO TRANSFERASE 25 U/L (17-59); BILIRUBIN,DIRECT 0.4 mg/dL (0.0-0.4); BILIRUBIN,TOTAL 0.7 mg/dL (0.2-1.3); BLOOD UREA NITROGEN 31 mg/dL (7-20); CALCIUM 8.5 mg/dL (8.4-10.2); CARBON DIOXIDE 29 mmol/L (22-30); CHLORIDE 106 mmol/L (98-107); GLUCOSE 210 mg/dL (75-110); PHOSPHORUS 2.8 mg/dL (2.5-4.5); POTASSIUM 4.4 mmol/L (3.6-5.0); TOTAL PROTEIN 5.7 g/dL (6.3-8.2)
[2020-06-03 07:50] LABS: PREALBUMIN 13.9 mg/dL (17.6-36.0)
[2020-06-03 07:56] LABS: D-DIMER 4.76 ug/mL (0.00-0.50)
[2020-06-03] MEDS: TAMSULOSIN HCL 0.4 MG CAP.SR.24H PO SCH (09:22)
[2020-06-03] MEDS: ASPIRIN 81 MG TABLET, ENT COATED PO SCH (09:22)
[2020-06-03] MEDS: CHOLECALCIFEROL (D3) 1,000 UNIT (25 MCG) TABLET PO SCH (09:25)
[2020-06-03] MEDS: AMLODIPINE BESYLATE 10 MG TABLET PO SCH (09:25)
[2020-06-03] MEDS: FINASTERIDE 5 MG TABLET PO SCH (09:25)
[2020-06-03] MEDS: ASCORBIC ACID 500 MG TABLET PO SCH ×2 (09:25→18:01)
[2020-06-03] MEDS: FAT EMULSIONS 250 ML IV SCH (09:43)
[2020-06-03] MEDS: NORMAL SALINE 10 ML SDV (SCHEDULED) IV SCH ×2 (09:45→21:06)
[2020-06-03 10:12] LABS: APPEARANCE,URINE CLOUDY; BILIRUBIN,URINE NEGATIVE (NEGATIVE); GLUCOSE, URINE NEGATIVE (NEGATIVE); KETONES,URINE NEGATIVE (NEGATIVE); LEUKOCYTE ESTERASE,URINE MODERATE (NEGATIVE); NITRITE,URINE NEGATIVE (NEGATIVE); PROTEIN,URINE 30 mg/dL (NEGATIVE); URINE SPECIFIC GRAVITY 1.019
[2020-06-03 10:14] LABS: COLOR,URINE DARK YELLOW
[2020-06-03] MEDS ORDERED: LORAZEPAM INJ 2 MG/1 ML VIAL ONE ×2 (11:42→12:19)
[2020-06-03] MEDS ORDERED: LORAZEPAM INJ 2 MG/1 ML VIAL IV PRN (11:48)
[2020-06-03] MEDS ORDERED: METOPROLOL TARTRATE PF/INJ 5 MG/5 ML SDV IV ONE ×4 (12:06→12:24)
[2020-06-03] MEDS ORDERED: METHYLPREDNISOLONE INJ 125 MG/2 ML SDV ONE (12:06)
[2020-06-03] MEDS ORDERED: METHYLPREDNISOLONE INJ 125 MG/2 ML SDV IV ONE (12:08)
[2020-06-03] MEDS ORDERED: MORPHINE SULFATE 10 MG/ML INJ ONE ×2 (12:14→21:01)
[2020-06-03 12:19] LABS: ARTERIAL BLOOD BASE EXCESS -7.4 mmol/L; ARTERIAL BLOOD H2CO3 1.02 mmol/L (1.05-1.35); ARTERIAL BLOOD HCO3 17.5 mmol/L (20-24); ARTERIAL BLOOD O2 SATURATION 83.8 % (94-98); ARTERIAL BLOOD PCO2 33.9 mmHg (35-45); ARTERIAL BLOOD PH 7.33 (7.35-7.45); ARTERIAL BLOOD PO2 50.6 mmHg (80-100); ARTERIAL BLOOD TOTAL CO2 18.6 mmol/L (23-27)
[2020-06-03 12:20] LABS: ARTERIAL BLOOD FIO2 100%
[2020-06-03] MEDS ORDERED: LORAZEPAM INJ 2 MG/1 ML VIAL IV ONE (12:30)
[2020-06-03] MEDS ORDERED: ETOMIDATE INJ/PF 20 MG/10 ML SDV IV ONE (12:33)
[2020-06-03] MEDS ORDERED: MORPHINE SULFATE 10 MG/ML INJ IV ONE ×2 (13:00→21:30)
[2020-06-03] MEDS ORDERED: PANTOPRAZOLE SODIUM 40 MG VIAL IV SCH (14:00)
--- NOTE | 2020-06-03 16:06 | RADIOLOGY REPORT (SQ) ---
EXAM DESCRIPTION: CHEST SINGLE VIEW IMAGES COMPLETED DATE/TIME: 06/03/2020 3:51 pm REASON FOR STUDY: PICC Placement? Patient Dislodged COMPARISON: Previous day NUMBER OF VIEWS: One view. TECHNIQUE: Single frontal radiographic image of the chest acquired. LIMITATIONS: None. FINDINGS: LUNGS AND PLEURA: Bilateral airspace disease with slight improved aeration in the lung bas es. MEDIASTINUM AND HEART: Stable heart size and mediastinal structures. SUPPORT DEVICES: Right PICC line has been pulled back with tip overlying the axilla. BONY STRUCTURES: No acute findings. HARDWARE: None. OTHER: No other significant finding. IMPRESSION: PICC line has been pulled back into the axillary vein. Reading location - IP/workstation name: [email or web address]
[2020-06-03] MEDS: AMINO ACIDS 5 %/DEXTROSE 20 % 1,000 ML IV PRN (16:34)
--- NOTE | 2020-06-03 16:37 | RADIOLOGY REPORT (SQ) ---
EXAM DESCRIPTION: PICC LINE REPLACEMENT IMAGES COMPLETED DATE/TIME: 06/03/2020 4:32 pm REASON FOR STUDY: PICC line replacement COMPARISON: None. FLUOROSCOPY TIME: None 1 chest x-ray image saved to PACS. TECHNIQUE: Fluoroscopic guided PICC replacement. LIMITATIONS: None. PROCEDURE: After written consent and assessment were obtained, the patient was brought into the fluo roscopy room and place supine on the table. The right arm existing PICC was prepped and draped in a sterile fashion. The entry site was anesthetized with 1% lidocaine. A .018 glidewire was then inser radha through the existing PICC and into the venous system. The old catheter was then removed and a new catheter measuring 41 cm was advanced over the wire and into the venous system. The wire was then r emoved and the catheter was adhered to the patients arm with a stat lock. The catheter was then aspir ated and flushed and a sterile bandage was placed over the access site. A fluoroscopic spot image wa s saved to PACS confirming the catheter tip within the SVC. IMPRESSION: SUCCESSFUL OVER THE WIRE REPLACEMENT OF AN EXISTING PICC FOR A NEW ONE THAT IS 5 FR DUAL LUMEN 41 CM PICC IN THE RIGHT ARM. COMMENT: Patient medication list reviewed: Yes- Quality ID# [id number]:Eligible professional attests to doc umenting in the medical record they obtained, updated, or reviewed the patient's current medications. . Quality ID 145: Final reports for procedures using fluoroscopy that document radiation exposure raffaele maisha, or exposure time and number of fluorographic images (if radiation exposure indices are not avail able) Quality ID #76: The patient was prepped and draped using maximum sterile barrier technique including cap, mask, sterile gown, sterile gloves, a large sterile sheet, hand hygiene, and 2% Chlorhexidine fo r cutaneous antisepsis. When ultrasound is used, sterile ultrasound techniques are followed requiring sterile gel and sterile probes. TECHNICAL DOCUMENTATION: JOB ID: [id number] [employer]- All Rights Reserved Reading location - IP/workstation name: [email or web address]
--- NOTE | 2020-06-03 19:32 | PDOC CRITICAL CARE PROG REPORT ---
General Date:: 06/03/20 ICU Day:: 1 Hospital Day:: 12 Resuscitation Status: Full Code Events in the past 12 to 24 Hours:: This 84-year-old -[place] male was originally admitted on 05/22/2020 with a confirmed diagnosis of COVID-19 pneumonia. He was admitted to [facility] by Dr. Joaquin. On 06/01/2020, the patient was seen after a call from the rapid response team, which had responded for worsening hypoxia. At that time, the patient was found to be in atrial fibrillation with rapid ventricular response. He demonstrated prompt improvement in blood pressure and oxygen saturation with rate control. He was briefly transferred to the ICU service but was found to be stable on CPAP and transferred back to Dr. Joaquin service. Today, Dr. Joaquin called back with concerns that the patient needed endotracheal intubation. Rapid response team had been called multiple times to assess the patient in the interim. Again, this morning rapid response team was called for worsening hypoxia. 06/03: The patient was transferred to ICU for acute hypoxemic respiratory failure. At the time of clinical interview, the patient is lethargic but arousable. He does follow commands. He is noted to be on CPAP 22 with an SPO2 in the 80s. ABG obtained at 1213: pH 7.33, PCO2 34, PO2 51. Heparin drip was placed on hold for transport to the ICU. On scheduled metoprolol IV along with Cardizem infusion for rate control of atrial fibrillation. Remains on TPN; however, he is partially removed his PICC line. Review of systems relevant to events:: Respiratory: COVID-19 pneumonia, acute hypoxemic respiratory failure, COPD Cardiovascular: Atrial fibrillation with rapid ventricular response Gastrointestinal: GERD Reason for ICU Addmission:: Acute hypoxemic respiratory failure; COVID-19 pneum onia; atrial fibrillation with rapid ventricular response - Medications: Medications reviewed and adjusted accordingly: Yes Physical Exam Vital Signs: Temp Pulse Resp BP Pulse Ox 97.7 F 112 H 36 H 138/83 H 92 06/03/20 12:59 06/03/20 14:00 06/03/20 14:00 06/03/20 14:00 06/03/20 14:00 Intake & Output 06/02/20 06/03/20 06/04/20 06:59 06:59 06:59 Intake Total 792 75 Output Total 1425 1999 75 Balance -3154 -1202 0 Weight 89.1 kg 88.6 kg 84.5 kg Weight/Height Weight 84.5 kg Height 1.7 m General appearance: PRESENT: mild distress, well-developed, well-nourished Head exam: PRESENT: atraumatic, normocephalic Eye exam: PRESENT: conjunctiva pink, EOMI, PERRLA. ABSENT: scleral icterus Mouth exam: PRESENT: dry mucosa, tongue midline Neck exam: ABSENT: carotid bruit, JVD, lymphadenopathy, thyromegaly Respiratory exam: PRESENT: clear to auscultation sherin. ABSENT: rales, rhonchi, wheezes Cardiovascular exam: PRESENT: RRR. ABSENT: diastolic murmur, rubs, systolic murmur Pulses: PRESENT: normal dorsalis pedis pul GI/Abdominal exam: PRESENT: normal bowel sounds, soft. ABSENT: distended, guarding, mass, organolmegaly, rebound, tenderness Gentrourinary exam: PRESENT: indwelling catheter Extremities exam: PRESENT: full ROM. ABSENT: calf tenderness, clubbing, pedal edema Musculoskeletal exam: PRESENT: normal inspection. ABSENT: deformity Neurological exam: PRESENT: awake, reflexes normal, CN II-XII grossly intact. ABSENT: motor sensory deficit Psychiatric exam: PRESENT: anxious Skin exam: PRESENT: dry, intact, warm. ABSENT: cyanosis, rash Tubes/Lines: PRESENT: Central Line - Left PICC Laboratory/Radiographs Laboratory Results: 06/02/20 05:10 06/03/20 06:30 06/02/20 06/03/20 06/03/20 17:36 06:30 06:30 Carbonic Acid HCO3/H2CO3 Ratio ABG pH ABG pCO2 ABG pO2 ABG HCO3 ABG O2 Saturation ABG Base Excess FiO2 Sodium 143.1 141.8 Potassium 4.2 4.4 Chloride 105 106 Carbon Dioxide 29 29 Anion Gap 9 7 BUN 29 H 31 H Creatinine 0.73 0.71 Est GFR ( Amer) > 60 > 60 Glucose 194 H 210 H Calcium 8.7 8.5 Phosphorus 2.8 Total Bilirubin 0.9 0.7 AST 30 25 Alkaline Phosphatase 114 119 C-Reactive Protein 146.0 H Total Protein 6.0 L 5.7 L Albumin 2.5 L 2.4 L Prealbumin 13.9 L Urine Color Urine Appearance Urine pH Ur Specific [place] Urine Protein Urine Glucose (UA) Urine Ketones Urine Blood Urine Nitrite Ur Leukocyte Esterase Urine WBC (Auto) Urine RBC (Auto) 06/03/20 06/03/20 06:30 12:13 Carbonic Acid 1.02 L HCO3/H2CO3 Ratio 17:1 ABG pH 7.33 L ABG pCO2 33.9 L ABG pO2 50.6 L ABG HCO3 17.5 L ABG O2 Saturation 83.8 L ABG Base Excess -7.4 FiO2 100% Sodium Potassium Chloride Carbon Dioxide Anion Gap BUN Creatinine Est GFR ( Amer) Glucose Calcium Phosphorus Total Bilirubin AST Alkaline Phosphatase C-Reactive Protein Total Protein Albumin Prealbumin Urine Color DARK YELLOW Urine Appearance CLOUDY Urine pH 5.0 Ur Specific [place] 1.019 Urine Protein 30 H Urine Glucose (UA) NEGATIVE Urine Ketones NEGATIVE Urine Blood LARGE H Urine Nitrite NEGATIVE Ur Leukocyte Esterase MODERATE H Urine WBC (Auto) 73 Urine RBC (Auto) >182 05/22/20 06/01/20 16:22 13:34 Troponin I 0.029 0.141 NT-Pro-B Natriuret Pep 510 H Impressions: Abdomen/Pelvis CT 05/22/20 17:23 IMPRESSION: Mild basilar atelectasis or infiltration, greater on the right. No acute abnormality is seen within the abdomen or pelvis. Additional, chronic-appearing findings are noted as above. TECHNICAL DOCUMENTATION: Quality ID # 436: Final reports with documentation of one or more dose reduction techniques (e.g., Automated exposure control, adjustment of the mA and/or kV according to patient size, use of iterative reconstruction technique) copyright 2011 [employer]- All Rights Reserved Chest CT 05/26/20 00:00 IMPRESSION: Diffuse bilateral ground-glass opacities consistent with either edema, atelectasis or pneumonia. Extensive centrilobular emphysematous changes. Probable underlying pulmonary fibrosis. Peripancreatic inflammatory changes suspicious for pancreatitis new from prior exam. Hyperattenuating lesion in the right kidney most likely hemorrhagic cyst. Guidance Fluoroscopy 05/29/20 00:00 IMPRESSION: Successful placement of upper extremity PICC line using ultrasound guidance. Interventional Vascular Procedure 05/29/20 00:00 IMPRESSION: Successful placement of upper extremity PICC line using ultrasound guidance. PICC Line Insertion 05/29/20 00:00 IMPRESSION: Successful placement of upper extremity PICC line using ultrasound guidance. Chest X-Ray 06/02/20 00:00 IMPRESSION: Stable radiographic appearance of the chest demonstrating multifocal airspace opacities and a right upper extremity PICC. All labs, radiographs, diagnostic studies and EKGs were personally reviewed: Yes In addition, reports of radiographic and diagnostic studies were read: Yes Assessment and Plan - Diagnosis (1) Acute hypoxemic respiratory failure Is this a current diagnosis for this admission?: Yes Plan: * Bedside titration of CPAP resulted in down titration to CPAP 14. SPO2 97%. * Continue CPAP. * No benzodiazepines. (2) Pneumonia due to COVID-19 virus Is this a current diagnosis for this admission?: Yes Plan: * Continue Decadron and budesonide. * Continue vitamin C, vitamin D, zinc sulfate. * Continue TPN. PICC line to be replaced by radiology today. (3) Atrial fibrillation with rapid ventricular response Is this a current diagnosis for this admission?: Yes Plan: * Continue metoprolol 5 mg IV every 6 hours. (Of note, the patient's home regimen includes Toprol-XL 200 mg p.o. daily) * Continue diltiazem infusion. Titrate for heart rate less than 110. (4) Chronic obstructive pulmonary disease (COPD) Qualifiers: COPD type: emphysema Emphysema type: centrilobular Qualified Code(s): J43.2 - Centrilobular emphysema Is this a current diagnosis for this admission?: Yes (5) GERD (gastroesophageal reflux disease) Qualifiers: Esophagitis presence: esophagitis presence not specified Qualified Code(s): K21.9 - Gastro-esophageal reflux disease without esophagitis Is this a current diagnosis for this admission?: Yes (6) HTN (hypertension) Qualifiers: Hypertension type: essential hypertension Qualified Code(s): I10 - Essential (primary) hypertension Is this a current diagnosis for this admission?: Yes Plan: * Currently, on diltiazem infusion, metoprolol 5 mg IV every 6 hours. * Home antihypertensive regimen: Diovan 160/12.5, Toprol-XL 200 mg p.o. daily, Norvasc 10 mg p.o. daily. Critical Time Critical Time (minutes): 60 Level of Care: ICU -: 1. The care of a critical patient is a dynamic process. This note is a direct customer service representative synopsis but static in nature. The timeframe for treatments given in order is not necessarily the actual time these treatments may have been done. 2. This patient requires critical care secondary to ongoing requirements for therapy not offered or safe outside the critical care environment. Transfer to a lower level of care will result in altered life or limb morbidity and mortality. 3. Multidisciplinary rounds completed. 4. ABCDE bundle addressed.
[2020-06-03 19:45] LABS: ARTERIAL BLOOD BASE EXCESS -2.1 mmol/L; ARTERIAL BLOOD FIO2 100%; ARTERIAL BLOOD H2CO3 1.38 mmol/L (1.05-1.35); ARTERIAL BLOOD HCO3 23.9 mmol/L (20-24); ARTERIAL BLOOD O2 SATURATION 73.5 % (94-98); ARTERIAL BLOOD PCO2 45.7 mmHg (35-45); ARTERIAL BLOOD PH 7.34 (7.35-7.45); ARTERIAL BLOOD PO2 41.4 mmHg (80-100); ARTERIAL BLOOD TOTAL CO2 25.3 mmol/L (23-27)
[2020-06-03] MEDS: MELATONIN 5 MG TABLET PO SCH (21:06)
--- NOTE | 2020-06-03 21:33 | PDOC PROGRESS REPORT ---
Subjective Date:: 06/03/20 Subjective:: Patient seen by the bedside he was obviously in distress, using all accessory mu scles of breathing despite being on BiPAP, he has ARDS from SARS-CoV-2 infection, patient needed to go to the unit for trach intubation, I spoke to the strategic marketing manager, he will be transferred to ICU. The nurses has invoked multiple BUSINESS OWNER/ENGINEER calls to bedside Reason For Visit: COVID PNEUMONIA, HTN Physical Exam Vital Signs: Temp Pulse Resp BP Pulse Ox 97.8 F 116 H 38 H 143/80 H 81 L 06/03/20 20:11 06/03/20 18:00 06/03/20 18:08 06/03/20 18:08 06/03/20 18:08 Intake & Output 06/02/20 06/03/20 06/04/20 06:59 06:59 06:59 Intake Total 792 577 Output Total 1425 8358 300 Balance -1236 -8505 277 Weight 89.1 kg 88.6 kg 84.5 kg General appearance: PRESENT: severe distress Respiratory exam: PRESENT: accessory muscle use, retraction Cardiovascular exam: PRESENT: +S1, +S2 Results Laboratory Results: 06/02/20 05:10 06/03/20 06:30 06/03/20 06/03/20 06/03/20 06:30 06:30 06:30 Carbonic Acid HCO3/H2CO3 Ratio ABG pH ABG pCO2 ABG pO2 ABG HCO3 ABG O2 Saturation ABG Base Excess FiO2 Sodium 141.8 Potassium 4.4 Chloride 106 Carbon Dioxide 29 Anion Gap 7 BUN 31 H Creatinine 0.71 Est GFR ( Amer) > 60 Glucose 210 H Calcium 8.5 Phosphorus 2.8 Total Bilirubin 0.7 AST 25 Alkaline Phosphatase 119 C-Reactive Protein 146.0 H Total Protein 5.7 L Albumin 2.4 L Prealbumin 13.9 L Urine Color DARK YELLOW Urine Appearance CLOUDY Urine pH 5.0 Ur Specific [place] 1.019 Urine Protein 30 H Urine Glucose (UA) NEGATIVE Urine Ketones NEGATIVE Urine Blood LARGE H Urine Nitrite NEGATIVE Ur Leukocyte Esterase MODERATE H Urine WBC (Auto) 73 Urine RBC (Auto) >182 06/03/20 06/03/20 12:13 19:25 Carbonic Acid 1.02 L 1.38 H HCO3/H2CO3 Ratio 17:1 17:1 ABG pH 7.33 L 7.34 L ABG pCO2 33.9 L 45.7 H ABG pO2 50.6 L 41.4 L ABG HCO3 17.5 L 23.9 ABG O2 Saturation 83.8 L 73.5 L ABG Base Excess -7.4 -2.1 FiO2 100% 100% Sodium Potassium Chloride Carbon Dioxide Anion Gap BUN Creatinine Est GFR ( Amer) Glucose Calcium Phosphorus Total Bilirubin AST Alkaline Phosphatase C-Reactive Protein Total Protein Albumin Prealbumin Urine Color Urine Appearance Urine pH Ur Specific [place] Urine Protein Urine Glucose (UA) Urine Ketones Urine Blood Urine Nitrite Ur Leukocyte Esterase Urine WBC (Auto) Urine RBC (Auto) 05/22/20 06/01/20 16:22 13:34 Troponin I 0.029 0.141 NT-Pro-B Natriuret Pep 510 H Impressions: Abdomen/Pelvis CT 05/22/20 17:23 IMPRESSION: Mild basilar atelectasis or infiltration, greater on the right. No acute abnormality is seen within the abdomen or pelvis. Additional, chronic-appearing findings are noted as above. TECHNICAL DOCUMENTATION: Quality ID # 436: Final reports with documentation of one or more dose reduction techniques (e.g., Automated exposure control, adjustment of the mA and/or kV according to patient size, use of iterative reconstruction technique) copyright 2011 [email or web address]- All Rights Reserved Chest CT 05/26/20 00:00 IMPRESSION: Diffuse bilateral ground-glass opacities consistent with either edema, atelectasis or pneumonia. Extensive centrilobular emphysematous changes. Probable underlying pulmonary fibrosis. Peripancreatic inflammatory changes suspicious for pancreatitis new from prior exam. Hyperattenuating lesion in the right kidney most likely hemorrhagic cyst. Guidance Fluoroscopy 05/29/20 00:00 IMPRESSION: Successful placement of upper extremity PICC line using ultrasound guidance. Interventional Vascular Procedure 05/29/20 00:00 IMPRESSION: Successful placement of upper extremity PICC line using ultrasound guidance. PICC Line Insertion 05/29/20 00:00 IMPRESSION: Successful placement of upper extremity PICC line using ultrasound guidance. PICC Line Exchange 06/03/20 00:00 IMPRESSION: SUCCESSFUL OVER THE WIRE REPLACEMENT OF AN EXISTING PICC FOR A NEW ONE THAT IS 5 FR DUAL LUMEN 41 CM PICC IN THE RIGHT ARM. Chest X-Ray 06/03/20 15:34 IMPRESSION: PICC line has been pulled back into the axillary vein. Assessment & Plan - Diagnosis (1) Acute hypoxemic respiratory failure Is this a current diagnosis for this admission?: Yes (2) COVID-19 virus infection Is this a current diagnosis for this admission?: Yes (3) Anorexia Is this a current diagnosis for this admission?: Yes (4) Pneumonia Qualifiers: Pneumonia type: due to unspecified organism Laterality: bilateral Lung location: lower lobe of lung Qualified Code(s): J18.9 - Pneumonia, unspecified organism Is this a current diagnosis for this admission?: Yes (5) Chronic obstructive pulmonary disease (COPD) Qualifiers: COPD type: emphysema Emphysema type: centrilobular Qualified Code(s): J43.2 - Centrilobular emphysema Is this a current diagnosis for this admission?: Yes (6) Pancreatitis Qualifiers: Chronicity: acute Pancreatitis type: unspecified pancreatitis type Acute pancreatitis complication: unspecified Qualified Code(s): K85.90 - Acute pancreatitis without necrosis or infection, unspecified Is this a current diagnosis for this admission?: Yes (7) Atrial fibrillation with rapid ventricular response Is this a current diagnosis for this admission?: Yes (8) Elevated d-dimer Is this a current diagnosis for this admission?: Yes (9) ARDS (adult respiratory distress syndrome) Is this a current diagnosis for this admission?: Yes - Time Time Spent with patient: 35 or more minutes Level of Care: IMCU Medications reviewed and adjusted accordingly: Yes Anticipated discharge: Other Anticipated DC Timeframe: Other - Plan Summary Plan Summary: Patient be transferred to intensive care unit for further care
[2020-06-04] MEDS ORDERED: PROPOFOL 1,000 MG/100 ML INFUS..BTL IV ONE (00:08)
[2020-06-04 00:46] LABS: ARTERIAL BLOOD BASE EXCESS 1.1 mmol/L; ARTERIAL BLOOD FIO2 100%; ARTERIAL BLOOD H2CO3 2.03 mmol/L (1.05-1.35); ARTERIAL BLOOD HCO3 30.1 mmol/L (20-24); ARTERIAL BLOOD O2 SATURATION 33.3 % (94-98); ARTERIAL BLOOD PCO2 67.6 mmHg (35-45); ARTERIAL BLOOD PH 7.27 (7.35-7.45); ARTERIAL BLOOD TOTAL CO2 32.1 mmol/L (23-27)
[2020-06-04 00:48] LABS: ARTERIAL BLOOD PO2 23.7 mmHg (80-100)
[2020-06-04] MEDS ORDERED: PHARMACY COMMUNICATION ORDER MC NR (01:00)
--- NOTE | 2020-06-04 01:03 | RADIOLOGY REPORT (SQ) ---
EXAM DESCRIPTION: XR CHEST 1 VIEW COMPLETED DATE/TME: 06/04/2020 00:40 CLINICAL HISTORY: 84 years, Male, intubation COMPARISON: 06/03/2020 chest NUMBER OF VIEWS: 1 TECHNIQUE: Portable chest LIMITATIONS: None. FINDINGS: Interval intubation. The endotracheal tube is 5 cm above the walt. Advancement of a right PICC catheter, the tip is in the SVC. No pneumothorax. Heart size stable. Interstitial and airspace opacities bilaterally. IMPRESSION: Endotracheal tube tip 5 cm above the walt. Right PICC catheter tip in the SVC. Other findings are stable copyright 2011 [employer]- All Rights Reserved
[2020-06-04] MEDS: PROPOFOL 1,000 MG/100 ML INFUS..BTL IV PRN ×3 (01:10→15:09)
[2020-06-04] MEDS: DEXAMETHASONE SOD PHOS INJ 10 MG/1 ML VIAL IV SCH ×3 (01:33→21:39)
[2020-06-04] MEDS ORDERED: ACETAMINOPHEN 325 MG TABLET NG PRN (02:00)
[2020-06-04 02:29] LABS: ARTERIAL BLOOD BASE EXCESS 0.2 mmol/L; ARTERIAL BLOOD H2CO3 1.83 mmol/L (1.05-1.35); ARTERIAL BLOOD HCO3 28.3 mmol/L (20-24); ARTERIAL BLOOD O2 SATURATION 79.1 % (94-98); ARTERIAL BLOOD PCO2 60.7 mmHg (35-45); ARTERIAL BLOOD PH 7.29 (7.35-7.45); ARTERIAL BLOOD TOTAL CO2 30.1 mmol/L (23-27)
[2020-06-04] MEDS: DILTIAZEM HCL/D5W 125 MG/125 ML RTUINJ IV PRN (02:33)
[2020-06-04 02:34] LABS: ARTERIAL BLOOD FIO2 100%
[2020-06-04] MEDS ORDERED: ROCURONIUM BROMIDE INJ 50 MG/5 ML VIAL IV ONE (02:40)
[2020-06-04] MEDS ORDERED: ETOMIDATE INJ/PF 20 MG/10 ML SDV IV ONE (02:40)
--- NOTE | 2020-06-04 03:06 | RADIOLOGY REPORT (SQ) ---
EXAM DESCRIPTION: XR ABDOMEN 1 VIEW (KUB) COMPLETED DATE/TME: 06/04/2020 02:28 CLINICAL HISTORY: 84 years, Male, Check Placement of NG Tube COMPARISON: 06/03/2020 chest NUMBER OF VIEWS: 1 TECHNIQUE: Portable abdomen LIMITATIONS: None. FINDINGS: Tip of the enteric tube in the stomach. Endotracheal tube also in place. Right PICC catheter in place. Bowel gas pattern nonspecific IMPRESSION: Tip of the enteric tube in the stomach copyright 2011 [employer]- All Rights Reserved
[2020-06-04] MEDS: METOPROLOL TARTRATE PF/INJ 5 MG/5 ML SDV IV SCH ×3 (03:53→16:05)
[2020-06-04] MEDS: INSULIN REG, HUMAN 100 UNIT/ML 3 ML VIAL (PYX) SUBCUT SCH ×3 (06:21→18:51)
--- NOTE | 2020-06-04 06:40 | Operative Report ---
Bedside Procedure - History of Present Illness Indication for Procedure: hypoxemic respiratory failure Date: 06/04/20 Provider: PAMELA SEGURA - Intubation Orotracheal Airway evaluation: Normal anatomy Mallampati Classification: Class 1 Medications: Etomidate, Other - rocuronium Intubation method: Orotracheal Blade type: Rosalba Blade size: 4 ETT size: 7.5 ETT secured at: Teeth ETT secured at (cm): 24 Post Intubation Xray: Yes Intubation Complications: No complications
[2020-06-04 07:15] LABS: PARTIAL THROMBOPLASTIN TIME 90.8 SEC (23.5-35.8)
[2020-06-04 07:16] LABS: D-DIMER 2.69 ug/mL (0.00-0.50)
[2020-06-04] MEDS: BUDESONIDE NEB 0.25 MG/2 ML AMPUL NEB SCH ×2 (08:21→21:12)
[2020-06-04] MEDS: LEVALBUTEROL HCL NEB 1.25 MG/3 ML AMPUL NEB PRN ×2 (08:21→21:11)
[2020-06-04 09:19] LABS: HEMATOCRIT 39.9 % (37.9-51.0); MEAN CORPUSCULAR HEMOGLOBIN 26.8 pg (27.0-33.4); MEAN CORPUSCULAR HGB CONC 32.6 g/dL (32.0-36.0); MEAN CORPUSCULAR VOLUME 82 fl (80-97); PLATELET COUNT 155 10^3/uL (150-450); RED BLOOD COUNT 4.85 10^6/uL (4.35-5.55); RED CELL DISTRIBUTION WIDTH 17.7 % (11.5-14.0); WHITE BLOOD COUNT 17.6 10^3/uL (4.0-10.5)
--- NOTE | 2020-06-04 09:40 | PDOC CRITICAL CARE PROG REPORT ---
General Date:: 06/04/20 ICU Day:: 3 Ventilator Day:: 3 Hospital Day:: 12 Resuscitation Status: Full Code Events in the past 12 to 24 Hours:: This 84-year-old -Irish male was originally admitted on 05/22/2020 wi th a confirmed diagnosis of COVID-19 pneumonia. He was admitted to [facility] by Dr. Joaquin. On 06/01/2020, the patient was seen after a call from the rapid response team, which had responded for worsening hypoxia. At that time, the patient was found to be in atrial fibrillation with rapid ventricular response. He demonstrated prompt improvement in blood pressure and oxygen saturation with rate control. He was briefly transferred to the ICU service but was found to be stable on CPAP and transferred back to Dr. Joaquin service. Today, Dr. Joaquin called back with concerns that the patient needed endotracheal intubation. Rapid response team had been called multiple times to assess the pa tient in the interim. Again, this morning rapid response team was called for worsening hypoxia. 06/03: The patient was transferred to ICU for acute hypoxemic respiratory failure. At the time of clinical interview, the patient is lethargic but arousable. He does follow commands. He is noted to be on CPAP 22 with an SPO2 in the 80s. ABG obtained at 1213: pH 7.33, PCO2 34, PO2 51. Heparin drip was placed on hold for transport to the ICU. On scheduled metoprolol IV along with Cardizem infusion for rate control of atrial fibrillation. Remains on TPN; however, he is partially removed his PICC line. 06/04: Pulmonary decompensation needing intubation earlier this AM Review of systems relevant to events:: Pulmonary Reason for ICU Addmission:: Acute hypoxemic respiratory failure; COVID-19 pneumonia; atrial fibrillation with rapid ventricular response. Now intubated. - Medications: Medications reviewed and adjusted accordingly: Yes Vasopressors:: None Sedation:: Propofol. Physical Exam Vital Signs: Temp Pulse Resp BP Pulse Ox 97.8 F 103 H 30 H 143/80 H 94 06/04/20 08:00 06/04/20 04:00 06/04/20 04:00 06/03/20 18:08 06/04/20 04:00 Intake & Output 06/03/20 06/04/20 06/05/20 06:59 06:59 06:59 Intake Total 792 749 Output Total 1999 965 160 [facility] -1208 -216 -160 Weight 88.6 kg 81 kg Weight/Height Weight 81 kg Height 5 ft 7 in General appearance: PRESENT: no acute distress Head exam: PRESENT: atraumatic, normocephalic Eye exam: PRESENT: conjunctiva pink, EOMI, PERRLA. ABSENT: scleral icterus Ear exam: PRESENT: normal external ear exam Mouth exam: PRESENT: moist, tongue midline Respiratory exam: PRESENT: accessory muscle use, clear to auscultation sherin, decreased breath sounds. ABSENT: rales, rhonchi, wheezes Cardiovascular exam: PRESENT: RRR, tachycardia. ABSENT: diastolic murmur, rubs, systolic murmur GI/Abdominal exam: PRESENT: normal bowel sounds, soft. ABSENT: distended, guarding, mass, organolmegaly, rebound, tenderness Rectal exam: PRESENT: deferred Gentrourinary exam: PRESENT: indwelling catheter Extremities exam: PRESENT: full ROM. ABSENT: calf tenderness, clubbing, pedal edema Musculoskeletal exam: PRESENT: normal inspection Neurological exam: PRESENT: other - Sedated Skin exam: PRESENT: dry, intact, warm. ABSENT: cyanosis, rash Tubes/Lines: PRESENT: Endotracheal Tube, Central Line, Nasogastic Tube Laboratory/Radiographs Laboratory Results: 06/04/20 08:55 06/03/20 06/03/20 06/03/20 06:30 06:30 12:13 WBC RBC Hgb Hct MCV MCH MCHC RDW Plt Count Carbonic Acid 1.02 L HCO3/H2CO3 Ratio 17:1 ABG pH 7.33 L ABG pCO2 33.9 L ABG pO2 50.6 L ABG HCO3 17.5 L ABG O2 Saturation 83.8 L ABG Base Excess -7.4 FiO2 100% C-Reactive Protein 146.0 H Urine Color DARK YELLOW Urine Appearance CLOUDY Urine pH 5.0 Ur Specific [place] 1.019 Urine Protein 30 H Urine Glucose (UA) NEGATIVE Urine Ketones NEGATIVE Urine Blood LARGE H Urine Nitrite NEGATIVE Ur Leukocyte Esterase MODERATE H Urine WBC (Auto) 73 Urine RBC (Auto) >182 06/03/20 06/04/20 06/04/20 19:25 00:28 02:08 WBC RBC Hgb Hct MCV MCH MCHC RDW Plt Count Carbonic Acid 1.38 H 2.03 H 1.83 H HCO3/H2CO3 Ratio 17:1 14:1 15:1 ABG pH 7.34 L 7.27 L 7.29 L ABG pCO2 45.7 H 67.6 H 60.7 H ABG pO2 41.4 L 23.7 L* 49.0 L ABG HCO3 23.9 30.1 H 28.3 H ABG O2 Saturation 73.5 L 33.3 L 79.1 L ABG Base Excess -2.1 1.1 0.2 FiO2 100% 100% 100% C-Reactive Protein Urine Color Urine Appearance Urine pH Ur Specific [place] Urine Protein Urine Glucose (UA) Urine Ketones Urine Blood Urine Nitrite Ur Leukocyte Esterase Urine WBC (Auto) Urine RBC (Auto) 06/04/20 06/04/20 06:03 08:55 WBC 17.6 H RBC 4.85 Hgb 13.0 L Hct 39.9 MCV 82 MCH 26.8 L MCHC 32.6 RDW 17.7 H Plt Count 155 Carbonic Acid HCO3/H2CO3 Ratio ABG pH ABG pCO2 ABG pO2 ABG HCO3 ABG O2 Saturation ABG Base Excess FiO2 C-Reactive Protein 78.4 H Urine Color Urine Appearance Urine pH Ur Specific [place] Urine Protein Urine Glucose (UA) Urine Ketones Urine Blood Urine Nitrite Ur Leukocyte Esterase Urine WBC (Auto) Urine RBC (Auto) 05/22/20 06/01/20 16:22 13:34 Troponin I 0.029 0.141 NT-Pro-B Natriuret Pep 510 H Impressions: Abdomen/Pelvis CT 05/22/20 17:23 IMPRESSION: Mild basilar atelectasis or infiltration, greater on the right. No acute abnormality is seen within the abdomen or pelvis. Additional, chronic-appearing findings are noted as above. TECHNICAL DOCUMENTATION: Quality ID # 436: Final reports with documentation of one or more dose reduction techniques (e.g., Automated exposure control, adjustment of the mA and/or kV according to patient size, use of iterative reconstruction technique) copyright 2011 [employer]- All Rights Reserved Chest CT 05/26/20 00:00 IMPRESSION: Diffuse bilateral ground-glass opacities consistent with either edema, atelectasis or pneumonia. Extensive centrilobular emphysematous changes. Probable underlying pulmonary fibrosis. Peripancreatic inflammatory changes suspicious for pancreatitis new from prior exam. Hyperattenuating lesion in the right kidney most likely hemorrhagic cyst. Guidance Fluoroscopy 05/29/20 00:00 IMPRESSION: Successful placement of upper extremity PICC line using ultrasound guidance. Interventional Vascular Procedure 05/29/20 00:00 IMPRESSION: Successful placement of upper extremity PICC line using ultrasound guidance. PICC Line Insertion 05/29/20 00:00 IMPRESSION: Successful placement of upper extremity PICC line using ultrasound guidance. PICC Line Exchange 06/03/20 00:00 IMPRESSION: SUCCESSFUL OVER THE WIRE REPLACEMENT OF AN EXISTING PICC FOR A NEW ONE THAT IS 5 FR DUAL LUMEN 41 CM PICC IN THE RIGHT ARM. Chest X-Ray 06/04/20 00:00 IMPRESSION: Endotracheal tube tip 5 cm above the walt. Right PICC catheter tip in the SVC. Other findings are stable copyright 2010 [employer]- All Rights Reserved KUB X-Ray 06/04/20 00:46 IMPRESSION: Tip of the enteric tube in the stomach copyright 2010 [employer]- All Rights Reserved All labs, radiographs, diagnostic studies and EKGs were personally reviewed: Yes In addition, reports of radiographic and diagnostic studies were read: Yes Assessment and Plan - Diagnosis (1) Pneumonia due to COVID-19 virus Is this a current diagnosis for this admission?: Yes Plan: At the age of 84, with HTN, he is at higher risk for mortality. I see his vent course being somewhat prolonged. (2) Atrial fibrillation with rapid ventricular response Is this a current diagnosis for this admission?: Yes Plan: He is now in SR and at a rate of 103, since intubation. (3) HTN (hypertension) Is this a current diagnosis for this admission?: Yes Plan: Controlled Plan Summary: Change TPN to TF now that he is intubated with an NG Critical Time Critical Time (minutes): 35 Level of Care: ICU Anticipated discharge: SNF Anticipated DC Timeframe: Other -: 1. The care of a critical patient is a dynamic process. This note is a uniforms sales representative synopsis but static in nature. The timeframe for treatments given in order is not necessarily the actual time these treatments may have been done. 2. This patient requires critical care secondary to ongoing requirements for therapy not offered or safe outside the critical care environment. Transfer to a lower level of care will result in altered life or limb morbidity and mortal ity. 3. Multidisciplinary rounds completed. 4. ABCDE bundle addressed.
[2020-06-04 09:46] LABS: ANION GAP 5 (5-19); BLOOD UREA NITROGEN 47 mg/dL (7-20); CARBON DIOXIDE 30 mmol/L (22-30); CHLORIDE 115 mmol/L (98-107); GLUCOSE 212 mg/dL (75-110)
[2020-06-04] MEDS: AMLODIPINE BESYLATE 10 MG TABLET NG SCH (10:40)
[2020-06-04] MEDS: FINASTERIDE 5 MG TABLET PO SCH (10:40)
[2020-06-04] MEDS: ASCORBIC ACID 500 MG TABLET NG SCH ×2 (10:40→18:46)
[2020-06-04] MEDS: NORMAL SALINE 10 ML SDV (SCHEDULED) IV SCH ×2 (10:41→21:39)
[2020-06-04] MEDS: ASPIRIN 81 MG TABLET, CHEWABLE NG SCH (10:41)
[2020-06-04] MEDS: TAMSULOSIN HCL 0.4 MG CAP.SR.24H PO SCH (10:41)
[2020-06-04] MEDS: CHOLECALCIFEROL (D3) 1,000 UNIT (25 MCG) TABLET NG SCH (12:33)
[2020-06-04] MEDS: ZINC SULFATE 220 MG CAPSULE NG SCH (12:33)
[2020-06-04] MEDS: HEPARIN SODIUM,PORCINE/D5W 25,000 UNIT/250 ML RTUINJ IV PRN (13:20)
[2020-06-04] MEDS: PANTOPRAZOLE SODIUM 40 MG VIAL IV SCH (15:10)
[2020-06-04] MEDS: METOPROLOL TARTRATE 50 MG TABLET PO SCH ×2 (15:10→21:35)
[2020-06-04 18:19] LABS: ABSOLUTE LYMPHOCYTES# (MANUAL) 0.4 10^3/uL (0.5-4.7); ABSOLUTE MONOCYTES # (MANUAL) 0.2 10^3/uL (0.1-1.4); BAND NEUTROPHILS % (MANUAL) 1 % (3-5); BASOPHILS % (MANUAL) 0 % (0-2); EOSINOPHILS % (MANUAL) 0 % (0-6); LYMPHOCYTES % (MANUAL) 2 % (13-45); MONOCYTES % (MANUAL) 1 % (3-13); SEGMENTED NEUTROPHILS % (MAN) 96 % (42-78); TOTAL CELLS COUNTED 100
[2020-06-04 18:21] LABS: ANISOCYTOSIS 1+; BURR CELLS 1+; OVALOCYTES SLIGHT; PLATELET COMMENT ADEQUATE; POIKILOCYTOSIS 1+; SCHISTOCYTES SLIGHT
[2020-06-04 18:23] LABS: TOXIC VACUOLATION PRESENT
[2020-06-04] MEDS: MELATONIN 5 MG TABLET NG SCH (22:38)
[2020-06-05] MEDS: INSULIN REG, HUMAN 100 UNIT/ML 3 ML VIAL (PYX) SUBCUT SCH ×5 (00:31→23:32)
[2020-06-05] MEDS: METOPROLOL TARTRATE PF/INJ 5 MG/5 ML SDV IV SCH ×4 (00:32→18:51)
[2020-06-05] MEDS: PROPOFOL 1,000 MG/100 ML INFUS..BTL IV PRN ×2 (06:00→16:30)
[2020-06-05] MEDS: HEPARIN SODIUM,PORCINE/D5W 25,000 UNIT/250 ML RTUINJ IV PRN (06:45)
[2020-06-05] MEDS: LEVALBUTEROL HCL NEB 1.25 MG/3 ML AMPUL NEB PRN ×2 (08:07→20:46)
[2020-06-05] MEDS: BUDESONIDE NEB 0.25 MG/2 ML AMPUL NEB SCH ×2 (08:07→20:46)
[2020-06-05] MEDS: ASPIRIN 81 MG TABLET, CHEWABLE NG SCH (10:03)
[2020-06-05] MEDS: METOPROLOL TARTRATE 50 MG TABLET PO SCH ×2 (10:03→21:40)
[2020-06-05] MEDS: AMLODIPINE BESYLATE 10 MG TABLET NG SCH (10:04)
[2020-06-05] MEDS: TAMSULOSIN HCL 0.4 MG CAP.SR.24H PO SCH (10:04)
[2020-06-05] MEDS: CHOLECALCIFEROL (D3) 1,000 UNIT (25 MCG) TABLET NG SCH (10:04)
[2020-06-05] MEDS: FINASTERIDE 5 MG TABLET PO SCH (10:05)
[2020-06-05] MEDS: PANTOPRAZOLE SODIUM 40 MG VIAL IV SCH (10:05)
[2020-06-05] MEDS: ASCORBIC ACID 500 MG TABLET NG SCH ×2 (10:05→18:50)
[2020-06-05] MEDS: DEXAMETHASONE SOD PHOS INJ 10 MG/1 ML VIAL IV SCH ×2 (10:05→21:40)
[2020-06-05] MEDS: NORMAL SALINE 10 ML SDV (SCHEDULED) IV SCH ×2 (10:24→21:41)
[2020-06-05] MEDS: MELATONIN 5 MG TABLET NG SCH (21:40)
[2020-06-06] MEDS: METOPROLOL TARTRATE PF/INJ 5 MG/5 ML SDV IV SCH ×4 (00:17→17:42)
[2020-06-06] MEDS: PROPOFOL 1,000 MG/100 ML INFUS..BTL IV PRN ×5 (00:18→23:50)
[2020-06-06] MEDS: HEPARIN SODIUM,PORCINE/D5W 25,000 UNIT/250 ML RTUINJ IV PRN ×2 (02:25→23:49)
[2020-06-06] MEDS ORDERED: DEXTROSE 5%-WATER 250 ML with NOREPINEPHRINE BITARTRATE 4 MG IV PRN ×2 (03:07)
[2020-06-06] MEDS: INSULIN REG, HUMAN 100 UNIT/ML 3 ML VIAL (PYX) SUBCUT SCH ×4 (05:30→23:48)
[2020-06-06 06:26] LABS: PARTIAL THROMBOPLASTIN TIME 76.3 SEC (23.5-35.8)
[2020-06-06 06:28] LABS: D-DIMER 1.34 ug/mL (0.00-0.50)
[2020-06-06] MEDS: LEVALBUTEROL HCL NEB 1.25 MG/3 ML AMPUL NEB PRN ×2 (08:01→19:59)
[2020-06-06] MEDS: BUDESONIDE NEB 0.25 MG/2 ML AMPUL NEB SCH ×2 (08:01→19:59)
[2020-06-06] MEDS: PANTOPRAZOLE SODIUM 40 MG VIAL IV SCH (09:30)
[2020-06-06] MEDS: DEXAMETHASONE SOD PHOS INJ 10 MG/1 ML VIAL IV SCH ×2 (09:30→21:34)
[2020-06-06] MEDS: ASCORBIC ACID 500 MG TABLET NG SCH ×2 (09:31→17:42)
[2020-06-06] MEDS: ASPIRIN 81 MG TABLET, CHEWABLE NG SCH (09:31)
[2020-06-06] MEDS: CHOLECALCIFEROL (D3) 1,000 UNIT (25 MCG) TABLET NG SCH (09:31)
[2020-06-06] MEDS: NORMAL SALINE 10 ML SDV (SCHEDULED) IV SCH ×2 (09:32→21:35)
[2020-06-06] MEDS: TAMSULOSIN HCL 0.4 MG CAP.SR.24H PO SCH (09:32)
[2020-06-06] MEDS: FINASTERIDE 5 MG TABLET PO SCH (09:33)
[2020-06-06] MEDS: AMLODIPINE BESYLATE 10 MG TABLET NG SCH (09:33)
[2020-06-06 10:36] LABS: ARTERIAL BLOOD FIO2 100%; ARTERIAL BLOOD H2CO3 1.37 mmol/L (1.05-1.35); ARTERIAL BLOOD HCO3 24.8 mmol/L (20-24); ARTERIAL BLOOD O2 SATURATION 95.4 % (94-98); ARTERIAL BLOOD PCO2 45.5 mmHg (35-45); ARTERIAL BLOOD PH 7.35 (7.35-7.45); ARTERIAL BLOOD PO2 80.6 mmHg (80-100); ARTERIAL BLOOD TOTAL CO2 26.2 mmol/L (23-27)
[2020-06-06 10:38] LABS: HEMATOCRIT 40.2 % (37.9-51.0); HEMOGLOBIN 13.2 g/dL (13.5-17.0); MEAN CORPUSCULAR HEMOGLOBIN 27.3 pg (27.0-33.4); MEAN CORPUSCULAR HGB CONC 32.8 g/dL (32.0-36.0); MEAN CORPUSCULAR VOLUME 83 fl (80-97); PLATELET COUNT 169 10^3/uL (150-450); RED BLOOD COUNT 4.83 10^6/uL (4.35-5.55); RED CELL DISTRIBUTION WIDTH 17.8 % (11.5-14.0)
[2020-06-06 11:11] LABS: ABSOLUTE LYMPHOCYTES# (MANUAL) 0.2 10^3/uL (0.5-4.7); ABSOLUTE MONOCYTES # (MANUAL) 0.2 10^3/uL (0.1-1.4); BASOPHILS % (MANUAL) 0 % (0-2); EOSINOPHILS % (MANUAL) 0 % (0-6); LYMPHOCYTES % (MANUAL) 1 % (13-45); MONOCYTES % (MANUAL) 1 % (3-13); SEGMENTED NEUTROPHILS % (MAN) 98 % (42-78); TOTAL CELLS COUNTED 100
[2020-06-06 11:12] LABS: ANISOCYTOSIS 1+
[2020-06-06 11:13] LABS: OVALOCYTES SLIGHT; PLATELET CLUMPS PRESENT; PLATELET COMMENT ADEQUATE; TARGET CELLS SLIGHT
--- NOTE | 2020-06-06 11:41 | PDOC CRITICAL CARE PROG REPORT ---
General Date:: 06/05/20 ICU Day:: 4 Ventilator Day:: 2 Hospital Day:: 13 Resuscitation Status: Full Code Events in the past 12 to 24 Hours:: This 84-year-old -[place] male was originally admitted on 05/22/2020 wi th a confirmed diagnosis of COVID-19 pneumonia. He was admitted to [facility] by Dr. Joaquin. On 06/01/2020, the patient was seen after a call from the rapid response team, which had responded for worsening hypoxia. At that time, the patient was found to be in atrial fibrillation with rapid ventricular response. He demonstrated prompt improvement in blood pressure and oxygen saturation with rate control. He was briefly transferred to the ICU service but was found to be stable on CPAP and transferred back to Dr. Joaquin service. Today, Dr. Joaquin called back with concerns that the patient needed endotracheal intubation. Rapid response team had been called multiple times to assess the pa tient in the interim. Again, this morning rapid response team was called for worsening hypoxia. 06/03: The patient was transferred to ICU for acute hypoxemic respiratory failure. At the time of clinical interview, the patient is lethargic but arousable. He does follow commands. He is noted to be on CPAP 22 with an SPO2 in the 80s. ABG obtained at 1213: pH 7.33, PCO2 34, PO2 51. Heparin drip was placed on hold for transport to the ICU. On scheduled metoprolol IV along with Cardizem infusion for rate control of atrial fibrillation. Remains on TPN; however, he is partially removed his PICC line. 06/04: Pulmonary decompensation needing intubation earlier this AM 06/05: No significant change in respiratory status. Review of systems relevant to events:: Pulmonary. Reason for ICU Addmission:: Acute hypoxemic respiratory failure; COVID-19 pneumonia; atrial fibrillation with rapid ventricular response. Now intubated. - Medications: Medications reviewed and adjusted accordingly: Yes Vasopressors:: None Sedation:: Propofol. Physical Exam Vital Signs: Temp Pulse Resp BP Pulse Ox 97.6 F 89 29 H 116/76 92 06/05/20 08:00 06/05/20 08:00 06/05/20 08:00 06/05/20 08:00 06/05/20 08:00 Intake & Output 06/04/20 06/05/2006/06/21 06:59 06:59 06:59 Intake Total 749 1114 0 Output Total 965 1185 0 Balance -216 -71 0 Weight 81 kg 81 kg Weight/Height Weight 81 kg Height 5 ft 7 in General appearance: PRESENT: no acute distress Head exam: PRESENT: atraumatic, normocephalic Eye exam: PRESENT: conjunctiva pink, EOMI, PERRLA. ABSENT: scleral icterus Ear exam: PRESENT: normal external ear exam Mouth exam: PRESENT: moist, tongue midline Respiratory exam: PRESENT: clear to auscultation sherin, rhonchi - Slight. ABSENT: rales, wheezes Cardiovascular exam: PRESENT: RRR. ABSENT: diastolic murmur, rubs, systolic murmur GI/Abdominal exam: PRESENT: normal bowel sounds, soft. ABSENT: distended, guarding, mass, organolmegaly, rebound, tenderness Rectal exam: PRESENT: deferred Gentrourinary exam: PRESENT: indwelling catheter Extremities exam: PRESENT: full ROM. ABSENT: calf tenderness, clubbing, pedal edema Musculoskeletal exam: PRESENT: normal inspection Neurological exam: PRESENT: other - Sedated. Skin exam: PRESENT: dry, intact, warm. ABSENT: cyanosis, rash Tubes/Lines: PRESENT: Endotracheal Tube, Central Line, Nasogastic Tube Laboratory/Radiographs Laboratory Results: 06/04/20 08:55 06/04/20 06:03 06/04/20 06/04/20 06:03 08:55 WBC 17.6 H RBC 4.85 Hgb 13.0 L Hct 39.9 MCV 82 MCH 26.8 L MCHC 32.6 RDW 17.7 H Plt Count 155 Seg Neutrophils % Not Reportable Sodium 149.9 H Potassium 5.0 Chloride 115 H Carbon Dioxide 30 Anion Gap 5 BUN 47 H Creatinine 1.04 Est GFR ( Amer) > 60 Glucose 212 H Calcium 9.0 05/22/20 06/01/20 16:22 13:34 Troponin I 0.029 0.141 NT-Pro-B Natriuret Pep 510 H Impressions: Abdomen/Pelvis CT 05/22/20 17:23 IMPRESSION: Mild basilar atelectasis or infiltration, greater on the right. No acute abnormality is seen within the abdomen or pelvis. Additional, chronic-appearing findings are noted as above. TECHNICAL DOCUMENTATION: Quality ID # 436: Final reports with documentation of one or more dose reduction techniques (e.g., Automated exposure control, adjustment of the mA and/or kV according to patient size, use of iterative reconstruction technique) copyright 2011 [employer]- All Rights Reserved Chest CT 05/26/20 00:00 IMPRESSION: Diffuse bilateral ground-glass opacities consistent with either edema, atelectasis or pneumonia. Extensive centrilobular emphysematous changes. Probable underlying pulmonary fibrosis. Peripancreatic inflammatory changes suspicious for pancreatitis new from prior exam. Hyperattenuating lesion in the right kidney most likely hemorrhagic cyst. Guidance Fluoroscopy 05/29/20 00:00 IMPRESSION: Successful placement of upper extremity PICC line using ultrasound guidance. Interventional Vascular Procedure 05/29/20 00:00 IMPRESSION: Successful placement of upper extremity PICC line using ultrasound guidance. PICC Line Insertion 05/29/20 00:00 IMPRESSION: Successful placement of upper extremity PICC line using ultrasound guidance. PICC Line Exchange 06/03/20 00:00 IMPRESSION: SUCCESSFUL OVER THE WIRE REPLACEMENT OF AN EXISTING PICC FOR A NEW ONE THAT IS 5 FR DUAL LUMEN 41 CM PICC IN THE RIGHT ARM. Chest X-Ray 06/04/20 00:00 IMPRESSION: Endotracheal tube tip 5 cm above the awlt. Right PICC catheter tip in the SVC. Other findings are stable copyright 2010 [employer]- All Rights Reserved KUB X-Ray 06/04/20 00:46 IMPRESSION: Tip of the enteric tube in the stomach copyright 2011 [employer]- All Rights Reserved All labs, radiographs, diagnostic studies and EKGs were personally reviewed: Yes In addition, reports of radiographic and diagnostic studies were read: Yes Assessment and Plan - Diagnosis (1) Pneumonia due to COVID-19 virus Is this a current diagnosis for this admission?: Yes Plan: At his age a major risk factor for mortality. (2) Atrial fibrillation with rapid ventricular response Is this a current diagnosis for this admission?: Yes Plan: No rapid rate. Seems to be in SR this AM (3) HTN (hypertension) Is this a current diagnosis for this admission?: Yes Plan: Controlled Plan Summary: Support on vent. He is on 100%, not extubatable. Critical Time Critical Time (minutes): 35 Level of Care: ICU Anticipated discharge: Other Anticipated DC Timeframe: Other -: 1. The care of a critical patient is a dynamic process. This note is a community representative synopsis but static in nature. The timeframe for treatments given in order is not necessarily the actual time these treatments may have been done. 2. This patient requires critical care secondary to ongoing requirements for therapy not offered or safe outside the critical care environment. Transfer to a lower level of care will result in altered life or limb morbidity and mortality. 3. Multidisciplinary rounds completed. 4. ABCDE bundle addressed.
[2020-06-06 12:00] LABS: ANION GAP 9 (5-19); BLOOD UREA NITROGEN 92 mg/dL (7-20); CALCIUM 8.5 mg/dL (8.4-10.2); CARBON DIOXIDE 25 mmol/L (22-30); CHLORIDE 112 mmol/L (98-107); GLUCOSE 230 mg/dL (75-110)
[2020-06-06 12:08] LABS: POTASSIUM 6.1 mmol/L (3.6-5.0)
[2020-06-06] MEDS: METOPROLOL TARTRATE 50 MG TABLET PO SCH ×2 (13:14→21:34)
[2020-06-06] MEDS ORDERED: RINGERS SOLUTION,LACTATED 1,000 ML IV PRN (19:34)
[2020-06-06] MEDS: MELATONIN 5 MG TABLET NG SCH (21:33)
[2020-06-07] MEDS: METOPROLOL TARTRATE PF/INJ 5 MG/5 ML SDV IV SCH ×3 (00:13→11:45)
[2020-06-07] MEDS: INSULIN REG, HUMAN 100 UNIT/ML 3 ML VIAL (PYX) SUBCUT SCH ×3 (05:49→18:07)
[2020-06-07 07:36] LABS: ANION GAP 6 (5-19); BLOOD UREA NITROGEN 101 mg/dL (7-20); CARBON DIOXIDE 27 mmol/L (22-30); CHLORIDE 109 mmol/L (98-107); GLUCOSE 202 mg/dL (75-110)
[2020-06-07] MEDS: BUDESONIDE NEB 0.25 MG/2 ML AMPUL NEB SCH ×2 (07:56→20:17)
[2020-06-07] MEDS: LEVALBUTEROL HCL NEB 1.25 MG/3 ML AMPUL NEB PRN ×2 (07:56→20:17)
--- NOTE | 2020-06-07 08:10 | PDOC CRITICAL CARE PROG REPORT ---
General Date:: 06/06/20 ICU Day:: 5 Ventilator Day:: 5 Hospital Day:: 14 Resuscitation Status: Full Code Events in the past 12 to 24 Hours:: This 84-year-old -[place] male was originally admitted on 05/22/2020 wi th a confirmed diagnosis of COVID-19 pneumonia. He was admitted to [facility] by Dr. Joaquin. On 06/01/2020, the patient was seen after a call from the rapid response team, which had responded for worsening hypoxia. At that time, the patient was found to be in atrial fibrillation with rapid ventricular response. He demonstrated prompt improvement in blood pressure and oxygen saturation with rate control. He was briefly transferred to the ICU service but was found to be stable on CPAP and transferred back to Dr. Joaquin service. Today, Dr. Joaquin called back with concerns that the patient needed endotracheal intubation. Rapid response team had been called multiple times to assess the pa tient in the interim. Again, this morning rapid response team was called for worsening hypoxia. 06/03: The patient was transferred to ICU for acute hypoxemic respiratory failure. At the time of clinical interview, the patient is lethargic but arousable. He does follow commands. He is noted to be on CPAP 22 with an SPO2 in the 80s. ABG obtained at 1213: pH 7.33, PCO2 34, PO2 51. Heparin drip was placed on hold for transport to the ICU. On scheduled metoprolol IV along with Cardizem infusion for rate control of atrial fibrillation. Remains on TPN; however, he is partially removed his PICC line. 06/04: Pulmonary decompensation needing intubation earlier this AM 06/05: No significant change in respiratory status. 06/06: Still on 100%. No major change. Not extubatable. Review of systems relevant to events:: Pulmonary Reason for ICU Addmission:: Acute hypoxemic respiratory failure; COVID-19 pneumonia; atrial fibrillation with rapid ventricular response. Now intubated. - Medications: Medications reviewed and adjusted accordingly: Yes Vasopressors:: Levophed Sedation:: Propofol Physical Exam Vital Signs: Temp Pulse Resp BP Pulse Ox 97.9 F 119 H 26 H 93/66 L 93 06/06/20 10:00 06/06/20 10:00 06/06/20 10:06/06/20 10:00 06/06/20 10:00 Intake & Output 06/05/20 06/06/20 06/07/20 06:59 06:59 06:59 Intake Total 1114 1149 185 Output Total 118 875 300 Balance -71 274 -115 Weight 81 kg 90.1 kg Weight/Height Weight 90.1 kg Height 5 ft 7 in General appearance: PRESENT: no acute distress Head exam: PRESENT: atraumatic, normocephalic Eye exam: PRESENT: PERRLA Ear exam: PRESENT: normal external ear exam Mouth exam: PRESENT: moist, tongue midline Respiratory exam: PRESENT: clear to auscultation sherin. ABSENT: rales, rhonchi, wheezes Cardiovascular exam: PRESENT: RRR, tachycardia. ABSENT: diastolic murmur, rubs, systolic murmur GI/Abdominal exam: PRESENT: normal bowel sounds, soft. ABSENT: distended, guarding, mass, organolmegaly, rebound, tenderness Rectal exam: PRESENT: deferred Gentrourinary exam: PRESENT: indwelling catheter Extremities exam: PRESENT: full ROM. ABSENT: calf tenderness, clubbing, pedal edema Musculoskeletal exam: PRESENT: normal inspection Neurological exam: PRESENT: other - Not following commands. Skin exam: PRESENT: dry, intact, warm. ABSENT: cyanosis, rash Tubes/Lines: PRESENT: Endotracheal Tube, Central Line, Nasogastic Tube Laboratory/Radiographs Laboratory Results: 06/06/20 10:00 06/06/20 06/06/20 06/06/20 05:35 10:00 10:00 WBC 21.0 H RBC 4.83 Hgb 13.2 L Hct 40.2 MCV 83 MCH 27.3 MCHC 32.8 RDW 17.8 H Plt Count 169 Seg Neutrophils % Not Reportable Carbonic Acid 1.37 H HCO3/H2CO3 Ratio 18:1 ABG pH 7.35 ABG pCO2 45.5 H ABG pO2 80.6 ABG HCO3 24.8 H ABG O2 Saturation 95.4 ABG Base Excess -1.0 FiO2 100% C-Reactive Protein 43.3 H 05/22/20 06/01/20 16:22 13:34 Troponin I 0.029 0.141 NT-Pro-B Natriuret Pep 510 H Impressions: Abdomen/Pelvis CT 05/22/20 17:23 IMPRESSION: Mild basilar atelectasis or infiltration, greater on the right. No acute abnormality is seen within the abdomen or pelvis. Additional, chronic-appearing findings are noted as above. TECHNICAL DOCUMENTATION: Quality ID # 436: Final reports with documentation of one or more dose reduction techniques (e.g., Automated exposure control, adjustment of the mA and/or kV according to patient size, use of iterative reconstruction technique) copyright 2011 [employer]- All Rights Reserved Chest CT 05/26/20 00:00 IMPRESSION: Diffuse bilateral ground-glass opacities consistent with either rolan ma, atelectasis or pneumonia. Extensive centrilobular emphysematous changes. Probable underlying pulmonary fibrosis. Peripancreatic inflammatory changes suspicious for pancreatitis new from prior exam. Hyperattenuating lesion in the right kidney most likely hemorrhagic cyst. Guidance Fluoroscopy 05/29/20 00:00 IMPRESSION: Successful placement of upper extremity PICC line using ultrasound guidance. Interventional Vascular Procedure 05/29/20 00:00 IMPRESSION: Successful placement of upper extremity PICC line using ultrasound guidance. PICC Line Insertion 05/29/20 00:00 IMPRESSION: Successful placement of upper extremity PICC line using ultrasound guidance. PICC Line Exchange 06/03/20 00:00 IMPRESSION: SUCCESSFUL OVER THE WIRE REPLACEMENT OF AN EXISTING PICC FOR A NEW ONE THAT IS 5 FR DUAL LUMEN 41 CM PICC IN THE RIGHT ARM. Chest X-Ray 06/04/20 00:00 IMPRESSION: Endotracheal tube tip 5 cm above the walt. Right PICC catheter tip in the SVC. Other findings are stable copyright 2011 [employer]- All Rights Reserved KUB X-Ray 06/04/20 00:46 IMPRESSION: Tip of the enteric tube in the stomach copyright 2011 [employer]- All Rights Reserved All labs, radiographs, diagnostic studies and EKGs were personally reviewed: Yes In addition, reports of radiographic and diagnostic studies were read: Yes Assessment and Plan - Diagnosis (1) Pneumonia due to COVID-19 virus Is this a current diagnosis for this admission?: Yes Plan: This is a difficult age to have Covid. His risk of mortality is quite high. Support as best we can. (2) Atrial fibrillation with rapid ventricular response Is this a current diagnosis for this admission?: Yes Plan: He seems to be in SR right now. Has been in afib earlier. Continue to watch. (3) HTN (hypertension) Is this a current diagnosis for this admission?: Yes Plan: Controlled. Plan Summary: Support with vent as much as possible. Age is a major risk factor for mortality. Critical Time Critical Time (minutes): 35 Level of Care: ICU Anticipated discharge: Other Anticipated DC Timeframe: Other -: 1. The care of a critical patient is a dynamic process. This note is a visitor services representative synopsis but static in nature. The timeframe for treatments given in order is not necessarily the actual time these treatments may have been done. 2. This patient requires critical care secondary to ongoing requirements for therapy not offered or safe outside the critical care environment. Transfer to a lower level of care will result in altered life or limb morbidity and mortality. 3. Multidisciplinary rounds completed. 4. ABCDE bundle addressed.
--- NOTE | 2020-06-07 08:24 | PDOC CRITICAL CARE PROG REPORT ---
General Date:: 06/07/20 ICU Day:: 6 Ventilator Day:: 3 Hospital Day:: 15 Resuscitation Status: Full Code Events in the past 12 to 24 Hours:: This 84-year-old -[place] Citizen male was originally admitted on 05/22/2020 wi th a confirmed diagnosis of COVID-19 pneumonia. He was admitted to [facility] by Dr. Joaquin. On 06/01/2020, the patient was seen after a call from the rapid response team, which had responded for worsening hypoxia. At that time, the patient was found to be in atrial fibrillation with rapid ventricular response. He demonstrated prompt improvement in blood pressure and oxygen saturation with rate control. He was briefly transferred to the ICU service but was found to be stable on CPAP and transferred back to Dr. Joaquin service. Today, Dr. Joaquin called back with concerns that the patient needed endotracheal intubation. Rapid response team had been called multiple times to assess the pa tient in the interim. Again, this morning rapid response team was called for worsening hypoxia. 06/03: The patient was transferred to ICU for acute hypoxemic respiratory failure. At the time of clinical interview, the patient is lethargic but arousable. He does follow commands. He is noted to be on CPAP 22 with an SPO2 in the 80s. ABG obtained at 1213: pH 7.33, PCO2 34, PO2 51. Heparin drip was placed on hold for transport to the ICU. On scheduled metoprolol IV along with Cardizem infusion for rate control of atrial fibrillation. Remains on TPN; however, he is partially removed his PICC line. 06/04: Pulmonary decompensation needing intubation earlier this AM 06/05: No significant change in respiratory status. 06/06: Still on 100%. No major change. Not extubatable. 06/07: Cr better but K still 6. Need to lighten sedation some. Review of systems relevant to events:: Pulmonary, renal. Reason for ICU Addmission:: Acute hypoxemic respiratory failure; COVID-19 pneumonia; atrial fibrillation with rapid ventricular response. Now intubated. - Medications: Medications reviewed and adjusted accordingly: Yes Vasopressors:: Levophed Sedation:: Propofol. Physical Exam Vital Signs: Temp Pulse Resp BP Pulse Ox 97.9 F 110 H 23 H 89/61 L 92 06/07/20 04:00 06/06/20 19:59 06/06/20 19:59 06/06/20 16:00 06/07/20 04:08 Intake & Output 06/06/20 06/07/20 06/08/20 06:59 06:59 06:59 Intake Total 1149 1360 Output Total 87 1595 Balance 274 -235 Weight 90.1 kg 89.6 kg Weight/Height Weight 89.6 kg Height 5 ft 7 in General appearance: PRESENT: no acute distress Head exam: PRESENT: atraumatic, normocephalic Eye exam: PRESENT: conjunctiva pink, PERRLA. ABSENT: scleral icterus Ear exam: PRESENT: normal external ear exam Mouth exam: PRESENT: moist, tongue midline Respiratory exam: PRESENT: clear to auscultation sherin, decreased breath sounds. ABSENT: rales, rhonchi, wheezes Cardiovascular exam: PRESENT: RRR, tachycardia. ABSENT: diastolic murmur, rubs, systolic murmur GI/Abdominal exam: PRESENT: normal bowel sounds, soft. ABSENT: distended, guarding, mass, organolmegaly, rebound, tenderness Rectal exam: PRESENT: deferred Gentrourinary exam: PRESENT: indwelling catheter Extremities exam: PRESENT: full ROM. ABSENT: calf tenderness, clubbing, pedal edema Musculoskeletal exam: PRESENT: normal inspection Neurological exam: PRESENT: other - Not responsive. Skin exam: PRESENT: dry, intact, warm. ABSENT: cyanosis, rash Tubes/Lines: PRESENT: Endotracheal Tube, Nasogastic Tube Laboratory/Radiographs Laboratory Results: 06/06/20 10:00 06/07/20 05:57 06/06/20 06/06/20 06/06/20 05:35 10:00 10:00 WBC 21.0 H RBC 4.83 Hgb 13.2 L Hct 40.2 MCV 83 MCH 27.3 MCHC 32.8 RDW 17.8 H Plt Count 169 Seg Neutrophils % Not Reportable Carbonic Acid 1.37 H HCO3/H2CO3 Ratio 18:1 ABG pH 7.35 ABG pCO2 45.5 H ABG pO2 80.6 ABG HCO3 24.8 H ABG O2 Saturation 95.4 ABG Base Excess -1.0 FiO2 100% Sodium 146.4 H Potassium 6.1 H* Chloride 112 H Carbon Dioxide 25 Anion Gap 9 BUN 92 H Creatinine 1.72 H Est GFR ( Amer) 46 L Glucose 230 H Calcium 8.5 06/07/20 05:57 WBC RBC Hgb Hct MCV MCH MCHC RDW Plt Count Seg Neutrophils % Carbonic Acid HCO3/H2CO3 Ratio ABG pH ABG pCO2 ABG pO2 ABG HCO3 ABG O2 Saturation ABG Base Excess FiO2 Sodium 141.9 Potassium 6.0 H* Chloride 109 H Carbon Dioxide 27 Anion Gap 6 BUN 101 H Creatinine 1.58 H Est GFR ( Amer) 51 L Glucose 202 H Calcium 8.0 L 05/22/20 06/01/20 16:22 13:34 Troponin I 0.029 0.141 NT-Pro-B Natriuret Pep 510 H Impressions: Abdomen/Pelvis CT 05/22/20 17:23 IMPRESSION: Mild basilar atelectasis or infiltration, greater on the right. No acute abnormality is seen within the abdomen or pelvis. Additional, chronic-appearing findings are noted as above. TECHNICAL DOCUMENTATION: Quality ID # 436: Final reports with documentation of one or more dose reduction techniques (e.g., Automated exposure control, adjustment of the mA and/or kV according to patient size, use of iterative reconstruction technique) copyright 2011 [employer]- All Rights Reserved Chest CT 05/26/20 00:00 IMPRESSION: Diffuse bilateral ground-glass opacities consistent with either edema, atelectasis or pneumonia. Extensive centrilobular emphysematous changes. Probable underlying pulmonary fibrosis. Peripancreatic inflammatory changes suspicious for pancreatitis new from prior exam. Hyperattenuating lesion in the right kidney most likely hemorrhagic cyst. Guidance Fluoroscopy 05/29/20 00:00 IMPRESSION: Successful placement of upper extremity PICC line using ultrasound guidance. Interventional Vascular Procedure 05/29/20 00:00 IMPRESSION: Successful placement of upper extremity PICC line using ultrasound guidance. PICC Line Insertion 05/29/20 00:00 IMPRESSION: Successful placement of upper extremity PICC line using ultrasound guidance. PICC Line Exchange 06/03/20 00:00 IMPRESSION: SUCCESSFUL OVER THE WIRE REPLACEMENT OF AN EXISTING PICC FOR A NEW ONE THAT IS 5 FR DUAL LUMEN 41 CM PICC IN THE RIGHT ARM. Chest X-Ray 06/04/20 00:00 IMPRESSION: Endotracheal tube tip 5 cm above the walt. Right PICC catheter tip in the SVC. Other findings are stable copyright 2010 [employer]- All Rights Reserved KUB X-Ray 06/04/20 00:46 IMPRESSION: Tip of the enteric tube in the stomach copyright 2010 [employer]- All Rights Reserved All labs, radiographs, diagnostic studies and EKGs were personally reviewed: Yes In addition, reports of radiographic and diagnostic studies were read: Yes Assessment and Plan - Diagnosis (1) Pneumonia due to COVID-19 virus Is this a current diagnosis for this admission?: Yes Plan: He is not extubatable. Will attempt to wean vent as tolerated. (2) Atrial fibrillation with rapid ventricular response Is this a current diagnosis for this admission?: Yes Plan: He is in a regular rhythm however he is still tachycardic. (3) HTN (hypertension) Is this a current diagnosis for this admission?: Yes Plan: Controlled. Plan Summary: Kayexalate given for potassium, IVF increased to 150cc/hr. Critical Time Critical Time (minutes): 35 Level of Care: ICU Anticipated discharge: SNF Anticipated DC Timeframe: Other -: 1. The care of a critical patient is a dynamic process. This note is a [employer] sales representative synopsis but static in nature. The timeframe for treatments given in order is not necessarily the actual time these treatments may have been done. 2. This patient requires critical care secondary to ongoing requirements for therapy not offered or safe outside the critical care environment. Transfer to a lower level of care will result in altered life or limb morbidity and m ortality. 3. Multidisciplinary rounds completed. 4. ABCDE bundle addressed.
[2020-06-07] MEDS: RINGERS SOLUTION,LACTATED 1,000 ML IV PRN ×3 (08:45→20:30)
[2020-06-07] MEDS: PROPOFOL 1,000 MG/100 ML INFUS..BTL IV PRN ×2 (08:55→18:29)
[2020-06-07] MEDS: SODIUM POLYSTYRENE SULFONATE 15 GM/60 ML PO SCH ×2 (09:36→22:51)
[2020-06-07] MEDS: ASCORBIC ACID 500 MG TABLET NG SCH ×2 (09:37→18:08)
[2020-06-07] MEDS: METOPROLOL TARTRATE 50 MG TABLET PO SCH ×2 (09:37→22:55)
[2020-06-07] MEDS: PANTOPRAZOLE SODIUM 40 MG VIAL IV SCH (09:37)
[2020-06-07] MEDS: AMLODIPINE BESYLATE 10 MG TABLET NG SCH (09:37)
[2020-06-07] MEDS: CHOLECALCIFEROL (D3) 1,000 UNIT (25 MCG) TABLET NG SCH (09:37)
[2020-06-07] MEDS: ZINC SULFATE 220 MG CAPSULE NG SCH (09:38)
[2020-06-07] MEDS: TAMSULOSIN HCL 0.4 MG CAP.SR.24H PO SCH (09:38)
[2020-06-07] MEDS: ASPIRIN 81 MG TABLET, CHEWABLE NG SCH (09:38)
[2020-06-07] MEDS: FINASTERIDE 5 MG TABLET PO SCH (09:39)
[2020-06-07] MEDS: NORMAL SALINE 10 ML SDV (SCHEDULED) IV SCH ×2 (09:39→22:52)
[2020-06-07] MEDS: DEXAMETHASONE SOD PHOS INJ 10 MG/1 ML VIAL IV SCH ×2 (11:44→22:51)
[2020-06-07 14:57] LABS: INTERNATIONAL RATION (INR) 1.13; PROTHROMBIN TIME 14.7 SEC (11.4-15.4)
[2020-06-07] MEDS: MELATONIN 5 MG TABLET NG SCH (22:54)
[2020-06-08] MEDS: INSULIN REG, HUMAN 100 UNIT/ML 3 ML VIAL (PYX) SUBCUT SCH ×4 (00:18→17:49)
[2020-06-08] MEDS: HEPARIN SOD (PORCINE) 1,000 UNIT/ML 10 ML VIAL IV PRN (03:00)
[2020-06-08] MEDS: HEPARIN SODIUM,PORCINE/D5W 25,000 UNIT/250 ML RTUINJ IV PRN ×2 (03:01→22:58)
[2020-06-08] MEDS: PROPOFOL 1,000 MG/100 ML INFUS..BTL IV PRN ×3 (03:02→17:52)
[2020-06-08] MEDS: RINGERS SOLUTION,LACTATED 1,000 ML IV PRN ×3 (03:14→17:49)
[2020-06-08 05:08] LABS: ARTERIAL BLOOD BASE EXCESS 2.3 mmol/L; ARTERIAL BLOOD H2CO3 1.71 mmol/L (1.05-1.35); ARTERIAL BLOOD HCO3 29.3 mmol/L (20-24); ARTERIAL BLOOD O2 SATURATION 89.3 % (94-98); ARTERIAL BLOOD PCO2 56.8 mmHg (35-45); ARTERIAL BLOOD PH 7.33 (7.35-7.45); ARTERIAL BLOOD PO2 61.1 mmHg (80-100)
[2020-06-08 05:10] LABS: ARTERIAL BLOOD FIO2 75%
[2020-06-08 05:42] LABS: HEMOGLOBIN 11.3 g/dL (13.5-17.0); MEAN CORPUSCULAR HEMOGLOBIN 27.1 pg (27.0-33.4); MEAN CORPUSCULAR HGB CONC 33.1 g/dL (32.0-36.0); MEAN CORPUSCULAR VOLUME 82 fl (80-97); PLATELET COUNT 146 10^3/uL (150-450); RED BLOOD COUNT 4.15 10^6/uL (4.35-5.55); RED CELL DISTRIBUTION WIDTH 17.8 % (11.5-14.0); WHITE BLOOD COUNT 24.3 10^3/uL (4.0-10.5)
[2020-06-08 05:57] LABS: ABSOLUTE MONOCYTES # (MANUAL) 2.7 10^3/uL (0.1-1.4); BAND NEUTROPHILS % (MANUAL) 4 % (3-5); BASOPHILS % (MANUAL) 0 % (0-2); EOSINOPHILS % (MANUAL) 1 % (0-6); HYPOCHROMASIA 1+; LYMPHOCYTES % (MANUAL) 4 % (13-45); MONOCYTES % (MANUAL) 11 % (3-13); POLYCHROMASIA 1+; SEGMENTED NEUTROPHILS % (MAN) 80 % (42-78); TOTAL CELLS COUNTED 100
[2020-06-08 05:58] LABS: ANISOCYTOSIS 2+; PLATELET COMMENT ADEQUATE
[2020-06-08 06:32] LABS: ALBUMIN 2.1 g/dL (3.5-5.0); ALKALINE PHOSPHATASE 107 U/L (38-126); ASPARTATE AMINO TRANSFERASE 27 U/L (17-59); BILIRUBIN,DIRECT 0.5 mg/dL (0.0-0.4); BILIRUBIN,TOTAL 0.6 mg/dL (0.2-1.3); BLOOD UREA NITROGEN 89 mg/dL (7-20); C-REACTIVE PROTEIN 36.8 mg/L (<10.0); CALCIUM 7.6 mg/dL (8.4-10.2); CHLORIDE 112 mmol/L (98-107); GLUCOSE 224 mg/dL (75-110); PHOSPHORUS 4.5 mg/dL (2.5-4.5); POTASSIUM 5.3 mmol/L (3.6-5.0); TOTAL PROTEIN 4.8 g/dL (6.3-8.2)
[2020-06-08 06:35] LABS: CARBON DIOXIDE 28 mmol/L (22-30)
[2020-06-08 06:38] LABS: ANION GAP 4 (5-19)
[2020-06-08] MEDS: BUDESONIDE NEB 0.25 MG/2 ML AMPUL NEB SCH ×2 (09:00→20:52)
[2020-06-08] MEDS: LEVALBUTEROL HCL NEB 1.25 MG/3 ML AMPUL NEB PRN ×2 (09:03→20:52)
[2020-06-08] MEDS: SODIUM POLYSTYRENE SULFONATE 15 GM/60 ML PO SCH ×2 (10:40→22:57)
[2020-06-08] MEDS: DEXAMETHASONE SOD PHOS INJ 10 MG/1 ML VIAL IV SCH ×2 (10:42→22:57)
[2020-06-08] MEDS: AMLODIPINE BESYLATE 10 MG TABLET NG SCH (10:42)
[2020-06-08] MEDS: ASCORBIC ACID 500 MG TABLET NG SCH ×2 (10:42→17:49)
[2020-06-08] MEDS: METOPROLOL TARTRATE 50 MG TABLET PO SCH ×2 (10:42→22:57)
[2020-06-08] MEDS: PANTOPRAZOLE SODIUM 40 MG VIAL IV SCH (10:42)
[2020-06-08] MEDS: ZINC SULFATE 220 MG CAPSULE NG SCH (10:42)
[2020-06-08] MEDS: CHOLECALCIFEROL (D3) 1,000 UNIT (25 MCG) TABLET NG SCH (10:42)
[2020-06-08] MEDS: ASPIRIN 81 MG TABLET, CHEWABLE NG SCH (10:43)
[2020-06-08] MEDS: NORMAL SALINE 10 ML SDV (SCHEDULED) IV SCH ×2 (10:43→22:58)
[2020-06-08] MEDS: MELATONIN 5 MG TABLET NG SCH (22:57)
[2020-06-09] MEDS: INSULIN REG, HUMAN 100 UNIT/ML 3 ML VIAL (PYX) SUBCUT SCH ×3 (00:28→12:40)
[2020-06-09] MEDS: RINGERS SOLUTION,LACTATED 1,000 ML IV PRN ×3 (00:30→10:17)
[2020-06-09] MEDS: PROPOFOL 1,000 MG/100 ML INFUS..BTL IV PRN ×2 (04:19→10:16)
[2020-06-09 04:51] LABS: HEMATOCRIT 30.3 % (37.9-51.0); HEMOGLOBIN 9.8 g/dL (13.5-17.0); MEAN CORPUSCULAR HEMOGLOBIN 26.8 pg (27.0-33.4); MEAN CORPUSCULAR HGB CONC 32.2 g/dL (32.0-36.0); MEAN CORPUSCULAR VOLUME 83 fl (80-97); PLATELET COUNT 156 10^3/uL (150-450); RED BLOOD COUNT 3.64 10^6/uL (4.35-5.55); RED CELL DISTRIBUTION WIDTH 18.2 % (11.5-14.0); WHITE BLOOD COUNT 29.7 10^3/uL (4.0-10.5)
[2020-06-09 05:05] LABS: ALBUMIN 1.9 g/dL (3.5-5.0); ALKALINE PHOSPHATASE 111 U/L (38-126); ASPARTATE AMINO TRANSFERASE 29 U/L (17-59); BILIRUBIN,DIRECT 0.3 mg/dL (0.0-0.4); BILIRUBIN,TOTAL 0.5 mg/dL (0.2-1.3); BLOOD UREA NITROGEN 77 mg/dL (7-20); CALCIUM 7.5 mg/dL (8.4-10.2); CARBON DIOXIDE 35 mmol/L (22-30); CHLORIDE 111 mmol/L (98-107); GLUCOSE 221 mg/dL (75-110); POTASSIUM 4.9 mmol/L (3.6-5.0); TOTAL PROTEIN 4.4 g/dL (6.3-8.2)
[2020-06-09 05:10] LABS: ANION GAP 1 (5-19)
[2020-06-09 05:17] LABS: ABSOLUTE LYMPHOCYTES# (MANUAL) 0.3 10^3/uL (0.5-4.7); BAND NEUTROPHILS % (MANUAL) 2 % (3-5); BASOPHILS % (MANUAL) 0 % (0-2); EOSINOPHILS % (MANUAL) 0 % (0-6); LYMPHOCYTES % (MANUAL) 1 % (13-45); MONOCYTES % (MANUAL) 0 % (3-13); NUCLEATED RED BLOOD CELLS 3 /100 WBC (0); SEGMENTED NEUTROPHILS % (MAN) 97 % (42-78); TOTAL CELLS COUNTED 100
[2020-06-09 05:18] LABS: ANISOCYTOSIS 2+; PLATELET COMMENT ADEQUATE; POLYCHROMASIA 1+; TOXIC GRANULATION 1+
[2020-06-09] MEDS: HEPARIN SOD (PORCINE) 1,000 UNIT/ML 10 ML VIAL IV PRN (06:08)
[2020-06-09] MEDS ORDERED: EPINEPHRINE INJ 1 MG/10 ML DISP.SYRIN ONE (07:47)
[2020-06-09] MEDS ORDERED: SODIUM BICARBONATE 8.4% INJ 50 MEQ/50 ML DISP.SYRIN ONE (07:47)
[2020-06-09] MEDS: BUDESONIDE NEB 0.25 MG/2 ML AMPUL NEB SCH (08:00)
[2020-06-09] MEDS: LEVALBUTEROL HCL NEB 1.25 MG/3 ML AMPUL NEB PRN (08:00)
[2020-06-09] MEDS: ASCORBIC ACID 500 MG TABLET NG SCH (10:20)
[2020-06-09] MEDS: ZINC SULFATE 220 MG CAPSULE NG SCH (10:20)
[2020-06-09] MEDS: ASPIRIN 81 MG TABLET, CHEWABLE NG SCH (10:20)
[2020-06-09] MEDS: METOPROLOL TARTRATE 50 MG TABLET PO SCH (10:20)
[2020-06-09] MEDS: PANTOPRAZOLE SODIUM 40 MG VIAL IV SCH (10:21)
[2020-06-09] MEDS: DEXAMETHASONE SOD PHOS INJ 10 MG/1 ML VIAL IV SCH (10:21)
[2020-06-09] MEDS: CHOLECALCIFEROL (D3) 1,000 UNIT (25 MCG) TABLET NG SCH (10:21)
[2020-06-09] MEDS: AMLODIPINE BESYLATE 10 MG TABLET NG SCH (10:22)
[2020-06-09] MEDS: NORMAL SALINE 10 ML SDV (SCHEDULED) IV SCH (10:23)
[2020-06-09] MEDS ORDERED: NOREPINEPHRINE BITARTRATE INJ/PF 4 MG/4 ML SDV IV ONE (12:22)
[2020-06-09] MEDS ORDERED: DEXTROSE 5%-WATER 250 ML with NOREPINEPHRINE BITARTRATE 4 MG IV PRN ×2 (13:35)
--- NOTE | 2020-06-09 14:25 | PDOC CRITICAL CARE PROG REPORT ---
General Date:: 06/08/20 ICU Day:: 7 Ventilator Day:: 4 Hospital Day:: 16 Resuscitation Status: Full Code Events in the past 12 to 24 Hours:: This 84-year-old -[place] male was originally admitted on 05/22/2020 wi th a confirmed diagnosis of COVID-19 pneumonia. He was admitted to [facility] by Dr. Joaquin. On 06/01/2020, the patient was seen after a call from the rapid response team, which had responded for worsening hypoxia. At that time, the patient was found to be in atrial fibrillation with rapid ventricular response. He demonstrated prompt improvement in blood pressure and oxygen saturation with rate control. He was briefly transferred to the ICU service but was found to be stable on CPAP and transferred back to Dr. Joaquin service. Today, Dr. Joaquin called back with concerns that the patient needed endotracheal intubation. Rapid response team had been called multiple times to assess the pa tient in the interim. Again, this morning rapid response team was called for worsening hypoxia. 06/03: The patient was transferred to ICU for acute hypoxemic respiratory failure. At the time of clinical interview, the patient is lethargic but arousable. He does follow commands. He is noted to be on CPAP 22 with an SPO2 in the 80s. ABG obtained at 1213: pH 7.33, PCO2 34, PO2 51. Heparin drip was placed on hold for transport to the ICU. On scheduled metoprolol IV along with Cardizem infusion for rate control of atrial fibrillation. Remains on TPN; however, he is partially removed his PICC line. 06/04: Pulmonary decompensation needing intubation earlier this AM 06/05: No significant change in respiratory status. 06/06: Still on 100%. No major change. Not extubatable. 06/07: Cr better but K still 6. Need to lighten sedation some. 06/08: Off levophed. Weaning diprivan. Cant make vent changes. Review of systems relevant to events:: Pulmonary. Reason for ICU Addmission:: Acute hypoxemic respiratory failure; COVID-19 pneumonia; atrial fibrillation with rapid ventricular response. Now intubated. - Medications: Medications reviewed and adjusted accordingly: Yes Vasopressors:: None Sedation:: Propofol. Physical Exam Vital Signs: Temp Pulse Resp BP Pulse Ox 97.2 F 109 H 27 H 125/85 91 L 06/08/20 08:00 06/08/20 09:00 06/08/20 09:00 06/08/20 08:00 06/08/20 09:00 Intake & Output 06/07/20 06/08/20 06/09/20 06:59 06:59 06:59 Intake Total 1360 4462 41 Output Total 1595 2095 275 Balance -235 2367 -234 Weight 89.6 kg 90.7 kg Weight/Height Weight 90.7 kg Height 5 ft 7 in General appearance: PRESENT: no acute distress Head exam: PRESENT: atraumatic, normocephalic Eye exam: PRESENT: conjunctiva pink, EOMI, PERRLA. ABSENT: scleral icterus Ear exam: PRESENT: normal external ear exam Mouth exam: PRESENT: moist, tongue midline Respiratory exam: PRESENT: clear to auscultation sherin. ABSENT: rales, rhonchi, wheezes Cardiovascular exam: PRESENT: RRR, tachycardia. ABSENT: diastolic murmur, rubs, systolic murmur GI/Abdominal exam: PRESENT: normal bowel sounds, soft. ABSENT: distended, guarding, mass, organolmegaly, rebound, tenderness Rectal exam: PRESENT: deferred Gentrourinary exam: PRESENT: indwelling catheter Extremities exam: PRESENT: +1 edema Musculoskeletal exam: PRESENT: normal inspection Neurological exam: PRESENT: other - Sedated on propofol. Skin exam: PRESENT: dry, intact, warm. ABSENT: cyanosis, rash Tubes/Lines: PRESENT: Endotracheal Tube, Central Line, Nasogastic Tube Laboratory/Radiographs Laboratory Results: 06/08/20 04:45 06/08/20 04:45 06/08/20 06/08/20 06/08/20 04:45 04:45 04:45 WBC 24.3 H RBC 4.15 L Hgb 11.3 L Hct 34.0 L MCV 82 MCH 27.1 MCHC 33.1 RDW 17.8 H Plt Count 146 L Seg Neutrophils % Not Reportable Carbonic Acid 1.71 H HCO3/H2CO3 Ratio 17:1 ABG pH 7.33 L ABG pCO2 56.8 H ABG pO2 61.1 L ABG HCO3 29.3 H ABG O2 Saturation 89.3 L ABG Base Excess 2.3 FiO2 75% Sodium 143.8 Potassium 5.3 H Chloride 112 H Carbon Dioxide 28 Anion Gap 4 L BUN 89 H Creatinine 1.14 Est GFR ( Amer) > 60 Glucose 224 H Calcium 7.6 L Ionized Calcium [place] Phosphorus 4.5 Magnesium 3.0 H Total Bilirubin 0.6 AST 27 Alkaline Phosphatase 107 C-Reactive Protein 36.8 H Total Protein 4.8 L Albumin 2.1 L 06/08/20 04:45 WBC RBC Hgb Hct MCV MCH MCHC RDW Plt Count Seg Neutrophils % Carbonic Acid HCO3/H2CO3 Ratio ABG pH ABG pCO2 ABG pO2 ABG HCO3 ABG O2 Saturation ABG Base Excess FiO2 Sodium Potassium Chloride Carbon Dioxide Anion Gap BUN Creatinine Est GFR ( Amer) Glucose Calcium Ionized Calcium [place] 1.14 Phosphorus Magnesium Total Bilirubin AST Alkaline Phosphatase C-Reactive Protein Total Protein Albumin 05/22/20 06/01/20 16:22 13:34 Troponin I 0.029 0.141 NT-Pro-B Natriuret Pep 510 H Impressions: Abdomen/Pelvis CT 05/22/20 17:23 IMPRESSION: Mild basilar atelectasis or infiltration, greater on the right. No acute abnormality is seen within the abdomen or pelvis. Additional, chronic-appearing findings are noted as above. TECHNICAL DOCUMENTATION: Quality ID # 436: Final reports with documentation of one or more dose reduction techniques (e.g., Automated exposure control, adjustment of the mA and/or kV according to patient size, use of iterative reconstruction technique) copyright 2011 [employer]- All Rights Reserved Chest CT 05/26/20 00:00 IMPRESSION: Diffuse bilateral ground-glass opacities consistent with either edema, atelectasis or pneumonia. Extensive centrilobular emphysematous changes. Probable underlying pulmonary fibrosis. Peripancreatic inflammatory changes suspicious for pancreatitis new from prior exam. Hyperattenuating lesion in the right kidney most likely hemorrhagic cyst. Guidance Fluoroscopy 05/29/20 00:00 IMPRESSION: Successful placement of upper extremity PICC line using ultrasound guidance. Interventional Vascular Procedure 05/29/20 00:00 IMPRESSION: Successful placement of upper extremity PICC line using ultrasound guidance. PICC Line Insertion 05/29/20 00:00 IMPRESSION: Successful placement of upper extremity PICC line using ultrasound guidance. PICC Line Exchange 06/03/20 00:00 IMPRESSION: SUCCESSFUL OVER THE WIRE REPLACEMENT OF AN EXISTING PICC FOR A NEW ONE THAT IS 5 FR DUAL LUMEN 41 CM PICC IN THE RIGHT ARM. Chest X-Ray 06/04/20 00:00 IMPRESSION: Endotracheal tube tip 5 cm above the walt. Right PICC catheter tip in the SVC. Other findings are stable copyright 2010 [employer]- All Rights Reserved KUB X-Ray 06/04/20 00:46 IMPRESSION: Tip of the enteric tube in the stomach copyright 2010 [employer]- All Rights Reserved All labs, radiographs, diagnostic studies and EKGs were personally reviewed: Yes In addition, reports of radiographic and diagnostic studies were read: Yes Assessment and Plan - Diagnosis (1) Pneumonia due to COVID-19 virus Is this a current diagnosis for this admission?: Yes Plan: Not able to lower FIO2 yet. Age 84 is risk factor for mortality. (2) Atrial fibrillation with rapid ventricular response Is this a current diagnosis for this admission?: Yes Plan: This has been inactive. (3) HTN (hypertension) Is this a current diagnosis for this admission?: Yes Plan: Hypotensive on levophed. Plan Summary: Maintain support as is. He needs high FIO2 and at his age, Covid mortality is quite high. Critical Time Critical Time (minutes): 35 Level of Care: ICU Anticipated discharge: Other Anticipated DC Timeframe: Other -: 1. The care of a critical patient is a dynamic process. This note is a screening representative synopsis but static in nature. The timeframe for treatments given in order is not necessarily the actual time these treatments may have been done. 2. This patient requires critical care secondary to ongoing requirements for therapy not offered or safe outside the critical care environment. Transfer to a lower level of care will result in altered life or limb morbidity and mortality. 3. Multidisciplinary rounds completed. 4. ABCDE bundle addressed.
--- NOTE | 2020-06-09 14:34 | Death Summary ---
Summary Date : 06/09/20 Time of :: 14:17 Autopsy: No Resuscitation Status: Full Code - Final Diagnosis (1) Pneumonia due to COVID-19 virus Is this a current diagnosis for this admission?: Yes (2) Atrial fibrillation with rapid ventricular response Is this a current diagnosis for this admission?: Yes (3) HTN (hypertension) Is this a current diagnosis for this admission?: Yes Hospital Course:: This patient was an 84 yo man who contracted COVID pneumonia and was hospitalized since 05/23/20. He has been in the ICU since 06/01. He was intubated for worsening hypoxia. He was on fairly high FIO2. He has been on 100% for most of the last few days. Today he became hypoxic, he often recovers but today it took him longer to recover. He had an asystolic arrest and did not respond to ACLS and a total of 6 epinephrine doses. After this he was still asystolic and he was pronounced at 1:17 PM on 06/09/20.
[2020-06-09 16:22] VITALS: BP 48/11
== END 2020-06-09 14:17 | disposition left against medical advice (07) | DRG 207 ==
LOC: ER 12:48 → EH 05-23 00:37 → 3N 05-23 18:19 → ICU 06-03 12:50
PROVIDERS: ADMIT Internal Medicine Critical Care Medicine; ATTEND Internal Medicine Critical Care Medicine
PROC: XW13325 Transfusion of Convalescent Plasma (Nonautologous) into Peripheral Vein, Percutaneous Approach, New Technology Group 5 (ICD-10-PCS; 2020-05-23)
PROC: XW033E5 Introduction of Remdesivir Anti-infective into Peripheral Vein, Percutaneous Approach, New Technology Group 5 (ICD-10-PCS; 2020-05-24)
PROC: 5A09557 Assistance with Respiratory Ventilation, Greater than 96 Consecutive Hours, Continuous Positive Airway Pressure (ICD-10-PCS; 2020-05-26)
PROC: 02HV33Z Insertion of Infusion Device into Superior Vena Cava, Percutaneous Approach (ICD-10-PCS; 2020-05-29)
PROC: B548ZZA Ultrasonography of Superior Vena Cava, Guidance (ICD-10-PCS; 2020-05-29)
PROC: 3E0436Z Introduction of Nutritional Substance into Central Vein, Percutaneous Approach (ICD-10-PCS; 2020-05-29)
PROC: 5A1955Z Respiratory Ventilation, Greater than 96 Consecutive Hours (ICD-10-PCS; principal; 2020-06-04)
PROC: 0BH17EZ Insertion of Endotracheal Airway into Trachea, Via Natural or Artificial Opening (ICD-10-PCS; 2020-06-04)
DX: U07.1 COVID-19 (principal); J12.82 Pneumonia due to coronavirus disease 2019; J96.01 Acute respiratory failure with hypoxia; K85.90 Acute pancreatitis without necrosis or infection, unspecified; I10 Essential (primary) hypertension; Z78.1 Physical restraint status; I48.91 Unspecified atrial fibrillation; J43.2 Centrilobular emphysema; N40.1 Benign prostatic hyperplasia with lower urinary tract symptoms; R63.0 Anorexia; R79.1 Abnormal coagulation profile; K21.9 Gastro-esophageal reflux disease without esophagitis; Z87.891 Personal history of nicotine dependence; Z79.899 Other long term (current) drug therapy; Z79.3 Long term (current) use of hormonal contraceptives
CPT/HCPCS: 36415; 36430; 36573; 36584; 36600; 71045; 71250; 74018; 74177; 76937; 77001; 80048; 80053; 80061; 81001; 82330; 82728; 82803; 82962; 83605; 83690; 83735; 83880; 84100; 84134; 84478; 84484; 85025; 85027; 85379; 85610; 85652; 85730; 86140; 86900; 86901; 87040; 87070; 87077; 87150; 92950; 93005; 93010; 94002; 94003; 94660; 96361; 96365; 96375; 99285; 0241U; C1769; C9113; C9803; J0171; J0456; J1100; J1642; J1644; J1650; J1815; J1940; J2060; J2270; J2704; J2930; J3490; J7030; J7050; J7060; J7120; J7614